=== PATIENT | male | born 1930 | race Caucasian/White ===

== ENCOUNTER 2016-06-03 07:39 | Emergency (ER) | payer MEDICARE ==
[2013-04-16 12:32] VITALS: BMI 33.5
[~2016-06-03 07:39] MED LIST: CARDIZEM60 MG PO; LISINOPRIL10 MG PO; NORCO 5/325 TAB1 TA1 PO; PRILOSEC20 MG PO; RYTHMOL150 MG PO
[2016-06-03 08:49] LABS: ALBUMIN 3.8 g/dL (3.4-5.0); ALKALINE PHOSPHATASE 66 U/L (46-116); ALT (SGPT) 18 U/L (10-68); BILIRUBIN - TOTAL 0.93 mg/dL (0.2-1.3); CALC OSMOLALITY 282 mosm/kg (275-300); CALCIUM 9.1 mg/dL (8.5-10.1); CARBON DIOXIDE 30.2 mmol/L (21.0-32.0); CHLORIDE - SERUM 102 mmol/L (98-107); CREATININE - SERUM 1.4 mg/dL (0.6-1.3); GLUCOSE 120 mg/dL (74-106); POTASSIUM - SERUM 4.5 mmol/L (3.5-5.1); PROTEIN - SERUM 7.2 g/dL (6.4-8.2); SODIUM 139 mmol/L (136-145); UREA NITROGEN 24 mg/dL (7-18); eGFR NON AFRICAN AMERICAN 51 mL/min (90-120)
[2016-06-03 08:58] LABS: PRO BNP 807 pg/mL (0-450)
[2016-06-03 08:59] LABS: TROPONIN-I < 0.017 ng/mL (0.000-0.060)
[2016-06-03 09:29] LABS: BASOPHILS 0.1 % (0.0-2.0); EOSINOPHILS 1.1 % (0-7); HEMATOCRIT 47.2 % (42.0-54.0); HEMOGLOBIN 15.6 g/dL (13.5-17.5); IMMATURE GRANULOCYTES 0.3 % (0-5); LYMPHOCYTES 22.8 % (15-50); MCHC 33.1 g/dL (31.0-37.0); MCV 96.7 fL (80.0-100.0); MEAN PLATELET VOLUME 11.4 fL (7.4-10.4); NEUTROPHILS 66.7 % (40-80); PLATELET COUNT 133 10x3/uL (130-400); RBC 4.88 10x6/uL (4.20-6.10); RDW 13.8 % (11.5-14.5); WBC 7.3 10x3/uL (4.8-10.8)
[2016-06-03 11:43] LABS: APPEARANCE CLEAR (CLEAR); BACTERIA FEW /hpf (NONE SEEN); BILIRUBIN NEGATIVE (NEGATIVE); COLOR STRAW (YELLOW); EPITHELIAL CELLS 0-5 /hpf (0-5); GLUCOSE NEGATIVE (NEGATIVE); KETONE NEGATIVE (NEGATIVE); LEUKOCYTE ESTERASE 1+ (NEGATIVE); MUCUS <1+ /lpf (NONE SEEN); NITRITE POSITIVE (NEGATIVE); PH 7.5 (5.0-6.0); PROTEIN NEGATIVE (NEGATIVE); UROBILINOGEN NORMAL (NORMAL); WHITE CELLS - URINE 0-5 /hpf (0-5)
[2016-08-10 12:10] VITALS: BMI 31.8
== END 2016-06-03 11:46 | disposition home or self-care (01) ==
LOC: EDBD 07:39 → D.ER 07:39
PROVIDERS: Emergency Medicine
DX: I50.9 Heart failure, unspecified (principal); R06.00 Dyspnea, unspecified; I10 Essential (primary) hypertension; K21.9 Gastro-esophageal reflux disease without esophagitis; I48.91 Unspecified atrial fibrillation; Z95.0 Presence of cardiac pacemaker

== ENCOUNTER → 2016-07-16 16:49 | Outpatient (CLI) | payer MEDICARE ==
[2013-04-16 12:32] VITALS: BMI 33.5
[~2016-07-16 16:49] MED LIST changes: +DILAUDID4 MG PO; +FLOMAX0.4 MG PO; +FORTAZ INJ500 MG IM; +MILK OF MAGNESI30 ML PO; +MIRALAX17 GM PO; +OMEPRAZOLE20 M1 PO; +PERCOCET 10/3251 TA1 PO; +PROPAFENONE HC150 MG PO; +PROSCAR5 MG PO
[2016-08-10 12:10] VITALS: BMI 31.8
== END | disposition home or self-care (01) ==
LOC: D.LABREF 16:49
DX: R31.9 Hematuria, unspecified (principal)

== ENCOUNTER 2016-08-04 05:21 | Day surgery (SDC) | payer MEDICARE, MEDICAID ==
--- NOTE | 2016-08-03 11:51 | NUR ---
PATIENT HERE FOR [facility] APPT. DR. CELESTIN HERE TO SEE PATIENT & REVIEW EKG. T97.8, R22, HR122, BP 146/106. PATIENT STATES "I'M HAVING A LOT OF PAIN 8/10 SCALE BECAUSE OF THIS KIDNEY STONE" ALSO RELATES "I DON'T THINK I TOOK MY MORNING MEDS". EKG & ABOVE INFO FAXED/RELATED TO MALISSA AT DR. VU'S OFFICE. MALISSA'S ASST. CALLED BACK & STATES "PATIENT IS OK FOR SURGERY TOMORROW, TELL HIM TO GO HOME & TAKE HIS MEDS". PATIENT & DAUGHTER INFORMED. ESCORTED TO CAR BY THIS NURSE. JOSE BENNETT CRNA NOTIFIED PATIENT CLEARED.
[2016-08-03 13:36] LABS: ANION GAP 10.2 mmol/L (8-16); CALCIUM 9.2 mg/dL (8.5-10.1); CARBON DIOXIDE 33.7 mmol/L (21.0-32.0); CREATININE - SERUM 1.2 mg/dL (0.6-1.3); POTASSIUM - SERUM 3.9 mmol/L (3.5-5.1)
[2016-08-03 13:45] LABS: APTT 26.5 SECONDS (22.8-39.4)
[2016-08-03 14:40] LABS: BASOPHILS 0.4 % (0.0-2.0); EOSINOPHILS 0.4 % (0-7); HEMATOCRIT 45.5 % (42.0-54.0); HEMOGLOBIN 14.9 g/dL (13.5-17.5); IMMATURE GRANULOCYTES 0.2 % (0-5); LYMPHOCYTES 35.6 % (15-50); MCHC 32.7 g/dL (31.0-37.0); MCV 97.6 fL (80.0-100.0); MONOCYTES 13.2 % (2-11); NEUTROPHILS 50.2 % (40-80); RBC 4.66 10x6/uL (4.20-6.10); RDW 13.2 % (11.5-14.5); WBC 5.7 10x3/uL (4.8-10.8)
[2016-08-03 14:42] LABS: PLATELET COUNT 102 10x3/uL (130-400)
[2016-08-03 14:43] LABS: MEAN PLATELET VOLUME 12.2 fL (7.4-10.4)
[2016-08-04] VITALS (10 sets, daily range): BP systolic 128–174; BP diastolic 55–115; Ht 177.8 cm; Wt 100.9 kg
[~2016-08-04] VITALS: Ht 177.8 cm; Wt 100.9 kg
--- NOTE | ~2016-08-04 | HEMODYNAMI ---
PATIENT:COOPER BUCIO MEDICAL RECORD: [id number] : 28 [id number] ADMISSION DATE: 08/04/16 Generatedon:08/04/201612:51 Patient name: COOPER BUCIO Patient #: [id number] SSN: : [id number] Date of study: 08/04/2016 Page: Of Hemodynamic Procedure Report Patient Data Patient Demographics Procedure consent was obtained First Name: COOPER Gender: Male Last Name: FORTUNATO : 1930 Middle Initial: G Age: 86 year(s) Patient #: [id number] Race: Unknown Additional ID: [id number] Contact details [address]: [address] [place] [address] State: [place] City: [place] Zip code: [address] Admission Admission Data Admission Date: 08/04/2016 Admission Time: 5:21 Procedure Procedure Types Cath Procedure Peripheral Cath Diagnostic Procedure Miscellaneous Procedure Description Procedure Date Procedure Date: 08/04/2016 Procedure Start Time: 12:19 Procedure Staff Name Function Phi León MD Performing Physician Haydee Marin RT Scrub Ana Merlos RN Nurse Jean Pierre Vogt RT Monitor Flor Silver RN Nurse Procedure Data Cath Procedure Fluoroscopy Diagnostic fluoroscopy Total fluoroscopy Time: 7.2 time: 7.2 min min Diagnostic fluoroscopy Total fluoroscopy dose: 199 dose: 199 mGy mGy Contrast Material Contrast Material Type Amount (ml) Isovue 300 25 Procedure Medications Medication Administration Route Dosage Versed I.V. 1 mg Fentanyl 50 mcg Versed I.V. 2 mg Fentanyl I.V. 50 mcg unlisted medication I.V.P.B 1 g Fentanyl I.V. 50 mcg Fentanyl I.V. 50 mcg Versed I.V. 1 mg Hemodynamics Rest Heart Rate: 124 (bpm) Snapshots Pre Cath Intra NCS Post Cath Vital Signs Time Heart Resp SPO2 NIBP (mmHg) Rhythm Pain Sedation Rate (ipm) (%) Status Level (bpm) 11:39:24 85 21 100 Disturbed A-Fib 0 (11) 10(A) , No pain 11:41:50 114 16 99 Measuring A-Fib 0 (11) 10(A) , No pain 11:41:54 115 12 99 151/115(133) A-Fib 0 (11) 10(A) , No pain 11:46:06 93 17 100 147/101(122) A-Fib 0 (11) 10(A) , No pain 11:50:14 93 16 100 141/96(115) A-Fib 0 (11) 10(A) , No pain 11:54:23 85 17 100 135/95(118) A-Fib 0 (11) 10(A) , No pain 11:58:32 91 16 100 137/103(124) A-Fib 0 (11) 10(A) , No pain 12:03:04 100 17 100 139/101(117) A-Fib 0 (11) 10(A) , No pain 12:07:12 92 16 100 138/92(109) A-Fib 0 (11) 10(A) , No pain 12:11:25 93 14 100 120/80(105) A-Fib 0 (11) 10(A) , No pain 12:15:25 86 16 99 128/93(111) A-Fib 0 (11) 9(A) , No pain 12:20:26 84 15 100 126/83(109) A-Fib 0 (11) 9(A) , No pain 12:24:32 95 16 99 125/90(106) A-Fib 0 (11) 9(A) , No pain 12:28:36 97 16 99 126/89(109) A-Fib 0 (11) 9(A) , No pain 12:32:38 93 17 99 129/94(107) A-Fib 0 (11) 10(A) , No pain 12:36:41 101 15 98 132/94(115) A-Fib 0 (11) 9(A) , No pain 12:40:47 103 25 98 145/102(125) A-Fib 0 (11) 9(A) , No pain 12:45:01 115 16 99 153/99(125) A-Fib 0 (11) 9(A) , No pain 12:49:01 No Cuff A-Fib 0 (11) 9(A) , No pain Medications Time Medication Route Dose Verified Delivered Reason Notes Effectiven ess by by 11:50:08 Cefipime I.V.P.B 1 g Ana Ana Per Chelita Chelita protocol RN RN 12:09:18 Versed I.V. 1 mg Ana Ana for Chelita Chelita sedation RN RN 12:09:52 Fentanyl I.V. 50 Ana Ana for mcg Chelita Chelita sedation RN RN 12:14:35 Fentanyl 50 Ana Ana for mcg Chelita Chelita sedation RN RN 12:19:01 Versed I.V. 2 mg Flor Flor for Nadeem [facility] RN sedation 12:19:15 Fentanyl I.V. 50 Flor Flor for mcg King YAMILEX Nadeem RN sedation 12:25:12 Fentanyl I.V. 50 Flor Flor for mcg King YAMILEX Nadeem RN sedation 12:33:01 Versed I.V. 1 mg Flor Flor for Nadeem [facility] RN sedation Procedure Log Time Note 11:18:26 Jean Pierre Vogt RT (R) (CV) sent for patient. Start room use. 11:18:35 Time tracking: Regular hours 11:18:39 Plan of Care:Hemodynamics will remain stable., Cardiac rhythm will remain stable., Comfort level will be maintained., Respiratory function will remain adequate., Patient/ family verbilizes understanding of procedure., Procedure tolerated without complication., Recovers from procedure without complications.. 11:18:52 Patient received from Outpatients to IR Alert and oriented. Tansferred to table in Prone position. 11:18:53 Correct patient and procedure confirmed by team. 11:18:55 Signed procedure consent form obtained from patient. 11:18:57 ECG and BP/O2 sat monitors applied to patient. 11:18:59 Full Disclosure recording started 11:18:59 - 11:19:03 H&P Date Dictated: 08/04/2016 H&P Addendum completed by physician on day of procedure. (MUST COMPLETE FOR ALL OUTPATIENTS). 11:19:04 Pre-procedure instructions explained to patient. 11:19:04 Pre-op teaching completed and patient verbalized understanding. 11:19:06 Family in waiting room. 11:19:15 Patient NPO since Midnight. 11:19:19 Is the patient allergic to Iodine/contrast media? No. 11:19:22 Is patient on blood thinner?No 11:19:24 Patient diabetic? No. 11:19:31 ----Pre-sedation anethsthesia assessment.---- 11:19:33 Previous problem with sedation/anesthesia? No ? 11:19:35 Snore? Yes 11:19:36 Sleep apnea? No 11:19:38 Deviated septum? No 11:19:39 Opens mouth fully? Yes 11:19:42 Sticks out tongue? Yes 11:19:45 Airway obstruction? No ? 11:19:51 Dentures? Yes out 11:19:57 Use device set IR Diagnostic 11:19:58 Sterile Angiographic Pack opened to sterile field. 11:20:02 Bag Decanter opened to sterile field. 11:31:05 Patient pain scale 0/10 no. 11:31:31 IV patent on arrival in left forearm with 0.9% NaCl at [facility]. 11:31:33 Sharps counted by scrub and verified by R.N. 11:31:33 Alarms reviewed by R. N. 11:40:01 Vital chart was started 11:40:02 Baseline sample Acquired. 11:40:06 Rhythm: sinus rhythm 11:50:08 Cefipime 1 g I.V.P.B was administered by Ana Merlos RN; Per protocol; 11:53:30 Baseline sample Acquired. 12:00:18 Right Lumbar was prepped with chlora-prep and draped in sterile fashion . 12:07:46 Physician arrived 12:07:47 --------ALL STOP TIME OUT------ 12:07:47 Final Timeout: patient, procedure, and site verified with staff and physician. All members of the team are in agreement. 12:07:52 Right Lumbar site verified by team. 12:08:14 Physical assessment completed. ASA score P 3 - A patient with severe systemic disease as per Phi León MD. 12:08:18 Sedation plan: IV Moderate Sedation Versed, Fentanyl 12:09:18 Versed 1 mg I.V. was administered by Ana Merlos RN; for sedation; 12:09:52 Fentanyl 50 mcg I.V. was administered by Ana Merlos RN; for sedation; 12:14:35 Fentanyl 50 mcg was administered by Ana Merlos RN; for sedation; 12:18:56 Procedure started. 12:19:01 Versed 2 mg I.V. was administered by Flor Silver RN; for sedation; 12:19:04 Local anesthetic to Lumbar area with Lidocaine 1% by Phi León MD.INITIAL ACCESS ONLY 12:19:07 KIT, INTRODUCER ACCUSTICK II W/C opened to sterile field. 12:19:15 Fentanyl 50 mcg I.V. was administered by Flor Silver RN; for sedation; 12:25:12 Fentanyl 50 mcg I.V. was administered by Flor Silver RN; for sedation; 12:31:[address] .035 145 glide wire opened to sterile field. 12:31:55 Terumo 5FR COBRA 65CM glide catheter opened to sterile field. 12:33:01 Versed 1 mg I.V. was administered by Flor Silver RN; for sedation; 12:35:53 [place] Sci AMPLATZ Super stiff 180cm guide wire opened to sterile field . 12:37:08 [place] Sci Amplatz Super Stiff 75CM guide wire opened to sterile field. 12:37:09 BAG, DRAINAGE EMPTY 600ML W/VIKTORIA opened to sterile field. 12:45:23 Procedure ended.(Physican Out) 12:46:11 Fluoroscopy time 07.20 minutes. 12:46:32 Fluoroscopy dose: 199 mGy 12:46:32 Flurop Dose total: 199 12:47:33 Contrast amount:Isovue 300 25ml. 12:47:35 Sharps counted by scrub and verified by R.N. 12:47:42 Post-op/insertion site Right Femoral artery dressed using a 4 x 4 and Tegaderm. 12:47:53 5fr.cath left in pt 12:47:59 Post-procedure physical assessment completed. ASA score P 3 - A patient with severe systemic disease as per Phi León MD. 12:48:02 Post procedure rhythm: unchanged. 12:48:04 Post procedure instruction explained to patient.Patient verbalizes understanding. 12:48:05 Procedure and supply charges have been captured, reviewed, submitted an d are correct. 12:49:18 Report given to Other. 12:49:22 Patient transfered to Other with Bed. 12:51:08 Vital chart was stopped Device Usage Item Name Manufacture Quantity Catalog Hospital Part Current Minimal Lot# / Number Charge Number Stock Stock Serial# Code Sterile Cardinal 1 [id number] 5 Angiographic Health Pack Bag Decanter Microtek 1 [id number] [id number] [id number] 5 Medical [employer] KIT, [place] 1 [id number] 678990 726098 5 INTRODUCER Scientific ACCUSTICK II W/C Cook Cook Medical 1 [id number] 047569 5 [id number]RUNNER .035 145 glide wire Terumo 5FR Terumo 1 [id number] 389375 281236 5 COBRA 65CM glide catheter [employer] Sci [place] 1 [id number] [id number] 5 [id number] AMPLATZ Scientific Super stiff 180cm guide wire [employer] [place] 1 [id number] 962864 775805 5 [id number] Amplatz Scientific Super Stiff 75CM guide wire BAG, Merit 1 [id number] 419347 995730 5 DRAINAGE Medical EMPTY 600ML W/VIKTORIA Signature Audit [place] Stage Time Signature Unsigned Intra-Procedure 08/04/2016 Jean Pierre 12:51:04 PM Sin RT (R) (CV) Signatures Monitor : Jean Pierre Signature : Sin RT Date : Time : [address] [address] [place] [address]
--- NOTE | 2016-08-04 00:47 | NUR ---
C/O INCISIONAL PAIN RATES PAIN LEVEL #6. PERCOCET TAB ONE PO GIVEN FOR PAIN CONTROL.
[~2016-08-04 05:21] MED LIST changes: -DILAUDID4 MG PO; -FLOMAX0.4 MG PO; -FORTAZ INJ500 MG IM; -MILK OF MAGNESI30 ML PO; -MIRALAX17 GM PO; -OMEPRAZOLE20 M1 PO; -PERCOCET 10/3251 TA1 PO; -PROPAFENONE HC150 MG PO; -PROSCAR5 MG PO
[2016-08-04] MEDS ORDERED: OMEPRAZOLE20 M1 PO (08:58)
[2016-08-04] MEDS ORDERED: PERCOCET 10/3251 TA1 PO (09:00)
[2016-08-04] MEDS ORDERED: FORTAZ INJ500 MG IM (09:02)
--- NOTE | 2016-08-04 15:48 | NUR ---
REPORT RECEIVED FROM YAMILEX POTTS IN RECOVERY AT THIS TIME. STATED THAT PT'S PRESSURE HAD BEEN RUNNING IN THE 140-150'S SYSTOLIC AND WAS 112 DIASTOLIC. ASKED HER IF SHE GAVE THE PATIENT ANYTHING FOR THE BLOOD PRESSURE AND HER RESPONSE WAS, "THAT IS HIS NORMAL RANGE." EXPLAINED THAT A BLOOD PRESSURE IN THAT RANGE WAS NOT NORMAL AND SHE STATED, "WELL MAYBE HIS MEDICAL DOCTORS COULD PROVIDE YOU WITH SOME MEDICATION TO GIVE HIM." EXPLAINED THAT THERE WAS NOT A CONSULT FOR MEDICAL MANAGEMENT. REPORT CONCLUDED AND PT BROUGHT TO ROOM 2218. BLOOD PRESSURE 150/108 AND HEART RATE [address] WILL NOTIFY DR AHUMADA.
--- NOTE | 2016-08-04 16:16 | NUR ---
NOTIFIED DR AHUMADA OF BLOOD PRESSURE AND PAIN AT THIS TIME. NEW ORDERS GIVEN FOR PAIN MEDICATION AND WAS TOLD TO CONTACT DR CELESTIN REGARDING HYPERTENSION. ORDER OBTAINED TO PLACE PT ON TELEMETRY DUE TO EXTENSIVE CARDIAC HISTORY.
--- NOTE | 2016-08-04 16:40 | NUR ---
DR CELESTIN NOTIFIED AT THIS TIME REGARDING BLOOD PRESSURE 174/106 AND HEART RATE 123 A-FLUTTER. HE GAVE ORDERS TO GET A STAT EKG AND SAID THAT HE WOULD COME TO THE FLOOR AND SEE THE PATIENT.
--- NOTE | 2016-08-04 16:56 | NUR ---
DR CELESTIN ON THE FLOOR AT THIS TIME. NEW ORDER GIVEN FOR APRESOLINE AND TO CONSULT CARDIOLOGY PER DR CELESTIN. APRESOLINE 10MG ADMINISTERED AT THIS TIME PER ORDER. FAMILY AT BEDSIDE. WILL CONTINUE TO MONITOR PT.
--- NOTE | 2016-08-04 17:15 | NUR ---
BLOOD PRESSURE 132/85 AND HEAR RATE 123 A-FLUTTER AT THIS TIME. REQUESTING INCREASE IN PAIN MEDICATION. LEFT VOICEMAIL ON DR AHUMADA'S TELEPHONE. FAMILY REMAINS AT BEDSIDE. CALL LIGHT IN REACH.
--- NOTE | 2016-08-04 18:35 | NUR ---
DR AHUMADA ON THE FLOOR ASSESSING PT. NEW ORDERS GIVEN FOR PAIN MEDICATION.
--- NOTE | 2016-08-04 19:44 | NUR ---
ASSESSMENT PER FLOWSHEET. PT ON TELM. SHOWS ATRIAL FLUTTER WITH HR 123. NO DISTRESS. IV PATENT RT HAND SALINE LOCKED. IF PATENT LEFT ARM OF LR AT 20 CC'S/HR B/P=89/51 INCREASED PT'S IV RATE TO 75CC'S/HR. NEPHROSTOMY TUBE PATENT TO RT FLANK AREA CONNECTED TO A GODWIN BAG WITH BLOODY DRAINAGE NOTED. O2 ON 4L/M PER NC. NO DISTRESS. C/O INCISIONAL PAIN. RATES PAIN LEVEL #6-7. PERCOCET TAB ONE PO GIVEN FOR PAIN CONTROL.
--- NOTE | 2016-08-04 21:30 | NUR ---
VOIDS IN URINAL. BLOODY URINE.
[2016-08-05] VITALS: BP 142/84
--- NOTE | 2016-08-05 02:00 | NUR ---
VOIDS IN URINAL AND SPILLS SOME ON FLOOR CLEANED AREA. PT RESTLESS.
[2016-08-05 03:00] VITALS: BP 143/64
--- NOTE | 2016-08-05 04:46 | NUR ---
RESTING AT THIS TIME ANTIBIOTIC INFUSING AT THIS TIME.
--- NOTE | 2016-08-05 07:00 | NUR ---
REPORT RECEIVED FROM GOGGLES ASSEMBLER NURSE. CALL LIGHT IN REACH.
--- NOTE | 2016-08-05 08:31 | NUR ---
ASSESSMENT COMPLETED. AM MEDS ADMINISTERED. CALL LIGHT IN REACH. FAMILY IN ROOM. WILL CONTINUE WITH PLAN OF CARE.
--- NOTE | 2016-08-05 08:35 | NUR ---
PATIENT ALERT IN BED WITH GUEST AT BEDSIDE. RESPIRATIONS EVEN AND UNLABORED. MATILDE BROUSSARD PRIMARY NURSE AT BEDSIDE. SIDE RAILS UP X2. BED IN LOW POSITION. CALL LIGHT IN REACH.
[2016-08-05 09:08] VITALS: BP 97/55
--- NOTE | 2016-08-05 09:28 | OP ---
PATIENT NAME: COOPER BUCIO MEDICAL RECORD: [id number] :29 LOCATION:[id number] ADMISSION DATE: SURGEON: MICHAEL AHUMADA MD DATE OF OPERATION: 08/04/2016 SURGEON: Michael Ahumada MD. ANESTHESIA: General anesthesia by Dr. Saba. PREOPERATIVE DIAGNOSIS: Right lower pole 10 mm infected kidney stone. FINDINGS: Right lower pole 10 mm infected kidney stone. PROCEDURES: Right percutaneous nephrolithotomy. SPECIMENS: Renal stone. ESTIMATED BLOOD LOSS: Minimal CLINICAL HISTORY: The patient is an 86-year-old male patient of Dr. Sherif French. 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 He has been going to Dr. French's office twice a day for several months, getting IM Fortaz injection to treat this chronic infection. The source of his infections seems to be a chronically infected right renal stone. It should be noted that a CT scan report was incorrectly reported as having the stone on the left side. However, I have reviewed the CT and KUB imaging with Dr. Phi León, the interventional radiologist and we both agreed that the stone is definitely on the right side. We will contact the radiologist who read the initial report to have him correct his report. He comes now to have the stone removed by right percutaneous nephrolithotomy. Earlier today, he went to the interventional radiology suite and Dr. León managed to get access into the lower pole christen containing the stone. Dr. León also left a nephroureteral catheter going down to the bladder and in the nephroureteral catheter lumen, an Amplatz Super Stiff wire was placed. We come now to complete the removal of the stone. DESCRIPTION OF PROCEDURE: The patient was given a general anesthesia while he was in supine position. He was then turned into the prone position on the Stephan frame. His head was well supported. He was then prepped and draped. We used a craniotomy draped with a small hole cut out to allow the nephroureteral wire to go through the hole. A 1-cm incision was made on each side of the nephrostomy access site on the skin. A dual-lumen catheter was then inserted under fluoroscopic vision to make sure that it would go into the proximal ureter. When it was in the proximal ureter, a safety wire which was a Sensor wire was placed down into the bladder through the second lumen of the dual lumen catheter. Once the [address], the dual lumen catheter was removed, leaving the [address] The sensor wire was then clamped to the drapes to act as a safety wire. We worked over the Super Stiff wire. The NephroMax balloon dilator was then inserted over the Super Stiff wire. Once the tip of the balloon dilator was at the UPJ junction level, we then dilated the balloon to 18 atmospheres. A 30-Luxembourgish working sheath was then inserted over the balloon to the level of the renal stone. The balloon was then deflated and removed entirely. This Super Stiff wire remained as well as a working sheath. We put the nephroscope down. We were able to find the stone quite readily. I was unable to get the Cook Pgrx-J-Pklccw graspers around the stone because it OPERATIVE REPORT [id number] COOPER BUCIO filled up the lower pole christen and the basket could not expand around the stone. We then used trifurcated grasper to pull the stone into the renal pelvis. We could then get the Mcbq-S-Fusjpo basket wires around the stone and the stone was entirely removed. Fluoroscopy revealed no further radiodense stones. CT scan previously had shown only one stone present. Nephroscopy was again repeated to make sure that no further stone particles remain. He was stone free. We then removed the scope. A 24-Luxembourgish Malecot nephrostomy tube was then placed down over the Super Stiff wire into the renal pelvis. Once it was in the renal pelvis, the stylet was removed allowing the Malecot wings to expand. The Super Stiff wire was entirely removed. The working sheath was removed. Fluoroscopy confirmed that we were indeed in the renal pelvis. The safety wire was also entirely removed. The skin was sutured using a 2-0 silk suture. It was also sutured to the nephrostomy tube. The nephrostomy tube was put to bag drainage. Dressings of 4 x 4 and ABD pads and tape were applied over the nephrostomy tube site. The patient will be admitted for overnight observation. TRANSINT:[id number] Voice Confirmation ID: [id number] DOCUMENT ID: [id number] MICHAEL AHUMADA MD at 0928 CC: [id number] DICTATION DATE: 08/04/16 1500 COLLECTION TEAM LEAD: 08/04/16 1620 [facility] [address] [id number]
--- NOTE | 2016-08-05 10:20 | NUR ---
DRSG TO BACK SATURATED. PRESSURE DRSG APPLIED. C/O GAS. INSTRUCTED PATIENT TO WALK IN HALLWAY WHICH HE DID. O2 HAS BEEN WEANED OFF. SATS 96% ON ROOM AIR. CALL LIGHT IN REACH.
--- NOTE | 2016-08-05 10:49 | NUR ---
NORCO AND XANAX PO WITH AM MEDS ADMINISTERED. CALL LIGHT IN REACH.
--- NOTE | 2016-08-05 12:10 | NUR ---
DR. AHUMADA IN ROOM TO SEE PATIENT.
--- NOTE | 2016-08-05 12:34 | NUR ---
CARMITA PO. DILAUDID 2 MG SIVP. FAMILY IN ROOM. CALL LIGHT IN REACH.
[2016-08-05 12:55] VITALS: BP 92/51
--- NOTE | 2016-08-05 13:50 | NUR ---
STATES HE STILL HAS PAIN. TOO SOON FOR ANYTHING ELSE AT THIS TIME.
--- NOTE | 2016-08-05 15:32 | NUR ---
PERCOCET AND PROTONIX. FORTAZ IVPB. CALL LIGHT IN REACH.
--- NOTE | 2016-08-05 16:50 | NUR ---
DRSG CHANGED AGAIN D/T SATURATION.
[2016-08-05 16:59] VITALS: BP 109/63
--- NOTE | 2016-08-05 18:56 | NUR ---
NO CHANGES IN INITIAL ASSESSMENT. CALL LIGHT IN REACH. WILL CONTINUE WITH PLAN OF CARE.
[2016-08-05 20:00] VITALS: BP 128/83
[2016-08-06] VITALS: BP 115/67
--- NOTE | 2016-08-06 07:15 | NUR ---
REPORT RECEIVED FROM DELI DEPARTMENT MANAGER NURSE. CALL LIGHT IN REACH.
[2016-08-06 07:57] VITALS: BP 107/69
--- NOTE | 2016-08-06 08:51 | NUR ---
ASSESSMENT COMPLETED. AM MEDS ADMINISTERED. DR. AHUMADA IN ROOM. NEPHROSTOMY TUBE REMOVED AND DRSTeri APPLIED. FAMILY IN ROOM. CALL LIGHT IN REACH. WILL CONTINUE WITH PLAN OF CARE.
--- NOTE | 2016-08-06 09:39 | NUR ---
iv dcd with cath intact.
--- NOTE | 2016-08-06 10:49 | NUR ---
PERCOCET 2 PO PER C/O PAIN OF 7. CALL LIGHT IN REACH.
--- NOTE | 2016-08-06 11:50 | NUR ---
RESTING WITH EYES CLOSED. RESP EVEN AND UNLABORED. CALL LIGHT IN REACH.
[2016-08-06] MEDS ORDERED: DILAUDID4 MG PO (11:59)
--- NOTE | 2016-08-06 13:10 | NUR ---
PATIENT UP IN HALLWAY WITH FAMILY. NO SIGNS OF DISTRESS NOTED.
--- NOTE | 2016-08-06 13:15 | NUR ---
DC INSTRUCTIONS EXPLAINED TO PATIENT AND FAMILY. VERBALIZED UNDERSTANDING. RX FOR DILAUDID HANDED TO PATIENT/
[2016-08-13 14:22] LABS: CALCULI - CA OXALATE DIHYDRATE 10 % (()); CALCULI - CA OXALATE MONOHYDR 70 % (()); CALCULI - CALCIUM PHOSPHATE 20 % (()); CALCULI - COLOR Tan (()); CALCULI - SIZE 11x8x6 mm (()); CALCULI - WEIGHT 394.2 mg (())
== END 2016-08-06 13:15 | disposition home or self-care (01) ==
LOC: D.MS 05:21 → D.OPS 05:21 → D.PAN 07:30 → D.OPS 11:00 → D.MS 15:34 → D.OPS 08-05 07:30 → D.PAN 08-05 07:30 → D.OPS 08-06 13:15
PROVIDERS: Anesthesiology; Urology
DX: N20.0 Calculus of kidney (principal)

== ENCOUNTER 2016-08-07 22:28 | Inpatient (IN) | payer MEDICARE, MEDICAID ==
[~2016-08-07 22:28] MED LIST changes: +DILAUDID4 MG PO; +FORTAZ INJ500 MG IM; +OMEPRAZOLE20 M1 PO; +PERCOCET 10/3251 TA1 PO
[2016-08-07 23:24] LABS: APPEARANCE CLOUDY (CLEAR); BILIRUBIN NEGATIVE (NEGATIVE); COLOR YELLOW (YELLOW); GLUCOSE NEGATIVE (NEGATIVE); KETONE NEGATIVE (NEGATIVE); LEUKOCYTE ESTERASE 1+ (NEGATIVE); NITRITE NEGATIVE (NEGATIVE); PROTEIN 1+ mg/dL (NEGATIVE); SPECIFIC GRAVITY 1.005 (1.005-1.020); UROBILINOGEN NORMAL (NORMAL)
[2016-08-07 23:27] LABS: RED CELLS - URINE >50 /hpf (0-5)
[2016-08-07 23:28] LABS: AMORPHOUS SEDIMENT <1+ /lpf (NONE SEEN); BACTERIA FEW /hpf (NONE SEEN); EPITHELIAL CELLS 0-5 /hpf (0-5)
[2016-08-08 01:03] LABS: CALCIUM 8.5 mg/dL (8.5-10.1); CARBON DIOXIDE 35.3 mmol/L (21.0-32.0); CREATININE - SERUM 1.3 mg/dL (0.6-1.3); POTASSIUM - SERUM 3.3 mmol/L (3.5-5.1)
[2016-08-08 01:06] LABS: HEMOGLOBIN 15.4 g/dL (13.5-17.5); LYMPHOCYTES 17.7 % (15-50); MCH 32.4 pg (26.0-34.0); MCHC 34.2 g/dL (31.0-37.0); MCV 94.7 fL (80.0-100.0); NEUTROPHILS 72.6 % (40-80); RBC 4.75 10x6/uL (4.20-6.10); RDW 13.9 % (11.5-14.5)
[2016-08-08 01:07] LABS: PLATELET COUNT 57 10x3/uL (130-400)
[2016-08-08] MEDS ORDERED: FLOMAX0.4 MG PO (02:09)
[2016-08-08] MEDS ORDERED: MIRALAX17 GM PO (03:27)
[2016-08-08] MEDS ORDERED: MILK OF MAGNESI30 ML PO (03:27)
[2016-08-09 06:07] LABS: BASOPHILS 0.1 % (0-2); EOSINOPHILS 1.6 % (0-7); IMMATURE GRANULOCYTES 0.1 % (0-5); LYMPHOCYTES 19.8 % (15-50); MCH 31.6 pg (26.0-34.0); MCHC 32.3 g/dL (31.0-37.0); MEAN PLATELET VOLUME 11.1 fL (7.4-10.4); MONOCYTES 13.3 % (2-11); NEUTROPHILS 65.1 % (40-80); RDW 13.3 % (11.5-14.5)
[2016-08-09 06:21] LABS: ALBUMIN 2.2 g/dL (3.4-5.0); ANION GAP 7.4 mmol/L (8-16); BILIRUBIN - TOTAL 0.61 mg/dL (0.2-1.3); CALCIUM 8.3 mg/dL (8.5-10.1); CREATININE - SERUM 1.1 mg/dL (0.6-1.3); POTASSIUM - SERUM 3.4 mmol/L (3.5-5.1); PROTEIN - SERUM 4.8 g/dL (6.4-8.2)
[2016-08-09 06:28] LABS: HEMATOCRIT 35.3 % (42.0-54.0); HEMOGLOBIN 11.4 g/dL (13.5-17.5); MCV 97.8 fL (80.0-100.0); PLATELET COUNT 77 10x3/uL (130-400); RBC 3.61 10x6/uL (4.20-6.10); WBC 7.4 10x3/uL (4.8-10.8)
[2016-08-09 15:33] LABS: CKMB 0.7 U/L (0.0-3.6); CREATINE KINASE 21 UL (21-232)
[2016-08-09 15:34] LABS: TROPONIN-I < 0.017 ng/mL (0.000-0.060)
[2016-08-09 21:27] LABS: CKMB 0.6 U/L (0.0-3.6); CREATINE KINASE 31 UL (21-232)
[2016-08-09 21:32] LABS: TROPONIN-I < 0.017 ng/mL (0.000-0.060)
[2016-08-10 03:53] LABS: BASOPHILS 0.2 % (0-2); HEMATOCRIT 34.5 % (42.0-54.0); IMMATURE GRANULOCYTES 0.2 % (0-5); MCHC 31.9 g/dL (31.0-37.0); MCV 97.2 fL (80.0-100.0); MEAN PLATELET VOLUME 11.2 fL (7.4-10.4); MONOCYTES 13.5 % (2-11); NEUTROPHILS 58.1 % (40-80); RBC 3.55 10x6/uL (4.20-6.10); RDW 13.1 % (11.5-14.5); WBC 6.1 10x3/uL (4.8-10.8)
[2016-08-10 04:18] LABS: PLATELET COUNT 131 10x3/uL (130-400)
[2016-08-10 04:35] LABS: ALBUMIN 2.2 g/dL (3.4-5.0); ANION GAP 8.4 mmol/L (8-16); BILIRUBIN - TOTAL 0.57 mg/dL (0.2-1.3); CALCIUM 8.6 mg/dL (8.5-10.1); CARBON DIOXIDE 31.7 mmol/L (21.0-32.0); CREATININE - SERUM 1.1 mg/dL (0.6-1.3); PROTEIN - SERUM 5.2 g/dL (6.4-8.2); THYROID STIMULATING HORMONE 7.27 uIU/mL (0.36-3.74)
[2016-08-10 04:39] LABS: CKMB 0.8 U/L (0.0-3.6); CREATINE KINASE 20 UL (21-232)
[2016-08-10 04:40] LABS: POTASSIUM - SERUM 4.1 mmol/L (3.5-5.1); TROPONIN-I 0.016 ng/mL (0.000-0.060)
[2016-08-10 09:56] LABS: CREATINE KINASE 25 UL (21-232)
[2016-08-10 09:59] LABS: TROPONIN-I < 0.017 ng/mL (0.000-0.060)
[2016-08-11 05:49] LABS: BASOPHILS 0.2 % (0-2); EOSINOPHILS 3.8 % (0-7); HEMATOCRIT 37.4 % (42.0-54.0); HEMOGLOBIN 12.2 g/dL (13.5-17.5); IMMATURE GRANULOCYTES 0.2 % (0-5); LYMPHOCYTES 31.8 % (15-50); MCH 31.6 pg (26.0-34.0); MCHC 32.6 g/dL (31.0-37.0); MCV 96.9 fL (80.0-100.0); MEAN PLATELET VOLUME 10.3 fL (7.4-10.4); MONOCYTES 16.9 % (2-11); NEUTROPHILS 47.1 % (40-80); RBC 3.86 10x6/uL (4.20-6.10); RDW 13.3 % (11.5-14.5); WBC 5.3 10x3/uL (4.8-10.8)
[2016-08-11 05:53] LABS: PLATELET COUNT 167 10x3/uL (130-400)
[2016-08-11 06:08] LABS: ALBUMIN 2.4 g/dL (3.4-5.0); ALKALINE PHOSPHATASE 50 U/L (46-116); ALT (SGPT) 16 U/L (10-68); BILIRUBIN - TOTAL 0.68 mg/dL (0.2-1.3); CALC OSMOLALITY 278 mosm/kg (275-300); CALCIUM 8.9 mg/dL (8.5-10.1); CARBON DIOXIDE 30.2 mmol/L (21.0-32.0); CHLORIDE - SERUM 104 mmol/L (98-107); GLUCOSE 103 mg/dL (74-106); POTASSIUM - SERUM 4.2 mmol/L (3.5-5.1); PROTEIN - SERUM 5.7 g/dL (6.4-8.2); SODIUM 139 mmol/L (136-145); UREA NITROGEN 16 mg/dL (7-18); eGFR NON AFRICAN AMERICAN 75 mL/min (90-120)
[2016-08-12 06:07] LABS: BASOPHILS 0.2 % (0-2); EOSINOPHILS 3.5 % (0-7); HEMATOCRIT 36.7 % (42.0-54.0); HEMOGLOBIN 11.7 g/dL (13.5-17.5); IMMATURE GRANULOCYTES 0.8 % (0-5); MCHC 31.9 g/dL (31.0-37.0); MCV 97.1 fL (80.0-100.0); MEAN PLATELET VOLUME 11.2 fL (7.4-10.4); MONOCYTES 17.6 % (2-11); NEUTROPHILS 52.9 % (40-80); PLATELET COUNT 123 10x3/uL (130-400); RBC 3.78 10x6/uL (4.20-6.10); RDW 13.3 % (11.5-14.5); WBC 5.2 10x3/uL (4.8-10.8)
[2016-08-12 06:27] LABS: ALBUMIN 2.3 g/dL (3.4-5.0); ALKALINE PHOSPHATASE 54 U/L (46-116); ALT (SGPT) 16 U/L (10-68); CALC OSMOLALITY 277 mosm/kg (275-300); CALCIUM 8.1 mg/dL (8.5-10.1); CARBON DIOXIDE 29.7 mmol/L (21.0-32.0); CHLORIDE - SERUM 104 mmol/L (98-107); CREATININE - SERUM 0.9 mg/dL (0.6-1.3); GLUCOSE 102 mg/dL (74-106); POTASSIUM - SERUM 4.1 mmol/L (3.5-5.1); PROTEIN - SERUM 5.3 g/dL (6.4-8.2); SODIUM 138 mmol/L (136-145); UREA NITROGEN 19 mg/dL (7-18); eGFR NON AFRICAN AMERICAN 85 mL/min (90-120)
[2016-08-12] MEDS ORDERED: LISINOPRIL10 MG PO (09:43)
[2016-08-12] MEDS ORDERED: CARDIZEM60 MG PO (09:43)
[2016-08-12] MEDS ORDERED: PROPAFENONE HC150 MG PO (09:44)
[2016-08-12] MEDS ORDERED: OMEPRAZOLE20 M1 PO (09:44)
[2016-08-12] MEDS ORDERED: PROSCAR5 MG PO (10:06)
[2016-08-12] MEDS ORDERED: DILAUDID4 MG PO (10:07)
== END 2016-08-12 10:50 | disposition home or self-care (01) | DRG 690 ==
LOC: D.ER 22:28 → D.MS 08-08 01:37 → D.M2 08-09 17:39
PROVIDERS: Family Medicine; Internal Medicine Cardiovascular Disease; ADMIT Urology
DX: N10 Acute pyelonephritis (principal); I48.92 Unspecified atrial flutter; B96.5 Pseudomonas (aeruginosa) (mallei) (pseudomallei) as the cause of diseases classified elsewhere; Z16.23 Resistance to quinolones and fluoroquinolones; I10 Essential (primary) hypertension; I48.91 Unspecified atrial fibrillation; K21.9 Gastro-esophageal reflux disease without esophagitis; G47.33 Obstructive sleep apnea (adult) (pediatric); N20.0 Calculus of kidney; K44.9 Diaphragmatic hernia without obstruction or gangrene; G89.29 Other chronic pain; M54.9 Dorsalgia, unspecified; N40.0 Benign prostatic hyperplasia without lower urinary tract symptoms; K59.09 Other constipation; Z87.891 Personal history of nicotine dependence

== ENCOUNTER 2017-01-14 18:00 | Inpatient (IN) | payer MEDICARE, MEDICAID ==
[~2017-01-14 18:00] MED LIST changes: +FLOMAX0.4 MG PO; +MILK OF MAGNESI30 ML PO; +MIRALAX17 GM PO; +PROPAFENONE HC150 MG PO; +PROSCAR5 MG PO
--- NOTE | 2017-01-14 18:20 | NUR ---
RECEIVED TO ROOM 2216 FROM MD OFFICE. CALL LIGHT IN REACH.
--- NOTE | 2017-01-14 18:25 | NUR ---
URINAL GIVEN TO PATIENT FOR SAMPLE
--- NOTE | 2017-01-14 18:30 | NUR ---
IV SITED TO LEFT WRIST WITH 22 GA X1 STICK PER YAMILEX CELAYA.
--- NOTE | 2017-01-14 18:51 | NUR ---
NS AND FRUIT AND VEGETABLE FACTORY WORKER INITIATED PER ORDER. CALL LIGHT IN REACH. WILL CONTINUE WITH PLAN OF CARE.
[2017-01-14] MEDS ORDERED: LISINOPRIL10 MG PO (18:59)
[2017-01-14 19:19] LABS: BASOPHILS 0.2 % (0-2); EOSINOPHILS 1.1 % (0-7); HEMATOCRIT 37.2 % (42.0-54.0); HEMOGLOBIN 12.3 g/dL (13.5-17.5); LYMPHOCYTES 29.8 % (15-50); MCH 31.8 pg (26.0-34.0); MCHC 33.1 g/dL (31.0-37.0); MCV 96.1 fL (80.0-100.0); MEAN PLATELET VOLUME 10.7 fL (7.4-10.4); MONOCYTES 10.8 % (2-11); NEUTROPHILS 58.1 % (40-80); RBC 3.87 10x6/uL (4.20-6.10); RDW 13.3 % (11.5-14.5); WBC 6.3 10x3/uL (4.8-10.8)
[2017-01-14 19:20] LABS: PLATELET COUNT 169 10x3/uL (130-400)
[2017-01-14 19:32] LABS: ANION GAP 6.8 mmol/L (8-16); CALCIUM 8.6 mg/dL (8.5-10.1); CARBON DIOXIDE 31.2 mmol/L (21.0-32.0); CREATININE - SERUM 1.3 mg/dL (0.6-1.3)
[2017-01-14 20:00] VITALS: BP 153/61
[2017-01-14 20:57] LABS: APPEARANCE CLEAR (CLEAR); BILIRUBIN NEGATIVE (NEGATIVE); COLOR YELLOW (YELLOW); GLUCOSE NEGATIVE (NEGATIVE); KETONE NEGATIVE (NEGATIVE); NITRITE NEGATIVE (NEGATIVE); PROTEIN NEGATIVE (NEGATIVE); UROBILINOGEN NORMAL (NORMAL)
[2017-01-14 20:58] LABS: BACTERIA FEW /hpf (NONE SEEN); RED CELLS - URINE OCC /hpf (0-5); WHITE CELLS - URINE 0-5 /hpf (0-5)
[2017-01-14 22:05] VITALS: BP 153/61; BMI 29.3
[2017-01-15] VITALS: BP 133/50
[2017-01-15 04:00] VITALS: BP 116/46
--- NOTE | 2017-01-15 05:54 | NUR ---
20G PIV STARTED IN LFA. LEFT WRIST PIV D/C WITH CATH INTACT DUE TO PUMP CONSTANTLY ALARMING
[2017-01-15 07:55] VITALS: BP 155/71
--- NOTE | 2017-01-15 08:10 | NUR ---
SCHEDULED MEDICATIONS ADMINISTERED WITHOUT DIFFICULTY AT THIS TIME. RESPIRATIONS EVEN AND NON LABORED. CALL LIGHT IN REACH, WILL CONTINUE WITH PLAN OF CARE.
[2017-01-15 08:40] VITALS: BP 159/81
--- NOTE | 2017-01-15 11:20 | NUR ---
SCHEDULED ANTIBIOTIC ADMINISTERED AT THIS TIME. MEDICAL EDUCATION COORDINATOR SETTINGS CHANGED PER ORDER.
[2017-01-15 12:44] VITALS: BP 139/64
--- NOTE | 2017-01-15 14:00 | NUR ---
LYING ON LEFT SIDE WITH RESPIRATIONS EVEN AND NON LABORED. CALL LIGHT IN REACH AND FAMILY AT BEDSIDE. WILL CONTINUE WITH PLAN OF CARE.
[2017-01-15 20:00] VITALS: BP 163/80
[2017-01-16 04:13] VITALS: BP 108/60
--- NOTE | 2017-01-16 04:49 | NUR ---
ASSESSED, PT IS ASLEEP WITH NO DISTRESS NOTED AND EASY RESPIRATIONS. THE BED IS LOW, RAILS UP X'S 2 WITH THE CALL LIGHT AT HAND.
[2017-01-16 05:34] LABS: BASOPHILS 0 % (0-2); EOSINOPHILS 1.9 % (0-7); HEMATOCRIT 36.7 % (42.0-54.0); HEMOGLOBIN 12.1 g/dL (13.5-17.5); LYMPHOCYTES 26.7 % (15-50); MCH 31.2 pg (26.0-34.0); MCV 94.6 fL (80.0-100.0); MEAN PLATELET VOLUME 10.7 fL (7.4-10.4); MONOCYTES 13.2 % (2-11); NEUTROPHILS 58.2 % (40-80); PLATELET COUNT 164 10x3/uL (130-400); RBC 3.88 10x6/uL (4.20-6.10); RDW 13.1 % (11.5-14.5); WBC 5.8 10x3/uL (4.8-10.8)
[2017-01-16 05:36] LABS: ANION GAP 11.2 mmol/L (8-16); CALCIUM 8.8 mg/dL (8.5-10.1); CARBON DIOXIDE 26.8 mmol/L (21.0-32.0); CREATININE - SERUM 1.1 mg/dL (0.6-1.3)
--- NOTE | 2017-01-16 07:25 | NUR ---
PATIENT RECEIVED IN RIGHT LATERAL POSITION RESTING QUIETLY. NO SIGNS OF DISTRESS NOTED. DENIES NEEDS. SIDE RAILS UP X2. BED IN LOW POSITION. CALL LIGHT AND IMAGING TECHNICIAN BUTTON IN REACH.
[2017-01-16 08:44] VITALS: BP 123/66
--- NOTE | 2017-01-16 08:45 | NUR ---
PATIENT SITTING UP ON SIDE OF BED ALERT ALERT. NO SIGNS OF DISTRESS NOTED. SCHEDULED MEDICATION ADMINISTERED. BED IN LOW POSITION. CALL LIGHT IN RECAH.
--- NOTE | 2017-01-16 09:50 | NUR ---
PATIENT REPORTS ACCIDENTALLY ARAVIND IV OUT. IV WITH CATH TIP INTACT.
--- NOTE | 2017-01-16 10:30 | NUR ---
ATTEMPTED TO RESITE IV TO LEFT FOREARM X2 FAILED ATTEMPTS. WILL HAVE A DIFFERENT NURSE RESITE IV
--- NOTE | 2017-01-16 11:20 | NUR ---
22 GAUGE SITED TO LEFT WRIST BY YAMILEX CELAYA
--- NOTE | 2017-01-16 13:00 | NUR ---
PATIENT LEFT LATERAL POSITION RESTING QUIETLY WITH EYES CLOSED. RESPIRATIONS EVEN AND UNLABORED. SIDE RAILS UP X2. BED IN LOW POSITION. CALL LIGHT IN REACH.
--- NOTE | 2017-01-16 16:53 | NUR ---
ALERT IN BED WATCHING TV. NO SIGNS OF DISTRESS NOTED. SIDE RAILS UP X2. BED IN LOW POSITION. CALL LIGHT IN REACH.
--- NOTE | 2017-01-16 19:00 | NUR ---
REPORT RECEIVED AND CARE OF PT ASSUMED. PT LYING ON RIGHT SIDE WITH EYES CLOSED AND UNLABORED BREATHING. IV IN LEFT WRIST PATENT WITH D5 1/2 NS INFUSING AT 75 ML / HR. WILL MONITOR [place]OSLEY FOR NEEDS. CALL LIGHT WITHIN REACH.
[2017-01-16 20:00] VITALS: BP 138/60
--- NOTE | 2017-01-16 21:02 | NUR ---
HS MEDICATIONS GIVEN. WILL CONTINUE TO MONITOR FOR NEEDS.
--- NOTE | 2017-01-16 22:29 | NUR ---
PT RESTING QUIETLY AT THIS TIME ON LEFT SIDE WITH EYE CLOSED. WILL CONTINUE TO MONITOR FOR NEEDS.
[2017-01-17] VITALS: BP 167/87
[2017-01-17 05:01] VITALS: BP 127/66
--- NOTE | 2017-01-17 07:40 | NUR ---
A&O, SITTING UP ON THE SIDE OF THE BED, DENIES NEEDS, NO DISTRESS NOTED, CALL LIGHT IN REACH, WILL CONTINUE TO MONITOR
[2017-01-17 08:48] VITALS: BP 143/59
[2017-01-17 10:02] LABS: BASOPHILS 0 % (0-2); EOSINOPHILS 1.6 % (0-7); HEMOGLOBIN 12.3 g/dL (13.5-17.5); IMMATURE GRANULOCYTES 0.2 % (0-5); LYMPHOCYTES 42.7 % (15-50); MCH 31.1 pg (26.0-34.0); MCHC 32.4 g/dL (31.0-37.0); MEAN PLATELET VOLUME 10.3 fL (7.4-10.4); MONOCYTES 12.7 % (2-11); NEUTROPHILS 42.8 % (40-80); PLATELET COUNT 159 10x3/uL (130-400); RBC 3.96 10x6/uL (4.20-6.10); RDW 13.2 % (11.5-14.5); WBC 5.1 10x3/uL (4.8-10.8)
[2017-01-17 10:20] LABS: ALBUMIN 3.1 g/dL (3.4-5.0); ALKALINE PHOSPHATASE 55 U/L (46-116); ALT (SGPT) 15 U/L (10-68); CALC OSMOLALITY 285 mosm/kg (275-300); CALCIUM 8.5 mg/dL (8.5-10.1); CARBON DIOXIDE 30.8 mmol/L (21.0-32.0); CHLORIDE - SERUM 107 mmol/L (98-107); GLUCOSE 94 mg/dL (74-106); POTASSIUM - SERUM 4.1 mmol/L (3.5-5.1); PROTEIN - SERUM 5.8 g/dL (6.4-8.2); SODIUM 142 mmol/L (136-145); UREA NITROGEN 21 mg/dL (7-18); eGFR NON AFRICAN AMERICAN 75 mL/min (90-120)
--- NOTE | 2017-01-17 12:11 | NUR ---
RESTING QUIETLY IN BED AT THIS TIME. REPORTS BEING UPSET BECAUSE MD SAID HE COULD GO HOME AND THEN SAID HE HAD TO STAY TILL TUESDAY. DISCUSSED RATIONALES WITH PATIENT. DENIES NEEDS.
[2017-01-17 12:36] VITALS: BP 145/68
--- NOTE | 2017-01-17 13:29 | NUR ---
Patient Name: COOPER UBCIO Admission Status: Elective Accout number: [id number] Admission Date: 01-14-2017 : 1929 Admission Diagnosis: Attending: ROSA MARIA, Current LOS: 3 Anticipated DC Date: Planned Disposition: Home Primary Insurance: [facility] Discharge Planning Comments: CM met with patient to assess discharge planning needs. Patient stated that he lives independently at home in [facility]. Patient states that his Daughter, Gin will be the one to take him home at discharge. Patient denies any HH needs and does not want any at discharge. He as a cane, walker, and shower chair at home. He states that there are not any stairs at his home. CM will continue to follow and assist with discharge planning needs. PCP: Gillian Bill's Gin Florentino (Daughter) Fork Truck Operator: Kristen Brand * Is the patient Alert and Oriented? Yes 0 * How many steps to enter\exit or inside your home? 0 0 * PCP Gillian 0 * Pharmacy [facility] 0 * Preadmission Environment Home Alone 0 * ADLs Independent 0 * Equipment Cane Shower Chair Walker 0 * List name and contact numbers for known caregivers / representatives who currently or will assist patient after discharge: Gin Florentino (daughter) 0 * Additional services required to return to the preadmission environment? Yes 0 * Can the patient safely return to the preadmission environment? Yes 0 * Has this patient been hospitalized within the prior 30 days at any hospital? No 0 Grand Total: 0
[2017-01-17 15:56] VITALS: BP 107/54
--- NOTE | 2017-01-17 18:38 | NUR ---
IV INFILTRATED ON LW, 20G LEFT FOREARM STARTED WITH BLOOD RETURN
--- NOTE | 2017-01-17 20:00 | NUR ---
ASSESSMENT PER FLOWSHEET. IV PATENT LEFT FOREARM OF D51/2NS INFUSING AT 75CC'S/HR. SITE CLEAR. SR UP X2 CALL LIGHT WITHIN REACH FAMILY MEMBERS IN ROOM. ASSORTER LAUNDRY OF DILAUDID IN USE FOR PAIN CONTROL WIOTH SETTINGS AT 0.2MG Q10MIN W/6MG Q4H L/O. MEDS GIVEN PER JUN.
--- NOTE | 2017-01-17 21:30 | NUR ---
MEDS PER MAR.
[2017-01-17 22:27] VITALS: BP 99/40
--- NOTE | 2017-01-17 23:47 | NUR ---
RESTING QUIETLY DENIES NEEDS. SR UP X2 CALL LIGHT WITHIN REACH.
[2017-01-18] VITALS: BP 105/59
--- NOTE | 2017-01-18 03:57 | NUR ---
EYES CLOSED RESPIRATIONS WITH EASE AND UNLABORED.
[2017-01-18 04:00] VITALS: BP 107/66
--- NOTE | 2017-01-18 05:36 | NUR ---
EYES CLOSED RESPIRATIONS WITH EASE AND UNLABORED.
[2017-01-18 06:17] LABS: BASOPHILS 0.2 % (0-2); EOSINOPHILS 2.2 % (0-7); HEMATOCRIT 35.4 % (42.0-54.0); HEMOGLOBIN 11.7 g/dL (13.5-17.5); IMMATURE GRANULOCYTES 0.2 % (0-5); LYMPHOCYTES 33.5 % (15-50); MCH 31.5 pg (26.0-34.0); MCHC 33.1 g/dL (31.0-37.0); MCV 95.4 fL (80.0-100.0); MEAN PLATELET VOLUME 10.8 fL (7.4-10.4); MONOCYTES 15.5 % (2-11); NEUTROPHILS 48.4 % (40-80); PLATELET COUNT 154 10x3/uL (130-400); RBC 3.71 10x6/uL (4.20-6.10); RDW 13.5 % (11.5-14.5)
[2017-01-18 06:34] LABS: ALBUMIN 2.8 g/dL (3.4-5.0); ALKALINE PHOSPHATASE 60 U/L (46-116); ALT (SGPT) 13 U/L (10-68); CALC OSMOLALITY 284 mosm/kg (275-300); CALCIUM 8.4 mg/dL (8.5-10.1); CARBON DIOXIDE 28.7 mmol/L (21.0-32.0); CHLORIDE - SERUM 108 mmol/L (98-107); GLUCOSE 97 mg/dL (74-106); POTASSIUM - SERUM 4.2 mmol/L (3.5-5.1); PROTEIN - SERUM 5.1 g/dL (6.4-8.2); SODIUM 141 mmol/L (136-145); UREA NITROGEN 25 mg/dL (7-18); eGFR NON AFRICAN AMERICAN 75 mL/min (90-120)
--- NOTE | 2017-01-18 07:30 | NUR ---
RECIEVED PT DURING WALKING ROUNDS. PT RESTING IN BED WITH NO COMPLAINTS OF PAIN OR DISCOMFORT AT THIS TIME. ASSESSMENT DONE PER FLOWSHEET. BED IN LOW POSITION AND CALL LIGHT WITHIN REACH. WILL CONTINUE TO MONITOR.
[2017-01-18 08:05] VITALS: BP 127/56
--- NOTE | 2017-01-18 10:05 | NUR ---
PT UP WALKING AROUND UNIT AT THIS TIME. NO VISABLE SIGNS OF PAIN OR DISCOMFORT AT THIS TIME. BED IN LOW POSITION AND CALL LIGHT WITHIN REACH. WILL CONTINUE TO MONITOR.
[2017-01-18 12:28] VITALS: BP 119/61
[2017-01-18 15:46] VITALS: BP 113/63
[2017-01-18 20:00] VITALS: BP 122/66
--- NOTE | 2017-01-18 20:00 | NUR ---
ASSESSMENT PER FLOWSHEET. IV PATENT LEFT WRIST OF D51/2NS AT 75CC'S/HR. DIGITAL MARKETER OF DILAUDID IN USE WITH SETTINGS AT 0.2MG Q10MIN W/6MG Q4H L/O. SITE CLEAR. VISITING WITH RELATIVES. DENIES NEEDS SR UP X2 CALL LIGHT WITHIN REACH.
--- NOTE | 2017-01-18 21:15 | NUR ---
MEDS GIVEN PER MAR.
--- NOTE | 2017-01-18 22:34 | NUR ---
EYES CLOSED RESPIRATIONS WITH EASE AND UNLABORED.
[2017-01-19] VITALS: BP 128/58
--- NOTE | 2017-01-19 | NUR ---
EYES CLOSED REPIRATIONS WITH EASE AND UNLABORED.
--- NOTE | 2017-01-19 02:20 | NUR ---
EYES CLOSED RESPIRATIONS WITH EASE AND UNLABORED. SR UPX2 CALL LIGHT WITHIN REACH.
[2017-01-19 04:00] VITALS: BP 142/68
--- NOTE | 2017-01-19 04:00 | NUR ---
RESTING QUIETLY. DENIES NEEDS.
[2017-01-19 05:56] LABS: BASOPHILS 0.2 % (0-2); IMMATURE GRANULOCYTES 0.2 % (0-5); LYMPHOCYTES 29.8 % (15-50); MCH 31.7 pg (26.0-34.0); MCHC 33.3 g/dL (31.0-37.0); MEAN PLATELET VOLUME 10.7 fL (7.4-10.4); MONOCYTES 11.5 % (2-11); NEUTROPHILS 56.3 % (40-80); PLATELET COUNT 125 10x3/uL (130-400); RBC 3.79 10x6/uL (4.20-6.10); RDW 13.5 % (11.5-14.5)
--- NOTE | 2017-01-19 06:40 | NUR ---
MEDS GIVEN PER MAR.
[2017-01-19 06:56] LABS: ALKALINE PHOSPHATASE 55 U/L (46-116); ALT (SGPT) 14 U/L (10-68); CALC OSMOLALITY 284 mosm/kg (275-300); CALCIUM 8.6 mg/dL (8.5-10.1); CARBON DIOXIDE 28.7 mmol/L (21.0-32.0); CHLORIDE - SERUM 108 mmol/L (98-107); CREATININE - SERUM 0.9 mg/dL (0.6-1.3); GLUCOSE 105 mg/dL (74-106); POTASSIUM - SERUM 4.3 mmol/L (3.5-5.1); PROTEIN - SERUM 5.3 g/dL (6.4-8.2); SODIUM 141 mmol/L (136-145); UREA NITROGEN 25 mg/dL (7-18); eGFR NON AFRICAN AMERICAN 85 mL/min (90-120)
--- NOTE | 2017-01-19 07:30 | NUR ---
RECIEVED PT DURING WALKING ROUNDS. PT RESTING IN BED WITH COMPLAINTS OF BACK PAIN OF A 5 ON A SCALE OF 1-10. BAKER SECOND IN USE. ASSESSMENT DONE PER FLOWSHEET. BED IN LOW POSITION AND CALL LIGHT WITHIN REACH. WILL CONTINUE TO MONITOR.
[2017-01-19 07:50] VITALS: BP 161/72
[2017-01-19 12:11] VITALS: BP 119/54
--- NOTE | 2017-01-19 15:00 | NUR ---
NUTRITION F/U CHART REVIEWED. PT VISIT. TOLERATING REG DIET WITH 100% INTAKE RECENT MEALS. CONTINUES TO BE ASSESSED AT LOW NUTRITIONAL RISK. RD FOLLOWING
[2017-01-19 15:48] VITALS: BP 169/71
[2017-01-19 20:00] VITALS: BP 142/68
--- NOTE | 2017-01-19 20:00 | NUR ---
ASSESSMENT PER FLOWSHEET. IV PATENT LEFT ARM OF D51/2NS AT 75CC'S/HR CANDY STARCH MOLD PRINTER OF DILAUDID IN USE WITH SETTINGS AT 0.2MG Q10MIN W/6MG Q4H L/O VISISTS WITH FAMILY MEMBERS DENIES NEEDS. SR UP X2 CALL LIGHT WITHIN REACH.
--- NOTE | 2017-01-19 21:30 | NUR ---
MEDS GIVEN PER MAR. DENIES NEEDS
[2017-01-20] VITALS (12 sets, daily range): BP systolic 100–191; BP diastolic 42–109
--- NOTE | 2017-01-20 | NUR ---
EYES CLOSED RESPIRATIONS WITH EASE AND UNLABORED NPO FOR SURGERY IN AM.
--- NOTE | 2017-01-20 03:00 | NUR ---
EYES CLOSED RESPIRATIONS WITH EASE AND UNLABORED.
--- NOTE | 2017-01-20 05:09 | NUR ---
RESTING QUIETLY DENIES NEEDS.
[2017-01-20 05:15] LABS: BASOPHILS 0.2 % (0-2); EOSINOPHILS 2.2 % (0-7); HEMATOCRIT 36.9 % (42.0-54.0); HEMOGLOBIN 12.2 g/dL (13.5-17.5); IMMATURE GRANULOCYTES 0.2 % (0-5); LYMPHOCYTES 27.6 % (15-50); MCH 31.7 pg (26.0-34.0); MCHC 33.1 g/dL (31.0-37.0); MCV 95.8 fL (80.0-100.0); MEAN PLATELET VOLUME 10.7 fL (7.4-10.4); NEUTROPHILS 54.8 % (40-80); PLATELET COUNT 135 10x3/uL (130-400); RBC 3.85 10x6/uL (4.20-6.10); RDW 13.3 % (11.5-14.5); WBC 6.4 10x3/uL (4.8-10.8)
[2017-01-20 05:42] LABS: ALBUMIN 2.9 g/dL (3.4-5.0); ALKALINE PHOSPHATASE 64 U/L (46-116); ALT (SGPT) 14 U/L (10-68); CALC OSMOLALITY 286 mosm/kg (275-300); CALCIUM 8.6 mg/dL (8.5-10.1); CHLORIDE - SERUM 107 mmol/L (98-107); CREATININE - SERUM 0.9 mg/dL (0.6-1.3); GLUCOSE 98 mg/dL (74-106); PROTEIN - SERUM 5.6 g/dL (6.4-8.2); SODIUM 142 mmol/L (136-145); UREA NITROGEN 23 mg/dL (7-18); eGFR NON AFRICAN AMERICAN 85 mL/min (90-120)
--- NOTE | 2017-01-20 07:10 | NUR ---
PATIENT RECEIVED IN LEFT LATERAL POSITION RESTING QUIETLY. RESPIRATIONS EVEN AND UNLABORED. SIDE RAILS UP X2. BED IN LOW POSITION. CALL LIGHT IN REACH.
--- NOTE | 2017-01-20 08:25 | NUR ---
PATIENT UP TO RESTROOM WITHOUT ASSIST. DENIES NEEDS.
--- NOTE | 2017-01-20 09:10 | HP ---
PATIENT: COOPER ALARCON MEDICAL RECORD: [id number] ACCOUNT: [id number] LOCATION:D.MS [id number] : 29 ADMISSION DATE: 01/14/17 HISTORY AND PHYSICAL EXAMINATION HISTORY: Mr. Alarcon is an 86-year-old white male with history of recurrent UTIs. Earlier this year, he had a kidney stone that was causing recurrent infections. He had it manipulated and he subsequently developed sepsis. He recovered and has done well. He started having infections again here recently. A repeat CT was performed, showed a residual stone in the bladder that was resting in a bladder diverticulum. He has had recurrent infection since then. He has an upcoming appointment scheduled with urology with Dr. Cano, but it is not for another week or so. He started having symptoms again this week. A culture was performed, which comes back today showing Pseudomonas with multidrug resistance. It is only sensitive to meropenem, tobramycin, and amikacin. I spoke with Dr. Baltazar, who gave recommendations. He is going to need to be admitted for infection and get in the stone cooled off and a urology consult. PAST MEDICAL HISTORY: Significant for intermittent atrial fibrillation; CHF, which is stable; hypertension; thoracic aneurysm, which was noted on 09/01; pulmonary embolism that developed after his last hospitalization on 09/01; and gastric reflux. PAST SURGICAL HISTORY: His surgeries include laparoscopic cholecystectomy, prostate surgery, cystoscopy in 2007 and then again in 2016, surgery to remove kidney stone in 1959, and cardioversion in February of 2012. He has had a heart cath in May of 2011. ALLERGIES: None known. HOME MEDICATIONS: Lisinopril 10 mg a day, Flomax 0.4 daily, baclofen 10 mg t.i.d., famotidine 20 mg b.i.d., Xarelto 20 mg a day, Carafate two teaspoons a.c. and at bedtime, Zofran 4 mg b.i.d. for nausea and vomiting, Amitiza 24 ____ b.i.d., benzonatate 100 mg t.i.d., finasteride 5 mg one at bedtime, meclizine 25 t.i.d. p.r.n. dizziness, omeprazole 20 mg b.i.d., diltiazem 120 b.i.d., Rythmol 150 mg twice a day, milk of mag, and MiraLAX p.r.n. FAMILY HISTORY: Noncontributory. SOCIAL HISTORY: The patient does not smoke or drink. REVIEW OF SYSTEMS: He has had increasing worsening back pain. He has had some nausea and vomiting. No chest pain. No shortness of breath. PHYSICAL EXAMINATION: GENERAL: Appears without any distress at this time. HEENT: Negative. HEART: Regular. LUNGS: Clear. ABDOMEN: Soft. NEUROLOGIC: Gait is stooped. IMPRESSION: Multiresistant UTI secondary to Pseudomonas with a bladder stone; intermittent atrial fibrillation; history of recent PE; CHF, stable; hypertension; thoracic aneurysm; and GERD. HISTORY AND PHYSICAL [id number] COOPER ALARCON PLAN: Admit. Meropenem 500 q. 8. Discussed with ID. Urology consult. See orders for plan. TRANSINT:[id number] Voice Confirmation ID: [id number] DOCUMENT ID: [id number] LUPE FERNÁNDEZ DO at 0910 CC: [id number] DICTATION DATE: 01/14/17 1536 ADMISSION NURSE: 01/14/17 1829 ADM IN [facility] [address] [place] [address]
--- NOTE | 2017-01-20 11:03 | NUR ---
ALERT IN BED WITH FAMILY PRESENT. NO SIGNS OF DISTRESS NOTED. DENIES NEEDS. SIDE RAILS UP X2. BED IN LOW POSITION. CALL LIGHT IN REACH.
--- NOTE | 2017-01-20 13:10 | NUR ---
PATIENT OFF FLOOR TO SURGERY VIA BED.
--- NOTE | 2017-01-20 15:45 | NUR ---
PATIENT BACK TO ROOM FROM PACU. A/O X4. VITAL SIGNS STABLE. FAMILY PRESENT. SIDE RAILS UP X2. BED IN LOW POSITION. CALL LIGHT IN REACH.
--- NOTE | 2017-01-20 17:15 | NUR ---
ALERT IN BED. NO SIGNS OF DISTRESS NOTED. FAMILY PRESENT. VITAL SIGNS STABLE. SIDE RAILS UP X2. BED IN LOW POSITION. CALL LIGHT IN REACH.
[2017-01-21] VITALS: BP 130/68
[2017-01-21 04:00] VITALS: BP 137/75
[2017-01-21 05:49] LABS: BASOPHILS 0.1 % (0-2); EOSINOPHILS 1.2 % (0-7); HEMATOCRIT 35.7 % (42.0-54.0); HEMOGLOBIN 12.4 g/dL (13.5-17.5); IMMATURE GRANULOCYTES 0.1 % (0-5); LYMPHOCYTES 26.9 % (15-50); MCH 32.5 pg (26.0-34.0); MCHC 34.7 g/dL (31.0-37.0); MEAN PLATELET VOLUME 11.2 fL (7.4-10.4); MONOCYTES 13.1 % (2-11); NEUTROPHILS 58.6 % (40-80); PLATELET COUNT 120 10x3/uL (130-400); RBC 3.81 10x6/uL (4.20-6.10); RDW 13.1 % (11.5-14.5); WBC 6.9 10x3/uL (4.8-10.8)
--- NOTE | 2017-01-21 06:00 | NUR ---
D/C GODWIN CATHETER. REMOVED SCDS PER PATIENT REQUEST TO SIT UP ON THE SIDE OF THE BED. PATIENT INDEPENDENTLY SAT UP ON THE SIDE OF THE BED. HE DEMONSTRATED AMBULATING, GAIT STEADY. MADE PATIENT A CUP OF COFFEE. HE DENIES FURTHER NEEDS AT THIS TIME. BED IN LOWEST POSITION, CALL LIGHT IN REACH.
[2017-01-21 06:08] LABS: MCV 93.7 fL (80.0-100.0)
[2017-01-21 06:18] LABS: ALBUMIN 2.7 g/dL (3.4-5.0); ALKALINE PHOSPHATASE 56 U/L (46-116); ALT (SGPT) 12 U/L (10-68); BILIRUBIN - TOTAL 1.25 mg/dL (0.2-1.3); CALCIUM 8.3 mg/dL (8.5-10.1); CARBON DIOXIDE 26.5 mmol/L (21.0-32.0); CHLORIDE - SERUM 104 mmol/L (98-107); CREATININE - SERUM 0.8 mg/dL (0.6-1.3); GLUCOSE 91 mg/dL (74-106); PROTEIN - SERUM 5.6 g/dL (6.4-8.2); SODIUM 138 mmol/L (136-145); eGFR NON AFRICAN AMERICAN > 90 mL/min (90-120)
[2017-01-21 06:21] LABS: CALC OSMOLALITY 276 mosm/kg (275-300); UREA NITROGEN 16 mg/dL (7-18)
--- NOTE | 2017-01-21 07:25 | NUR ---
PATIENT RECEIVED IN LEFT LATERAL POSITION RESTING QUIETLY. NO SIGNS OF DISTRESS NOTED. SIDE RAILS UP X2. BED IN LOW POSITION. CALL LIGHT IN REACH. DENIES NEEDS.
--- NOTE | 2017-01-21 08:10 | NUR ---
PATIENT SITTING UP ON SIDE OF BED EATING BREAKFAST. TOLERATING WELL. SCHEDULED MEDICATION ADMINISTERED. DENIES NEEDS. BED IN LOW POSITION. CALL LIGHT IN REACH.
[2017-01-21 08:20] VITALS: BP 141/63
[2017-01-21] MEDS ORDERED: COLACE100 MG PO (10:06)
[2017-01-21] MEDS ORDERED: CARAFATE1 G/10 ML PO (10:07)
--- NOTE | 2017-01-21 10:30 | NUR ---
PATIENT UP AMBULATING IN HALLWAY WITHOUT ASSIST. NO SIGNS OF DISTRESS NOTED.
--- NOTE | 2017-01-21 10:45 | NUR ---
IV TO LEFT FOREARM D/C WITH CATH TIP INTACT. SITE COVERED WITH GAUZE AND BANDAID.
--- NOTE | 2017-01-21 10:50 | NUR ---
Patient is discharging home today with his daughter to drive home. He is still refusing home health after speaking with him again. Imm served. CM will follow as needed
--- NOTE | 2017-01-21 11:15 | NUR ---
D/C TEACHING PROVIDED TO PATIENT. STATES UNDERSTANDING. DENIES QUESTIONS.
--- NOTE | 2017-01-21 11:20 | NUR ---
PATIENT D/C HOME WITH FAMILY. TRANSFERRED DOWNSTAIRS VIA WHEELCHAIR WITH VOLUNTEERS.
--- NOTE | 2017-01-25 09:42 | OP ---
PATIENT NAME: COOPER BUCIO MEDICAL RECORD: [id number] :29 LOCATION:D.MS [id number] ADMISSION DATE:01/14/17 SURGEON: YAAKOV AHUMADA MD DATE OF OPERATION: 01/20/2017 SURGEON: Yaakov Ahumada MD ANESTHESIA: General anesthesia by Lisa Ho CRNA PREOPERATIVE DIAGNOSES: Recurrent urinary tract infections, obstructive BPH, and possible bladder stone. PROCEDURES: Cystoscopy. GreenLight laser transurethral resection of the prostate, power 80 garza, total energy 38,207 joules, laser on time 8 minutes 13 seconds. FINDINGS: Obstructive BPH. Previous TURP of bladder neck and left lateral lobe. Heavily trabeculated bladder. No bladder stones seen. Single ureteral orifices bilaterally. No bladder tumors. BLOOD LOSS: None. CLINICAL HISTORY: This is an 86-year-old male who has a long history of recurrent UTIs with pseudomonas. Earlier this year, I noted that he had a large stone in his right kidney, which may have been infected and we removed the stone entirely via percutaneous nephrolithotomy. He is again in the hospital with pseudomonas UTI. CT scan imaging shows 2 possible calcifications in the bladder, about 1 cm in size; and a very large prostate with prostatic stones. He comes now to have the prostate resected with the GreenLight laser. Also, we will try to remove bladder stones at the same time. Since he is already on IV antibiotics on the floor for his pseudomonas UTI, we did not give him any further antibiotics. DESCRIPTION OF PROCEDURE: The patient was given induction of general anesthesia. He was placed in the dorsal lithotomy position and prepped and draped. We used a 23-Montserratian laser resectoscope. The patient could not accommodate the laser resectoscope, so I used male sounds to dilate the urethral meatus to 26-Montserratian. The scope then went in without any problems. There were no strictures in the urethra. The prostate showed bilateral lateral lobe obstruction. The right lobe was especially prominent and seemed to have never been resected before. The left lobe showed signs of previous resection. The bladder neck showed signs of previous resection. The ureteral orifices were single on each side. They were located quite a distance away from the bladder neck. Looking into the bladder, there were no bladder tumors seen. The bladder was heavily trabeculated with diverticuli. On looking throughout the bladder surfaces, especially on the right side where the CT reported stones, I did not see any stones. We then introduced the laser fiber. Our resection with the laser was kept at 80 garza. We went from the bladder neck to just proximal to the verumontanum. The patient's prostatic tissue responded very well to the laser energy and we did not have to go up on the power level at all. I first reduced the remnant of the left lateral lobe. The right lateral lobe was then reduced completely down to the pseudocapsule. We could identify the plane by the unroofing of his multiple bladder stones. At the end of the procedure, there was a good channel visible from the external urinary sphincter all the way through to the bladder neck. There was no arterial or venous bleeding at all. OPERATIVE REPORT [id number] COOPER BUCIO The verumontanum was still intact. Going into the bladder, the ureteral orifices were still intact. Even with the bladder completely deflated and looking at the ozuna, we could not identify any bladder stones. The scope was then removed. A 22-Montserratian 2-way Robison catheter was introduced into the bladder. It was inflated with 20 cc of sterile water. It was then put to bag drainage. The Robison catheter can be removed tomorrow morning if the drainage is clear. He can then be discharged home. TRANSINT:[id number] Voice Confirmation ID: [id number] DOCUMENT ID: [id number] YAAKOV AHUMADA MD at 0942 CC: [id number] DICTATION DATE: 01/20/17 151 GLASS FURNACE TENDER: 01/20/172009 DIS IN 01/21/[address] [facility] [address] [place] [address]
--- NOTE | 2017-02-03 19:03 | DS ---
PATIENT:COOPER BUCIO :28 MEDICAL RECORD: [id number] DISCHARGE SUMMARY ADMISSION DATE: 01/14/17 DISCHARGE DATE: 01/21/17 DATE OF ADMISSION: 01/14/2017 DATE OF DISCHARGE: 01/21/2017 DIAGNOSES: 1. Obstructive BPH. 2. Recurrent urinary tract infection. 3. Gastroesophageal reflux disease. 4. Hypertension. 5. Atrial fibrillation. PROCEDURES: Cystoscopy, which showed obstructive BPH, no bladder stones were seen. CONSULTS: Yaakov Cano MD HOSPITAL COURSE: Full H&P is listed elsewhere in the chart. This 86-year-old male with a known history of BPH and recurrent UTIs, who was admitted with symptomatic urinary tract infection. Recent cultures showed multidrug-resistant pseudomonas, and he was admitted for IV antibiotic therapy with meropenem. Urology was consulted. He underwent a cystoscopy. He did not have any stones. He was placed on Flomax and Proscar. A Robsion was in place. He responded well to the antibiotic therapy. Catheter was removed. He ambulated in the halls. His antibiotics were deescalated and he was thought to be stable to discharge to home to follow up in the outpatient setting with house call. See med rec. TRANSINT:[id number] Voice Confirmation ID: [id number] DOCUMENT ID: [id number] Dictated By: MALISSA MONREAL I have interviewed/examined the above patient and agree with these documented findings. REGINE CRANE MD at 1903 at 1553 CC: [id number] DICTATION DATE: 02/02/17 1633 CLERICAL OFFICE: 02/03/17 1120 DIS IN 01/21/17 [facility] [address] [place] [id number]
[2017-04-18] MEDS ORDERED: OMEPRAZOLE40 MG PO (19:26)
[2017-04-18] MEDS ORDERED: ISOSORBIDE MONO30 M1 PO (19:54)
[2017-04-22] MEDS ORDERED: CARDIZEM CD360 MG PO (15:22)
[2017-04-22] MEDS ORDERED: ENULOSE10 G/15 ML PO (15:29)
[2017-04-22] MEDS ORDERED: ZOFRAN4 MG PO (15:30)
[2017-04-22] MEDS ORDERED: FLOMAX0.4 MG PO (15:30)
[2017-04-22] MEDS ORDERED: EMBEDA (15:33)
[2017-04-22] MEDS ORDERED: CARAFATE1 G/10 ML PO (15:33)
[2017-04-22] MEDS ORDERED: PROSCAR5 MG PO (15:34)
[2017-04-22] MEDS ORDERED: AMITIZA24 MCG PO (15:34)
[2017-04-22] MEDS ORDERED: LIDOCAINE 5 % O35 GM TOPICAL (15:36)
[2017-04-22] MEDS ORDERED: MECLIZINE HCL25 MG PO (15:37)
[2017-04-22] MEDS ORDERED: MIRALAX17 GM PO (15:38)
[2017-04-22] MEDS ORDERED: MILK OF MAGNESI30 ML PO (15:38)
[2017-04-22] MEDS ORDERED: XARELTO15 MG PO (15:39)
== END 2017-01-21 11:23 | disposition home or self-care (01) | DRG 666 ==
LOC: D.MS 18:00
PROVIDERS: Family Medicine; Urology; ADMIT Family Medicine
PROC: 0V508ZZ Destruction of Prostate, Via Natural or Artificial Opening Endoscopic (ICD-10-PCS; principal; 2017-01-20 11:00)
DX: N21.0 Calculus in bladder (principal); N13.8 Other obstructive and reflux uropathy; N39.0 Urinary tract infection, site not specified; I50.22 Chronic systolic (congestive) heart failure; I11.0 Hypertensive heart disease with heart failure; I48.0 Paroxysmal atrial fibrillation; N40.1 Benign prostatic hyperplasia with lower urinary tract symptoms; K59.00 Constipation, unspecified; G47.00 Insomnia, unspecified; Z87.891 Personal history of nicotine dependence; K21.9 Gastro-esophageal reflux disease without esophagitis; B96.5 Pseudomonas (aeruginosa) (mallei) (pseudomallei) as the cause of diseases classified elsewhere

== ENCOUNTER 2017-02-13 16:12 | Inpatient (IN) | payer MEDICARE, MEDICAID ==
[~2017-02-13] VITALS: Ht 177.8 cm; Wt 91.8 kg
[~2017-02-13 16:12] MED LIST changes: +CARAFATE1 G/10 ML PO; +COLACE100 MG PO
[2017-02-13 16:59] LABS: APPEARANCE TURBID (CLEAR); BILIRUBIN NEGATIVE (NEGATIVE); COLOR YELLOW (YELLOW); GLUCOSE NEGATIVE (NEGATIVE); KETONE NEGATIVE (NEGATIVE); NITRITE NEGATIVE (NEGATIVE); PH 5.5 (5.0-6.0); PROTEIN 2+ mg/dL (NEGATIVE); UROBILINOGEN NORMAL (NORMAL)
[2017-02-13 17:01] LABS: AMORPHOUS SEDIMENT >1+ /lpf (NONE SEEN); BACTERIA MANY /hpf (NONE SEEN); EPITHELIAL CELLS 0-5 /hpf (0-5); GRANULAR CAST 0-5 /lpf (NONE SEEN); RED CELLS - URINE >50 /hpf (0-5); WHITE CELLS - URINE >50 /hpf (0-5)
[2017-02-13 18:14] LABS: BASOPHILS 0.1 % (0-2); EOSINOPHILS 1.3 % (0-7); HEMATOCRIT 39.1 % (42.0-54.0); HEMOGLOBIN 12.8 g/dL (13.5-17.5); IMMATURE GRANULOCYTES 0.3 % (0-5); LYMPHOCYTES 31.1 % (15-50); MCH 31.8 pg (26.0-34.0); MCHC 32.7 g/dL (31.0-37.0); MCV 97.3 fL (80.0-100.0); MEAN PLATELET VOLUME 10.8 fL (7.4-10.4); MONOCYTES 10.7 % (2-11); NEUTROPHILS 56.5 % (40-80); RBC 4.02 10x6/uL (4.20-6.10); RDW 13.7 % (11.5-14.5); WBC 7.1 10x3/uL (4.8-10.8)
[2017-02-13 18:18] LABS: PLATELET COUNT 173 10x3/uL (130-400)
[2017-02-13 18:28] LABS: INR 1.49 (0.85-1.17); PROTIME 17.9 SECONDS (11.6-15.0)
[2017-02-13 18:35] LABS: ALBUMIN 3.5 g/dL (3.4-5.0); ALKALINE PHOSPHATASE 81 U/L (46-116); ALT (SGPT) 19 U/L (10-68); BILIRUBIN - TOTAL 0.81 mg/dL (0.2-1.3); CALC OSMOLALITY 282 mosm/kg (275-300); CALCIUM 9.1 mg/dL (8.5-10.1); CARBON DIOXIDE 27.5 mmol/L (21.0-32.0); CHLORIDE - SERUM 103 mmol/L (98-107); GLUCOSE 92 mg/dL (74-106); POTASSIUM - SERUM 4.2 mmol/L (3.5-5.1); SODIUM 138 mmol/L (136-145); UREA NITROGEN 31 mg/dL (7-18); eGFR NON AFRICAN AMERICAN 75 mL/min (90-120)
--- NOTE | 2017-02-13 18:38 | NUR ---
RECEIVED PATIENT TO ROOM 2224 VIA WHEELCHAIR FROM THE EMERGENCY ROOM. PATIENT IS AWAKE, ALERT, AND ORIENTED X4. DAUGHTER WITH PATIENT. PATIENT IN STREET CLOTHES. PATIENT PROVIDED A HOSPITAL GOWN TO CHANGE INTO. ORIENTED PATIENT TO ROOM AND CALL LIGHT.
[2017-02-13 18:42] LABS: MAGNESIUM - SERUM 2.8 mg/dL (1.8-2.4); PRO BNP 455 pg/mL (0-450)
[2017-02-13 20:00] VITALS: BP 136/70
[2017-02-13] MEDS ORDERED: BACLOFEN10 MG PO (20:02)
[2017-02-13] MEDS ORDERED: XARELTO20 MG PO (20:02)
[2017-02-13] MEDS ORDERED: PEPCID AC20 MG PO (20:03)
--- NOTE | 2017-02-13 20:15 | NUR ---
GAVE MORPHINE 4 MG IVP PER PT REQUEST FOR PAIN IN LOWER BACK, PER PRN ORDER. WILL MONITOR FOR EFFECTIVENESS.
[2017-02-13 20:21] VITALS: BP 136/70; Ht 177.8 cm; Wt 91.8 kg
--- NOTE | 2017-02-13 20:34 | NUR ---
ADMIT ASSESSMENT AND HISTORY COMPLETED. GAVE MORPHINE 4 MG IVP PER PT REQUEST FOR PAIN IN LOWER BACK. WILL MONITOR FOR EFFECTIVENESS.
--- NOTE | 2017-02-13 22:00 | NUR ---
PT RESTING QUIETLY ON RIGHT SIDE WITH EYES CLOSED AND EASY RESPIRATIONS. SIDE RAILS UP X2 FOR SAFETY.
[2017-02-14] VITALS (7 sets, daily range): BP systolic 95–149; BP diastolic 48–73
--- NOTE | 2017-02-14 00:20 | NUR ---
GAVE MORPHINE 4 MG IVP PER PT REQUEST FOR PAIN IN LOWER BACK, PER PRN ORDER. WILL MONITOR FOR EFFECTIVENESS. SIDE RAILS UP X2 FOR SAFETY.
--- NOTE | 2017-02-14 01:10 | NUR ---
PT RESTING QUIETLY ON LEFT SIDE WITH EYES CLOSED AND EASY RESPIRATIONS. WILL CONTINUE TO MONITOR FOR NEEDS.
--- NOTE | 2017-02-14 05:05 | NUR ---
PT REQUESTING PAIN MEDICATION FOR PAIN AT LEVEL 8/10 IN LOWER BACK. GAVE MORPHINE 4 MG IVP PER PRN ORDER. SIDE RAILS UP X2 FOR SAFETY.
--- NOTE | 2017-02-14 05:27 | NUR ---
PT C/O NAUSEA. GAVE ZOFRAN 4 MG IVP PER PRN ORDER. WILL CONTINUE TO MONITOR FOR NEEDS. CALL LIGHT WITHIN REACH.
--- NOTE | 2017-02-14 07:10 | NUR ---
REPORT RECEIVED FROM DRYER FEEDER NURSE. CALL LIGHT IN REACH.
--- NOTE | 2017-02-14 07:55 | NUR ---
PATIENT IN BED WITH EYES CLOSED RESTING QUIETLY. LAYING ON SIDE WITH NO COMPLAINTS OR SIGNS OF DISTRESS. CALL LIGHT WITHIN REACH.
--- NOTE | 2017-02-14 08:34 | NUR ---
ASSESSMENT COMPLETED. REQUESTING PAIN MEDS. CALL LIGHT IN REACH. WILL CONTINUE WITH PLAN OF CARE.
--- NOTE | 2017-02-14 09:17 | NUR ---
MORPHINE 4 MG SIVP PER C/O CHRONIC BACK PAIN OF 6 THAT IS INCREASING. HIS NIECE IS IN ROOM AND ASKING IF WE CAN GO AHEAD AND CALL THE MD TO SEE IF WE CAN GIVE HIM SOMETHING DIFFERENT BECAUSE IT DOES NOT WORK.
--- NOTE | 2017-02-14 09:23 | NUR ---
SPOKE WITH LESLYE SPARKS, ABOUT REQUESTS. NEW ORDERS RECEIVED. ALSO INFORMED HER THAT WE ARE OUT OF TELEMETRY AT THIS TIME.
--- NOTE | 2017-02-14 09:34 | NUR ---
DILAUDID 0.5 MG SIVP PER C/O PAIN OF 9 TO BACK. REFUSES SCDs AT THIS TIME. CALL LIGHT IN REACH.
[2017-02-14 09:49] LABS: BASOPHILS 0.2 % (0-2); EOSINOPHILS 1.8 % (0-7); HEMATOCRIT 38.1 % (42.0-54.0); HEMOGLOBIN 12.4 g/dL (13.5-17.5); IMMATURE GRANULOCYTES 0.2 % (0-5); LYMPHOCYTES 40.3 % (15-50); MCHC 32.5 g/dL (31.0-37.0); MCV 98.2 fL (80.0-100.0); MEAN PLATELET VOLUME 10.4 fL (7.4-10.4); MONOCYTES 9.3 % (2-11); NEUTROPHILS 48.2 % (40-80); PLATELET COUNT 148 10x3/uL (130-400); RBC 3.88 10x6/uL (4.20-6.10); RDW 13.4 % (11.5-14.5)
--- NOTE | 2017-02-14 09:52 | NUR ---
STATES PAIN IS STILL AT AN 8. SPOKE WITH LESLYE SPARKS. NEW ORDERS RECEIVED.
[2017-02-14 10:02] LABS: WBC 4.5 10x3/uL (4.8-10.8)
--- NOTE | 2017-02-14 10:02 | NUR ---
2ND DOSE OF DILAUDID 0.5 MG SIVP.
[2017-02-14 10:10] LABS: ALKALINE PHOSPHATASE 74 U/L (46-116); ALT (SGPT) 16 U/L (10-68); BILIRUBIN - TOTAL 0.87 mg/dL (0.2-1.3); CALCIUM 8.5 mg/dL (8.5-10.1); CHLORIDE - SERUM 102 mmol/L (98-107); GLUCOSE 134 mg/dL (74-106); PROTEIN - SERUM 6.3 g/dL (6.4-8.2); SODIUM 136 mmol/L (136-145); eGFR NON AFRICAN AMERICAN 75 mL/min (90-120)
[2017-02-14 10:12] LABS: CALC OSMOLALITY 277 mosm/kg (275-300); CARBON DIOXIDE 29.7 mmol/L (21.0-32.0); UREA NITROGEN 23 mg/dL (7-18)
--- NOTE | 2017-02-14 10:26 | NUR ---
DILAUDID EMERGENCY MEDICAL TECHNICIAN/DRIVER INITIATED PER MD ORDERS.
--- NOTE | 2017-02-14 11:10 | NUR ---
URINAL GIVEN TO PATIENT FOR MEASUREMENT OF OUTPUT. ALSO GAVE HIM AN INCENTIVE SPIROMETER AND EXPLAINED USE. VERBALIZED UNDERSTANDING. WILL GET HIS WEIGHT NEXT TIME HE STANDS.
--- NOTE | 2017-02-14 12:18 | NUR ---
TO RADIOLOGY VIA .
--- NOTE | 2017-02-14 12:37 | NUR ---
BACK IN ROOM AT THIS TIME. ORAL MEDS ADMINISTERED. SITTING IN CHAIR. CALL LIGHT IN REACH.
--- NOTE | 2017-02-14 14:25 | NUR ---
RHYTHMOL PO PER ORDER. STATES A PAIN OF 6. NURSERY LABORER IN USE. CALL LIGHT IN REACH.
--- NOTE | 2017-02-14 16:20 | NUR ---
RESTING WITH EYES CLOSED. RESP EVEN AND UNLABORED. CALL LIGHT IN REACH.
--- NOTE | 2017-02-14 17:28 | NUR ---
XARELTO AND CARAFATE PO. ROCEPHIN IVPB. CALL LIGHT IN REACH.
--- NOTE | 2017-02-14 18:02 | NUR ---
OT NOTE: PT COMPLETED BED MOB WITH SPV. PT COMPLETED BUE AROM EXS FOR INCREASED I WITH ADLS. PT COMPLETED SIMPLE HYGIENE TASK WITH SET UP. THANK YOU, AN PIERCE
--- NOTE | 2017-02-14 18:08 | NUR ---
NO CHANGES IN INITIAL ASSESSMENT. STILL REFUSES SCDs. CALL LIGHT IN REACH. WILL CONTINUE WITH PLAN OF CARE.
--- NOTE | 2017-02-14 19:20 | NUR ---
PT RESTING QUIETLY WITH EYES CLOSED, RESPIRATIONS EQUAL AND UNLABORED. NO DISTRESS NOTED AT THIS TIME. NO SCD'S, BED ALARM ON. IV LEFT HAND PATENT NS @ 50, COMBINATION PRESSER DILAUDID IN USE FOR PAIN CONTROL WITH SETTINGS 0.2/01/19. CALL LIGHT IN REACH, WILL CONTINUE TO MONITOR.
[2017-02-15 04:00] VITALS: BP 106/50
[2017-02-15 05:40] LABS: BASOPHILS 0.2 % (0-2); EOSINOPHILS 1.9 % (0-7); HEMATOCRIT 36.5 % (42.0-54.0); HEMOGLOBIN 11.9 g/dL (13.5-17.5); IMMATURE GRANULOCYTES 0.2 % (0-5); LYMPHOCYTES 34.3 % (15-50); MCH 31.6 pg (26.0-34.0); MCHC 32.6 g/dL (31.0-37.0); MCV 96.8 fL (80.0-100.0); MEAN PLATELET VOLUME 10.2 fL (7.4-10.4); NEUTROPHILS 51.4 % (40-80); PLATELET COUNT 174 10x3/uL (130-400); RBC 3.77 10x6/uL (4.20-6.10); RDW 13.4 % (11.5-14.5); WBC 5.3 10x3/uL (4.8-10.8)
[2017-02-15 05:56] LABS: ALBUMIN 2.9 g/dL (3.4-5.0); ALKALINE PHOSPHATASE 66 U/L (46-116); ALT (SGPT) 15 U/L (10-68); CALC OSMOLALITY 277 mosm/kg (275-300); CALCIUM 8.5 mg/dL (8.5-10.1); CARBON DIOXIDE 26.9 mmol/L (21.0-32.0); CHLORIDE - SERUM 104 mmol/L (98-107); CREATININE - SERUM 0.9 mg/dL (0.6-1.3); GLUCOSE 94 mg/dL (74-106); POTASSIUM - SERUM 4.2 mmol/L (3.5-5.1); SODIUM 137 mmol/L (136-145); UREA NITROGEN 25 mg/dL (7-18); eGFR NON AFRICAN AMERICAN 85 mL/min (90-120)
--- NOTE | 2017-02-15 07:55 | NUR ---
REPORT RECEIVED FROM STATIONARY PLANT OPERATORS NURSE. CALL LIGHT IN REACH.
--- NOTE | 2017-02-15 08:04 | NUR ---
ASSESSMENT COMPLETED. SCDs APPLIED TO BLE. PASSWORD OBTAINED AND PLACED IN COMPUTER. CARE PLAN WRITTEN ON BOARD AND DISCUSSED WITH PATIENT. VERBALIZED UNDERSTANDING. CALL LIGHT IN REACH. WILL CONTINUE WITH PLAN OF CARE.
--- NOTE | 2017-02-15 08:44 | NUR ---
ASSESSMENT COMPLETED. STILL REFUSES SCDs. CALL LIGHT IN REACH. WILL CONTINUE WITH PLAN OF CARE.
[2017-02-15 09:05] VITALS: BP 94/41
--- NOTE | 2017-02-15 10:09 | NUR ---
AMBULATED 250 FEET IN HALLWAY WITH PHYSICAL THERAPY. TOLERATED WELL. AM MEDS ADMINISTERED EXCEPT FOR LISINOPRIL D/T BP OF 92/41. CALL LIGHT IN REACH.
--- NOTE | 2017-02-15 10:43 | NUR ---
SPOKE WITH LESLYE SPARKS, ABOUT LOW BP. NEW ORDERS RECEIVED.
--- NOTE | 2017-02-15 10:48 | NUR ---
NS BOLUS 500 CC IV INITIATED PER ORDER. CARAFATE PO. HAS TAKEN SHOWER AND BED HAS BEEN CHANGED PER CORRESPONDENCE DICTATOR.
[2017-02-15 11:35] VITALS: BP 92/47
--- NOTE | 2017-02-15 11:55 | NUR ---
BOLUS COMPLETED AT THIS TIME. IV PATENT.
--- NOTE | 2017-02-15 13:24 | NUR ---
RESTING WITH EYES CLOSED. RESP EVEN AND UNLABORED. CALL LIGHT IN REACH.
--- NOTE | 2017-02-15 13:42 | NUR ---
OT NOTE: PT REPORTED FEELING BETTER TODAY. PT ABLE TO PERFORM UE AROM EXS TO INCLUDE ALL JOINTS X 10 REPS ; PRACTICED STANDING TO PERFORM TASKS TO IMPROVE STANDING BALANCE..STATIC STANDING AT G- LEVEL; DYNAMIC STANDING AT FAIR LEVEL. PT ABLE TO AMB TO BATHROOM WITH SBA. INSTRUCTED PT TO SIT UP IN CHAIR FREQ THROUGHOUT THE DAY TO ASSIST WITH ENDURANCE
--- NOTE | 2017-02-15 14:55 | NUR ---
DR. MAYNARD IN ROOM TO SPEAK WITH AND ASSESS PATIENT.
--- NOTE | 2017-02-15 15:22 | NUR ---
NIECE IN ROOM. RHYTHMOL PO. CALL LIGHT IN REACH.
[2017-02-15 16:12] VITALS: BP 100/52
--- NOTE | 2017-02-15 16:34 | NUR ---
Patient Name: COOPER BUCIO Admission Status: ER Accout number: [id number] Admission Date: 02-13-2017 : 1929 Admission Diagnosis: Attending: KATYA HARRIS Current LOS: 2 Anticipated DC Date: 02-19-2017 Planned Disposition: Home Primary Insurance: [facility] Discharge Planning Comments: CM MET WITH PATIENT REGARDING D/C NEEDS AND PLANS. PATIENT STATED HE LIVES ALONE AND HIS DAUGHTER (ANKIT) WILL DRIVE HIM HOME AT DISCHARGE. PAITENT STATED HE HAS 3 STEPS TO ENTER HOME AND NO STAIRS INSIDE. PATIENT STATED HE IS INDEPENDENT WITH HIS CARE AND HAS A CANE, SHOWER CHAIR, AND BS COMMODE AT HOME. PATIENTS PCP IS DR. FERNÁNDEZ AND PHARMACY IS [facility]. PATIENT DOES NOT WANT HOME HEALTH AT THIS TIME. CM WILL CONTINUE TO FOLLOW PATIENT WITH D/C NEEDS AND PLANS. PCP DR[facility]- [phone] ANKIT (DAUGHTER) [phone] Agriculture Mechanic: Rosibel Boogie Is the patient Alert and Oriented? Yes 0 * How many steps to enter\exit or inside your home? 3 W/RAILS 0 * PCP DR. FERNÁNDEZ 0 * Pharmacy [facility] 0 * Preadmission Environment Home Alone 0 * ADLs Independent 0 * Equipment Bedside Commode Cane Shower Chair 0 * List name and contact numbers for known caregivers / representatives who currently or will assist patient after discharge: ANKIT (DAUGHTER) [phone] 0 * Community resources currently utilized None 0 * Additional services required to return to the preadmission environment? Yes 0 * Can the patient safely return to the preadmission environment? Yes 0 * Has this patient been hospitalized within the prior 30 days at any hospital? No 0 Grand Total: 0
--- NOTE | 2017-02-15 17:03 | NUR ---
ZOSYN OVER 4 HOURS. XARELTO AND CARAFATE. CALL LIGHT IN REACH.
--- NOTE | 2017-02-15 17:58 | NUR ---
PT LAYING IN BED WITH NO VISABLE SIGNS OF PAIN OR DISCOMFORT AT THIS TIME. BED IN LOW POSITION AND CALL LIGHT WITHIN REACH. WILL CONTINUE TO MONITOR.
--- NOTE | 2017-02-15 18:39 | NUR ---
NO CHANGES IN INITIAL ASSESSMENT. CALL LIGHT IN REACH. STILL REFUSES SCDs. WILL CONTINUE WITH PLAN OF CARE.
--- NOTE | 2017-02-15 20:10 | NUR ---
ALERT,UP AD FLAQUITO IN ROOM. NO COMPAINTS OF DISCOMFORT. HOSPITAL MANAGER DILAUDID IN USE FOR PAIN CONTROL. IV INFUSING TO LEFT FOREARM WIHTOUT REDNESS OR EDEMA NOTED. CL IN REACH.
--- NOTE | 2017-02-15 21:17 | NUR ---
PATIENT IS AWAKE, ALERT AND ORIENTED X'S 4. DILAUDID CURING PRESS OPERATOR SYRINGE IS EMPTY , PUMP IS BEEPING. RELOADED CURING PRESS OPERATOR SYRINGE. PATIENT DENIES NEEDS AT THIS TIME. BED IN LOWEST POSITION, CALL LIGHT IN REACH. BED RIALS UP X'S 2.
[2017-02-15 21:30] VITALS: BP 133/69
[2017-02-16] VITALS (7 sets, daily range): BP systolic 101–159; BP diastolic 45–83
--- NOTE | 2017-02-16 01:11 | NUR ---
RESTING QUIETLY.NO DISTRESS NOTED. CL IN REACH.
--- NOTE | 2017-02-16 05:08 | NUR ---
AWAKE WITH NO COMPLAINTS. NO CHANGE IN ASSESSMENT.
[2017-02-16 05:11] LABS: BASOPHILS 0.2 % (0-2); EOSINOPHILS 2.6 % (0-7); HEMATOCRIT 35.1 % (42.0-54.0); HEMOGLOBIN 11.4 g/dL (13.5-17.5); IMMATURE GRANULOCYTES 0.2 % (0-5); LYMPHOCYTES 37.4 % (15-50); MCH 31.6 pg (26.0-34.0); MCHC 32.5 g/dL (31.0-37.0); MCV 97.2 fL (80.0-100.0); MEAN PLATELET VOLUME 10.3 fL (7.4-10.4); MONOCYTES 12.5 % (2-11); NEUTROPHILS 47.1 % (40-80); PLATELET COUNT 160 10x3/uL (130-400); RBC 3.61 10x6/uL (4.20-6.10); RDW 13.3 % (11.5-14.5); WBC 4.6 10x3/uL (4.8-10.8)
[2017-02-16 05:35] LABS: ALBUMIN 2.8 g/dL (3.4-5.0); ANION GAP 9.4 mmol/L (8-16); BILIRUBIN - TOTAL 0.45 mg/dL (0.2-1.3); CALCIUM 8.7 mg/dL (8.5-10.1); CARBON DIOXIDE 28.7 mmol/L (21.0-32.0); CREATININE - SERUM 1.1 mg/dL (0.6-1.3); POTASSIUM - SERUM 4.1 mmol/L (3.5-5.1); PROTEIN - SERUM 5.8 g/dL (6.4-8.2)
--- NOTE | 2017-02-16 07:00 | NUR ---
REPORT RECEIVED FROM HARVEST CREW SUPERVISOR NURSE. CALL LIGHT IN REACH.
--- NOTE | 2017-02-16 08:37 | NUR ---
ASSESSMENT COMPLETED. REFUSES SCDs AT THIS TIME. CALL LIGHT IN REACH. WILL CONTINUE WITH PLAN OF CARE.
--- NOTE | 2017-02-16 09:27 | NUR ---
AM MEDS ADMINISTERED PER ORDER. STATES PAIN MEDS ARE NOT WORKING LIKE THEY NORMALLY ARE. BOLUS ADMINISTERED. CALL LIGHT IN REACH.
--- NOTE | 2017-02-16 11:34 | NUR ---
SITTING IN CHAIR. FLORAJEN PO. EXPLAINED WHAT IT IS AND WHAT IT IS USED FOR. ALSO EXPLAINED S/S TO PATIENT. VERBALIZED UNDERSTANDING. CARAFATE 1 MG SLURRY PO. EXPLAINED TO PATIENT NOT TO DRINK ANYTHING FOR ABOUT 10 MINUTES AFTER SLURRY TO GIVE THE MED TIME TO COAT HIS STOMACH. VERBALIZED UNDERSTANDING AGAIN. STATES HIS PAIN IS DOWN TO A 4 WHICH IS THE LOWEST IT HAS BEEN SINCE HE HAS BEEN HERE. HE STATED THAT IT BECAME BETTER AFTER "I KEPT HITTING THE BUTTON OVER AND OVER AND OVER." EXPLAINED TO PATIENT TO MAKE SURE HE ONLY HITS IT WHEN IT IS DUE AND ALSO EXPLAINED AGAIN HOW THE LINING CLEANER WORKS. HE KNOWS THAT HE CAN ONLY GET MEDICINE WHEN THE BUTTON IS GREEN NO MATTER HOW MANY TIMES HE PUSHES IT. 800 CC OF DARK URINE EMPTIED FROM URINAL. NO OTHER NEEDS VOICED AT THIS TIME. CALL LIGHT IN REACH.
--- NOTE | 2017-02-16 12:37 | NUR ---
OT NOTE: PT PERFORMED TOILETING WITH SPV; ABLE TO AMB FROM BED TO TOILET WITH SPV; CLOTHING MGMT WITHOUT ASSIST. PT ABLE TO AMB AROUND ROOM WITH IV POLE AND ALSO AMB INTO THE COTTO. REPORTS THAT HES FEELING BETTER BUT STILL HAS PAIN.
--- NOTE | 2017-02-16 13:25 | NUR ---
AMBULATED OVER 500 FEET IN HALLWAY ADLIB. TOLERATED WELL.
--- NOTE | 2017-02-16 14:29 | NUR ---
LOVENOX SUBQ. S/S EXPLAINED TO PATIENT. RHYTHMOL PO. CALL LIGHT IN REACH.
--- NOTE | 2017-02-16 16:01 | NUR ---
CARAFATE PO PER ORDER. CALL LIGHT IN REACH.
--- NOTE | 2017-02-16 18:15 | NUR ---
OT NOTE: PT COMPLETED DYNAMIC SITTING BALANCE AND SITTING BALANCE WITH SBA. PT COMPLETED BUE AROM EXS FOR INCREASED I WITH ADLS. PT COMPLETED SIMPLE HYGIENE TASK WITH SET UP. THANK YOU, REGGIE PIERCE/[employer]
--- NOTE | 2017-02-16 18:26 | NUR ---
PT AOX4 RESP EVEN AND NONLABORED PT DENIES NEEDS AT THIS TIME NO IV AT THIS TIME. PT HERE FOR UTI FOR THIS VISIT SRX2 BED AT LOWEST SETTING CALL LIGHT WITHIN REACH WILL CONTINUE TO MONITOR
--- NOTE | 2017-02-16 19:59 | NUR ---
ASSESSMENT PER FLOWSHEET. IV PATENT LEFT HAND OF NS AT 50CC'S/HR SANDBLAST CARVER OF DILAUDID WITH SETTINGS AT 0.2MG Q10MIN W/4MG Q4H L/O. PERMITS EXPLAINED TP PATIENT SIGNED WITNESSED AND PLACE IN CHART.
--- NOTE | 2017-02-16 21:00 | NUR ---
MEDS GIVEN PER JUN. PT UP AD FLAQUITO TO BR.BALANCE AND GAIT STEADY.
--- NOTE | 2017-02-17 | NUR ---
NPO FOR SURGERY IN AM.
--- NOTE | 2017-02-17 03:00 | NUR ---
EYES CLOSED RESPIRATIONS WITH EASE AND UNLABORED.
[2017-02-17 04:00] VITALS: BP 143/61
[2017-02-17 05:15] LABS: BASOPHILS 0.2 % (0-2); EOSINOPHILS 3.1 % (0-7); HEMATOCRIT 37.2 % (42.0-54.0); HEMOGLOBIN 12.3 g/dL (13.5-17.5); LYMPHOCYTES 41.8 % (15-50); MCH 31.7 pg (26.0-34.0); MCHC 33.1 g/dL (31.0-37.0); MCV 95.9 fL (80.0-100.0); MEAN PLATELET VOLUME 10.9 fL (7.4-10.4); MONOCYTES 13.2 % (2-11); NEUTROPHILS 41.7 % (40-80); RBC 3.88 10x6/uL (4.20-6.10); RDW 13.2 % (11.5-14.5); WBC 4.9 10x3/uL (4.8-10.8)
[2017-02-17 05:38] LABS: PLATELET COUNT 119 10x3/uL (130-400)
[2017-02-17 05:58] LABS: ANION GAP 13.6 mmol/L (8-16); BILIRUBIN - TOTAL 0.73 mg/dL (0.2-1.3); CALCIUM 8.2 mg/dL (8.5-10.1); CARBON DIOXIDE 27.3 mmol/L (21.0-32.0); CREATININE - SERUM 1.1 mg/dL (0.6-1.3); POTASSIUM - SERUM 3.9 mmol/L (3.5-5.1); PROTEIN - SERUM 6.3 g/dL (6.4-8.2)
--- NOTE | 2017-02-17 06:00 | NUR ---
NO CHANGES IN ASSESSMENT HELD PT'S AM PO MEDS HE IS NPO FOR SURGERY.
--- NOTE | 2017-02-17 07:30 | NUR ---
ASSESSMENT PER FLOW SHEET.PT WITHOUT DISTRESS.NPO FOR PROCEDURE TODAY ORDERED.CALL LIGHT IN REACH
[2017-02-17 08:16] VITALS: BP 149/78
--- NOTE | 2017-02-17 09:00 | NUR ---
ASSIST WITH HEPI CLENS SHOWER.
--- NOTE | 2017-02-17 11:55 | NUR ---
FAMILY AT BEDSIDE.PT REMAINS WITHOUT DITRESS. HE REMAINS NPO
[2017-02-17 12:33] VITALS: BP 122/55
--- NOTE | 2017-02-17 12:56 | NUR ---
TO OR VIA BED
[2017-02-17 15:42] VITALS: BP 121/56
--- NOTE | 2017-02-17 15:57 | NUR ---
BACK TO ROOM.VSS. PT C/O PAIN IN BACK,PAIN MEDS ORDERED PER JUN.MONITOR FOR NEEDS
--- NOTE | 2017-02-17 18:14 | NUR ---
REMAINS WITHOUT NEEDS,WITHOUT CHANGE FROM INITIAL ASSESSMENT.CONT PLAN OF CARE
--- NOTE | 2017-02-17 19:00 | NUR ---
REPORT RECEIVED AND CARE OF PT ASSUMED. PT LYING ON RIGHT SIDE WITH EYES CLOSED AND EASY RESPIRATIONS. IV IN LEFT FA PATENT WITH NS INFUSING AT 30 ML / HR. CALENDER SUPERVISOR / DILAUDID IN USE FOR PAIN CONTROL. TELEMETRY IN PLACE AND READING 52 SB AT THIS ASSESSMENT. CALL LIGHT WITHIN REACH.
[2017-02-17 20:00] VITALS: BP 103/56
--- NOTE | 2017-02-17 21:00 | NUR ---
HS MEDICATIONS GIVEN. WILL CONTINUE TO MONITOR FOR NEEDS. CALL LIGHT WITHIN REACH. SIDE RAILS UP X2 FOR SAFETY.
--- NOTE | 2017-02-17 23:43 | NUR ---
PT RESTING QUIETLY ON RIGHT SIDE WITH UNLABORED BREATHING. SIDE RAILS UP X2 FOR SAFETY.
[2017-02-18] VITALS: BP 113/57
[2017-02-18 04:00] VITALS: BP 141/73
[2017-02-18 05:21] LABS: BASOPHILS 0.2 % (0-2); EOSINOPHILS 2.1 % (0-7); HEMOGLOBIN 12.2 g/dL (13.5-17.5); IMMATURE GRANULOCYTES 0.2 % (0-5); MCH 31.4 pg (26.0-34.0); MCV 95.4 fL (80.0-100.0); MEAN PLATELET VOLUME 10.6 fL (7.4-10.4); MONOCYTES 10.6 % (2-11); NEUTROPHILS 44.9 % (40-80); PLATELET COUNT 121 10x3/uL (130-400); RBC 3.88 10x6/uL (4.20-6.10); RDW 13.1 % (11.5-14.5); WBC 4.8 10x3/uL (4.8-10.8)
[2017-02-18 05:46] LABS: ANION GAP 13.1 mmol/L (8-16); BILIRUBIN - TOTAL 0.81 mg/dL (0.2-1.3); CALCIUM 8.6 mg/dL (8.5-10.1); CARBON DIOXIDE 26.1 mmol/L (21.0-32.0); CREATININE - SERUM 1.1 mg/dL (0.6-1.3); POTASSIUM - SERUM 4.2 mmol/L (3.5-5.1); PROTEIN - SERUM 6.1 g/dL (6.4-8.2)
[2017-02-18 08:00] VITALS: BP 143/72
--- NOTE | 2017-02-18 08:58 | OP ---
PATIENT NAME: COOPER BUCIO MEDICAL RECORD: [id number] :29 LOCATION:[id number] ADMISSION DATE:02/13/17 SURGEON: MICHAEL AHUMADA MD DATE OF OPERATION: 02/17/2017 SURGEON: Michael Ahumada MD ANESTHESIA: TIVA by Phoenix Tejada CRNA. PREOPERATIVE DIAGNOSES: An 11mm bladder stone, recurrent urinary tract infection with pseudomonas. PROCEDURES: Cystoscopy and bladder stone removal. FINDINGS: Radiodense 11mm bladder stone, heavily trabeculated bladder with multiple diverticula. SPECIMENS: Bladder stone. COMPLICATIONS: None. BLOOD LOSS: None. CLINICAL HISTORY: This is an 86-year-old male with a longstanding history of recurrent UTIs with pseudomonas. He initially was seen by Dr. Arvizu. The source of the urinary tract infections were initially inscribed to right renal stones in the lower pole. Dr. Arvizu said he could not get the stones out and therefore the patient was consigned to having antibiotics for the rest of his life. He came to see me and in the summer I performed a right percutaneous nephrolithotomy and got rid of his renal stones entirely. He still continued to have recurrent UTIs. He had obstructive BPH symptoms and finally I performed GreenLight laser TURP on him recently. He came back to the hospital with another UTI with pseudomonas. CT scan suggests that there is a bladder stone in diverticulum. This is somewhat to the right of the midline. When I had performed cystoscopy on the patient at the time of the GreenLight TURP, I had looked for the so-called bladder stone and I could not find it. Today, I am going to try to identify the stone location with the aid of fluoroscopy. The patient was given Ancef meat boner to the OR. He is not allergic to any medications. DESCRIPTION OF PROCEDURE: The patient was given IV sedation. He was placed in the dorsal lithotomy position and prepped and draped. A 21-Botswanan cystoscope with 30-degree lens was used for visualization. Penile urethra was nonobstructive. Prostatic urethra shows signs of previous resection and there were still some sloughing tissue present in the prostatic urethra. Going into the bladder, he has single ureteral orifices on each side. 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 No bladder tumors were seen. Under fluoroscopy, we could see radiodensity towards the dome to the anterior wall and somewhat to the right of the bladder. I looked in multiple diverticula along the line suggested by the fluoroscopy. Finally in one diverticula, I saw a hint of darkness, which suggested that the bladder stone may be there. I put a grasping forceps into it to dilate the diverticular opening. I could not get the grasping forcep jaws to get around the stone. I inserted a 4 wire 0-tip basket and managed to trap the stone within the wires of the basket. The stone was then removed with the cystoscope of the unit. The OPERATIVE REPORT [id number] FORTUNATOCOOPER Williamson stone will be sent to pathology for stone analysis. I put the scope back in and repeated the fluoroscopic maneuvers. There were some other potential radiodensities, but these were not mobile with the bladder. Also, examining the diverticula further, I could see no other stones present. The bladder was emptied completely through the cystoscope sheath and then the scope was removed. The patient will be awakened and brought back to his room. TRANSINT:[id number] Voice Confirmation ID: [id number] DOCUMENT ID: [id number] MICHAEL AHUMADA MD at 0858 CC: [id number] DICTATION DATE: 02/17/17 1516 BUILDING CONSTRUCTION IRONWORKER: 02/17/17 1551 [facility] IN [facility] [address] [place] [address]
[2017-02-18 12:29] VITALS: BP 140/81
--- NOTE | 2017-02-18 13:18 | NUR ---
NUTRITION F/U CHART REVIEWED. PT SLEEPING AT THIS TIME. 100% INTAKE RECENT MEALS. REG DIET. CONTINUES TO BE ASSESSED AT LOW NUTRITIONAL RISK. RD FOLLOWING
[2017-02-18 16:13] VITALS: BP 118/68
[2017-02-18 20:00] VITALS: BP 143/74
--- NOTE | 2017-02-18 21:40 | NUR ---
PATIENT SLEEPING ON LEFT SIDE, NO NEEDS NOTED.
[2017-02-19] VITALS: BP 138/70
--- NOTE | 2017-02-19 03:33 | NUR ---
ASSESSED, PT IS AWAKE AND REPOSIIONING IN BED. STATED HIS BACK WAS HURTING AND LYING ON HIS SIDE WAS BETTER. HE ALSO HAS A SCHOOL COOK FOR PAIN CONTROL. THE BED IS LOW, RAILS UP X'S 2 WITH THE CALL LIGHT AT HAND.
[2017-02-19 04:00] VITALS: BP 121/48
[2017-02-19 04:57] LABS: BASOPHILS 0 % (0-2); HEMATOCRIT 36.8 % (42.0-54.0); HEMOGLOBIN 12.2 g/dL (13.5-17.5); LYMPHOCYTES 34.1 % (15-50); MCH 31.4 pg (26.0-34.0); MCHC 33.2 g/dL (31.0-37.0); MCV 94.8 fL (80.0-100.0); MEAN PLATELET VOLUME 10.1 fL (7.4-10.4); MONOCYTES 11.7 % (2-11); NEUTROPHILS 51.2 % (40-80); RBC 3.88 10x6/uL (4.20-6.10); RDW 13.1 % (11.5-14.5); WBC 4.7 10x3/uL (4.8-10.8)
[2017-02-19 05:01] LABS: PLATELET COUNT 177 10x3/uL (130-400)
[2017-02-19 05:13] LABS: ALBUMIN 2.9 g/dL (3.4-5.0); ALKALINE PHOSPHATASE 66 U/L (46-116); ALT (SGPT) 14 U/L (10-68); BILIRUBIN - TOTAL 0.54 mg/dL (0.2-1.3); CALC OSMOLALITY 282 mosm/kg (275-300); CALCIUM 8.8 mg/dL (8.5-10.1); CARBON DIOXIDE 28.6 mmol/L (21.0-32.0); CHLORIDE - SERUM 106 mmol/L (98-107); GLUCOSE 102 mg/dL (74-106); POTASSIUM - SERUM 3.8 mmol/L (3.5-5.1); PROTEIN - SERUM 6.1 g/dL (6.4-8.2); SODIUM 140 mmol/L (136-145); UREA NITROGEN 23 mg/dL (7-18); eGFR NON AFRICAN AMERICAN 75 mL/min (90-120)
--- NOTE | 2017-02-19 07:15 | NUR ---
REPORT REACEIVED FROM WASTE RECYCLER NURSE. CALL LIGHT IN REACH.
--- NOTE | 2017-02-19 08:20 | NUR ---
ASSESSMENT COMPLETED. AM MEDS ADMINISTERED. CALL LIGHT IN REACH. STILL REFUSES SCDs BUT ON LOVENOX. CALL LIGHT IN REACH. WILL CONTINUE WITH PLAN OF CARE.
[2017-02-19 09:38] VITALS: BP 111/50
--- NOTE | 2017-02-19 10:20 | NUR ---
NO NEEDS VOICED AT THIS TIME. CALL LIGHT IN REACH.
[2017-02-19 11:52] VITALS: BP 133/70
--- NOTE | 2017-02-19 12:46 | NUR ---
CARMITA AND LÁZARO GRANT CALL LIGHT IN REACH.
--- NOTE | 2017-02-19 13:45 | NUR ---
IV TUBING CHANGED PER HOSPITAL PROTOCOL.
--- NOTE | 2017-02-19 15:55 | NUR ---
QING IVPB. RHTYHMOL AND CARAFATE PO. STATES HE HAD 1 BM TODAY.
--- NOTE | 2017-02-19 16:00 | NUR ---
QING IVPB. RHTYHMOL AND CARAFATE PO. STATES HE HAD 1 BM TODAY.
[2017-02-19 16:41] VITALS: BP 136/65
--- NOTE | 2017-02-19 17:41 | NUR ---
RESTING QUIETLY IN BED. DENIES ANY NEEDS AT THIS TIME.
--- NOTE | 2017-02-19 18:21 | NUR ---
LOVENOX SUBQ TO RLQ. NO CHANGES IN INITIAL ASSESSMENT. STILL REFUSES SCDs. CALL LIGHT IN REACH. WILL CONTINUE WITH PLAN OF CARE.
--- NOTE | 2017-02-19 19:00 | NUR ---
REPORT RECEIVED AND CARE OF PT ASSUMED. PT LYING IN SUPINE POSITION WITH EYES CLOSED AND EASY RESPIRATIONS. IV IN LEFT FA PATENT WITH NS INFUSING AT 20 ML / HR. PARKING REGULATION ENFORCEMENT OFFICER / DILAUDID IN USE FOR PAIN CONTROL. [facility] AND [facility] 54 SB AT THIS ASSESSMENT. WILL MONITOR CLOSELY FOR NEEDS.
[2017-02-19 20:00] VITALS: BP 96/44
--- NOTE | 2017-02-19 20:40 | NUR ---
HS MEDICATIONS GIVEN. WILL CONTINUE TO MONITOR FOR NEEDS.
[2017-02-20] VITALS: BP 102/59; BP 116/52
--- NOTE | 2017-02-20 07:15 | NUR ---
REPORT RECEIVED FROM BULLARD MACHINE OPERATOR NURSE. CALL LIGHT IN REACH.
--- NOTE | 2017-02-20 07:48 | NUR ---
ASSESSMENT COMPLETED. STILL REFUSING SCDs. DENIES NEEDS. CALL LIGHT IN REACH. WILL CONTINUE WITH PLAN OF CARE.
[2017-02-20 08:10] VITALS: BP 132/56
--- NOTE | 2017-02-20 09:24 | NUR ---
SITTING UP IN CHAIR WATCHING TV. DENIES ANY NEEDS AT THIS TIME.
--- NOTE | 2017-02-20 10:12 | NUR ---
AM MEDS ADMINISTERED. SHOWER TAKEN ADLIB WHILE I CHANGED HIS LINENS.
[2017-02-20 11:33] LABS: BASOPHILS 0.2 % (0-2); EOSINOPHILS 2.8 % (0-7); HEMATOCRIT 35.7 % (42.0-54.0); HEMOGLOBIN 11.9 g/dL (13.5-17.5); MCH 31.6 pg (26.0-34.0); MCHC 33.3 g/dL (31.0-37.0); MCV 94.9 fL (80.0-100.0); MEAN PLATELET VOLUME 9.6 fL (7.4-10.4); MONOCYTES 12.5 % (2-11); NEUTROPHILS 51.5 % (40-80); PLATELET COUNT 175 10x3/uL (130-400); RBC 3.76 10x6/uL (4.20-6.10); RDW 13.3 % (11.5-14.5); WBC 4.2 10x3/uL (4.8-10.8)
[2017-02-20 11:48] LABS: ALBUMIN 2.9 g/dL (3.4-5.0); ANION GAP 12.1 mmol/L (8-16); BILIRUBIN - TOTAL 0.54 mg/dL (0.2-1.3); CALCIUM 8.5 mg/dL (8.5-10.1); CARBON DIOXIDE 26.4 mmol/L (21.0-32.0); CREATININE - SERUM 1.1 mg/dL (0.6-1.3); POTASSIUM - SERUM 3.5 mmol/L (3.5-5.1); PROTEIN - SERUM 6.1 g/dL (6.4-8.2)
--- NOTE | 2017-02-20 12:00 | NUR ---
CARMITA AND LÁZARO BE. DENIES NEEDS. CALL LIGHT IN REACH.
[2017-02-20 12:51] VITALS: BP 116/60
--- NOTE | 2017-02-20 14:24 | NUR ---
NO NEEDS VOICED AT THIS TIME. CALL LIGHT IN REACH.
--- NOTE | 2017-02-20 15:37 | NUR ---
CARAFATE AND RHYTHMOL PO. CALL LIGHT IN REACH.
[2017-02-20 16:55] VITALS: BP 108/49
--- NOTE | 2017-02-20 17:09 | NUR ---
ZOSYN IVPB AND LOVENOX SUBQ. NO OTHER NEEDS VOICED AT THIS TIME. CALL LIGHT IN REACH.
--- NOTE | 2017-02-20 18:07 | NUR ---
NO CHANGES IN INITIAL ASSESSMENT. CALL LIGHT IN REACH. STILL REFUSES SCDs. WILL CONTINUE WITH PLAN OF CARE.
--- NOTE | 2017-02-20 19:00 | NUR ---
REPORT RECEIVED AND CARE OF PT ASSUMED. PT LYING ON LEFT SIDE WITH EYES CLOSED AND EASY RESPIRATIONS. IV IN LEFT FA PATENT WITH NS INFUSING AT 20 ML / HR. ATOMIC WELDER / DILAUDID IN USE FOR PAIN CONTROL. TELEMETRY IN PLACE AND READING 57 SB AT THIS ASSESSMENT. WILL MONITOR JUST[place] FOR NEEDS.
[2017-02-20 20:00] VITALS: BP 125/50
--- NOTE | 2017-02-20 20:47 | NUR ---
HS MEDICATIONS GIVEN. WILL CONTINUE TO MONITOR FOR NEEDS.
[2017-02-21] VITALS: BP 114/53
[2017-02-21 04:00] VITALS: BP 123/53
[2017-02-21 05:17] LABS: BASOPHILS 0.2 % (0-2); EOSINOPHILS 3.8 % (0-7); HEMATOCRIT 36.2 % (42.0-54.0); HEMOGLOBIN 11.9 g/dL (13.5-17.5); IMMATURE GRANULOCYTES 0.2 % (0-5); LYMPHOCYTES 37.9 % (15-50); MCH 31.1 pg (26.0-34.0); MCHC 32.9 g/dL (31.0-37.0); MCV 94.5 fL (80.0-100.0); MEAN PLATELET VOLUME 10.8 fL (7.4-10.4); MONOCYTES 12.9 % (2-11); RBC 3.83 10x6/uL (4.20-6.10); RDW 13.4 % (11.5-14.5); WBC 4.2 10x3/uL (4.8-10.8)
[2017-02-21 05:31] LABS: PLATELET COUNT 116 10x3/uL (130-400)
[2017-02-21 05:44] LABS: ALBUMIN 2.7 g/dL (3.4-5.0); ALKALINE PHOSPHATASE 67 U/L (46-116); ALT (SGPT) 13 U/L (10-68); CALC OSMOLALITY 280 mosm/kg (275-300); CALCIUM 8.6 mg/dL (8.5-10.1); CARBON DIOXIDE 27.9 mmol/L (21.0-32.0); CHLORIDE - SERUM 107 mmol/L (98-107); CREATININE - SERUM 0.9 mg/dL (0.6-1.3); GLUCOSE 103 mg/dL (74-106); POTASSIUM - SERUM 3.6 mmol/L (3.5-5.1); PROTEIN - SERUM 5.6 g/dL (6.4-8.2); SODIUM 140 mmol/L (136-145); UREA NITROGEN 19 mg/dL (7-18); eGFR NON AFRICAN AMERICAN 85 mL/min (90-120)
--- NOTE | 2017-02-21 07:15 | NUR ---
ASSESSMENT PER FLOW SHEET.PT WITHOUT DISTRESS.DENIES NEEDS.CALL LIGHT IN REACH.PT STATES PAIN 7/10 SCALE TO BACK.PT STATES CHRONIC PAIN.COAL TOWER OPERATOR USE INSTRUCTED
[2017-02-21 09:29] VITALS: BP 133/79
[2017-02-21 13:17] VITALS: BP 145/71
--- NOTE | 2017-02-21 13:42 | NUR ---
UP IN CHAIR WITHOUT DISTRESS.CT COMPLETE.STILL DENIES NEEDS.MONITOR
[2017-02-21 15:23] VITALS: BP 153/60
--- NOTE | 2017-02-21 16:35 | NUR ---
REMINS WITHOUT SIGNS OF DISTRESS.WITHOUT CHNAGE.CONT PLAN OF CARE
--- NOTE | 2017-02-21 19:30 | NUR ---
RECEIVED REPORT, PT RESTING ON LEFT SIDE WITH EYES CLOSED AT THIS TIME. NO DISTRESS NOTED. CALL LIGHT IN REACH, WILL CONTINUE TO MONITOR.
[2017-02-21 20:00] VITALS: BP 125/65
[2017-02-22 04:00] VITALS: BP 151/86
[2017-02-22 05:31] LABS: BASOPHILS 0.2 % (0-2); HEMATOCRIT 37.1 % (42.0-54.0); HEMOGLOBIN 12.2 g/dL (13.5-17.5); LYMPHOCYTES 44.7 % (15-50); MCH 31.4 pg (26.0-34.0); MCHC 32.9 g/dL (31.0-37.0); MCV 95.4 fL (80.0-100.0); MONOCYTES 11.5 % (2-11); NEUTROPHILS 39.6 % (40-80); PLATELET COUNT 121 10x3/uL (130-400); RBC 3.89 10x6/uL (4.20-6.10); RDW 13.5 % (11.5-14.5); WBC 4.5 10x3/uL (4.8-10.8)
--- NOTE | 2017-02-22 05:43 | NUR ---
FISH BAILER HAS BEEN DISCONTINUED. PUT IN A PAGE TO KATLYN IN REGARDS TO PAIN MEDICAION. PT STATED "I CAN NOT STAY HERE IF YALL DO NOT GIVE ME SOMETHING FOR PAIN."
[2017-02-22 05:47] LABS: ALBUMIN 2.9 g/dL (3.4-5.0); ALKALINE PHOSPHATASE 60 U/L (46-116); ALT (SGPT) 16 U/L (10-68); BILIRUBIN - TOTAL 0.47 mg/dL (0.2-1.3); CALC OSMOLALITY 282 mosm/kg (275-300); CALCIUM 8.4 mg/dL (8.5-10.1); CHLORIDE - SERUM 106 mmol/L (98-107); GLUCOSE 90 mg/dL (74-106); POTASSIUM - SERUM 3.6 mmol/L (3.5-5.1); SODIUM 141 mmol/L (136-145); UREA NITROGEN 17 mg/dL (7-18); eGFR NON AFRICAN AMERICAN 75 mL/min (90-120)
--- NOTE | 2017-02-22 08:00 | NUR ---
ASSESSMENT PER FLOW SHEET.PT WITHOUT DISTRESS AT PRESENT. DENIES NEEDS. CALL LIGHT IN REACH
[2017-02-22 09:38] VITALS: BP 172/73
--- NOTE | 2017-02-22 10:00 | NUR ---
NPO AFTER BREAKFAST FOR PROCEDURE TODAY ORDERED.
[2017-02-22 13:11] VITALS: BP 171/79
--- NOTE | 2017-02-22 14:50 | NUR ---
CONSENTS TO CHART
[2017-02-22 16:23] VITALS: BP 148/80
--- NOTE | 2017-02-22 18:59 | NUR ---
WAITING TO GO TO OR,REMAINS NPO. WITHOUT CHNAGE.CONT PLAN OF CARE
[2017-02-22 20:00] VITALS: BP 175/94
--- NOTE | 2017-02-22 20:00 | NUR ---
ASSESSMENT PER FLOWSHEET. SURGERY WAS CANCELLED BY DR. AHUMADA. INFORMED PATIENT OF CANCELLATION. PATIENT GIVEN A FOOD TRAY TO EAT. PLACED ON TELM. SHOWS SR WITH HR 64. SR UP X2 CALL LIGHT WITHIN REACH.IV PATENT LEFT FOREARM OF NS AT 50CC'S/HR.
--- NOTE | 2017-02-22 21:15 | NUR ---
MEDS GIVEN PER MAR.
--- NOTE | 2017-02-22 22:00 | NUR ---
RESTING QUIETLY DENIES NEEDS.
[2017-02-23] VITALS: BP 99/54
--- NOTE | 2017-02-23 02:00 | NUR ---
EYES CLOSED RESPIRATIONS WITH EASE AND UNLABORED.
[2017-02-23 04:00] VITALS: BP 132/70
[2017-02-23 06:18] LABS: BASOPHILS 0.2 % (0-2); EOSINOPHILS 2.8 % (0-7); HEMATOCRIT 36.2 % (42.0-54.0); LYMPHOCYTES 36.3 % (15-50); MCH 31.7 pg (26.0-34.0); MCHC 33.1 g/dL (31.0-37.0); MCV 95.5 fL (80.0-100.0); MEAN PLATELET VOLUME 10.6 fL (7.4-10.4); MONOCYTES 13.4 % (2-11); NEUTROPHILS 47.3 % (40-80); RBC 3.79 10x6/uL (4.20-6.10); RDW 13.5 % (11.5-14.5); WBC 5.1 10x3/uL (4.8-10.8)
[2017-02-23 06:42] LABS: ALBUMIN 2.8 g/dL (3.4-5.0); ALKALINE PHOSPHATASE 58 U/L (46-116); CALC OSMOLALITY 284 mosm/kg (275-300); CALCIUM 8.9 mg/dL (8.5-10.1); CARBON DIOXIDE 27.6 mmol/L (21.0-32.0); CHLORIDE - SERUM 107 mmol/L (98-107); CREATININE - SERUM 0.9 mg/dL (0.6-1.3); GLUCOSE 96 mg/dL (74-106); POTASSIUM - SERUM 3.5 mmol/L (3.5-5.1); PROTEIN - SERUM 5.9 g/dL (6.4-8.2); SODIUM 142 mmol/L (136-145); UREA NITROGEN 18 mg/dL (7-18); eGFR NON AFRICAN AMERICAN 85 mL/min (90-120)
[2017-02-23 06:46] LABS: PLATELET COUNT 167 10x3/uL (130-400)
[2017-02-23 06:50] LABS: ALT (SGPT) 25 U/L (10-68)
[2017-02-23 08:29] VITALS: BP 128/58
--- NOTE | 2017-02-23 09:00 | NUR ---
ASSESSMENT PER FLOW SHEET.PT WITHOUT DISTRESS.MONITOR FOR NEEDS.DOOR OPEN,FAMILY AT SIDE.
--- NOTE | 2017-02-23 12:00 | NUR ---
REMAINS WITHOUT NEEDS.CALL LIGHT IN REACH
[2017-02-23 12:26] VITALS: BP 93/57
[2017-02-23 15:50] VITALS: BP 143/63
--- NOTE | 2017-02-23 19:27 | NUR ---
DENIES NEEDS,WITHOUT CHANGE.CONT PLAN OF CARE
--- NOTE | 2017-02-23 20:00 | NUR ---
ASSESSMENT PER FLOWSHEET. IV PATENT LEFT FOREARM OF NS AT 50CC'S/HR SITE CLEAR. BULKING MACHINE OPERATOR OF DILAUDID IN USE WITH SETTINGS AT 0.2MG Q10MIN W/4MG Q4H L/O. TELM. SHOWS SB WITH HR 59-60.
--- NOTE | 2017-02-23 21:30 | NUR ---
MEDS GIVEN PER MAR.
[2017-02-23 23:58] VITALS: BP 114/51
--- NOTE | 2017-02-24 | NUR ---
NPO FOR SURGERY IN AM. RESTING QUIETLY DENIES NEEDS.
[2017-02-24 02:33] VITALS: BP 135/59
--- NOTE | 2017-02-24 03:00 | NUR ---
EYES CLOSED RESPIRAIONS WITH EASE AND UNLABORED. REMAINS NPO FOR AM SURGERY.
[2017-02-24 06:11] LABS: BASOPHILS 0.2 % (0-2); EOSINOPHILS 2.6 % (0-7); HEMATOCRIT 36.6 % (42.0-54.0); HEMOGLOBIN 12.1 g/dL (13.5-17.5); LYMPHOCYTES 40.3 % (15-50); MCH 31.5 pg (26.0-34.0); MCHC 33.1 g/dL (31.0-37.0); MCV 95.3 fL (80.0-100.0); MONOCYTES 13.3 % (2-11); NEUTROPHILS 43.6 % (40-80); RBC 3.84 10x6/uL (4.20-6.10); RDW 13.5 % (11.5-14.5)
[2017-02-24 06:12] LABS: PLATELET COUNT 123 10x3/uL (130-400)
[2017-02-24 06:30] VITALS: BP 139/79
[2017-02-24 06:40] LABS: ALBUMIN 2.8 g/dL (3.4-5.0); ALKALINE PHOSPHATASE 59 U/L (46-116); ALT (SGPT) 26 U/L (10-68); CALC OSMOLALITY 283 mosm/kg (275-300); CALCIUM 8.7 mg/dL (8.5-10.1); CARBON DIOXIDE 27.4 mmol/L (21.0-32.0); CHLORIDE - SERUM 106 mmol/L (98-107); CREATININE - SERUM 0.9 mg/dL (0.6-1.3); GLUCOSE 93 mg/dL (74-106); POTASSIUM - SERUM 3.5 mmol/L (3.5-5.1); PROTEIN - SERUM 5.8 g/dL (6.4-8.2); SODIUM 141 mmol/L (136-145); UREA NITROGEN 20 mg/dL (7-18); eGFR NON AFRICAN AMERICAN 85 mL/min (90-120)
--- NOTE | 2017-02-24 07:05 | NUR ---
REPORT RECEIVED, ASSUMED CARE OF PT. RESTING, EASILY AROUSED. L FOREARM IV INFUSING ORDERED, DRSG C/D/I. NO NEEDS VOICED AT THIS TIME. BED IN LOWEST POSITION, SIDE RAILS UP X 2, CALL LIGHT WITHIN REACH.
[2017-02-24 08:08] VITALS: BP 132/60
--- NOTE | 2017-02-24 12:15 | NUR ---
PT LEFT FLOOR FOR PROCEDURE
--- NOTE | 2017-02-24 14:02 | NUR ---
NUTRITION F/U CHART REVIEWED. PT OOR FOR PROCEDURE. GOOD PO INTAKE MEALS PRIOR TO NPO. CONTINUES TO BE ASSESSED AT LOW NUTRITIONAL RISK. RD FOLLOWING
--- NOTE | 2017-02-24 14:14 | NUR ---
THE PATIENT REPORTS SOME BACK PAIN WHICH WAS THE SAME PREOPERATIVE. DILAUDID ADMIN IN RECOVERY.
[2017-02-24 14:43] VITALS: BP 134/78
[2017-02-24 20:00] VITALS: BP 169/88
[2017-02-25] VITALS: BP 170/82
[2017-02-25 04:00] VITALS: BP 166/80
[2017-02-25 06:13] LABS: BASOPHILS 0.2 % (0-2); EOSINOPHILS 3.1 % (0-7); HEMATOCRIT 35.3 % (42.0-54.0); HEMOGLOBIN 11.6 g/dL (13.5-17.5); LYMPHOCYTES 39.8 % (15-50); MCH 31.4 pg (26.0-34.0); MCHC 32.9 g/dL (31.0-37.0); MCV 95.4 fL (80.0-100.0); MONOCYTES 16.5 % (2-11); NEUTROPHILS 40.4 % (40-80); PLATELET COUNT 129 10x3/uL (130-400); RDW 13.3 % (11.5-14.5); WBC 4.6 10x3/uL (4.8-10.8)
[2017-02-25 06:44] LABS: ALBUMIN 2.8 g/dL (3.4-5.0); ALKALINE PHOSPHATASE 57 U/L (46-116); ALT (SGPT) 26 U/L (10-68); BILIRUBIN - TOTAL 0.72 mg/dL (0.2-1.3); CALC OSMOLALITY 284 mosm/kg (275-300); CALCIUM 8.8 mg/dL (8.5-10.1); CARBON DIOXIDE 28.5 mmol/L (21.0-32.0); CHLORIDE - SERUM 106 mmol/L (98-107); GLUCOSE 93 mg/dL (74-106); POTASSIUM - SERUM 3.8 mmol/L (3.5-5.1); PROTEIN - SERUM 5.8 g/dL (6.4-8.2); SODIUM 142 mmol/L (136-145); UREA NITROGEN 17 mg/dL (7-18); eGFR NON AFRICAN AMERICAN 75 mL/min (90-120)
--- NOTE | 2017-02-25 08:17 | NUR ---
PT AOX4 RESP EVEN AND NONLABORED PT DENIES NEEDS AT THIS TIME IV TO RIGHT FOREARM PATENT AND INTACT AT THIS TIME SRX2 BED AT LOWEST SETTING CALL LIGHT WITHIN REACH WILL CONTINUE TO MONITOR
[2017-02-25 08:23] VITALS: BP 138/71
--- NOTE | 2017-02-25 08:54 | OP ---
PATIENT NAME: COOPER BUCIO MEDICAL RECORD: [id number] :29 LOCATION:D[id number] ADMISSION DATE:02/13/17 SURGEON: YAAKOV AHUMADA MD DATE OF OPERATION: 02/24/2017 SURGEON: Yaakov Ahumada MD ANESTHESIA: General anesthesia by Phoenix Tejada CRNA. 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 PROCEDURES: Cystoscopy and bladder stone removal. FINDINGS: Radiodense bladder stone 5 mm and an anterior, right bladder wall calyx. SPECIMENS: Bladder stone, 5 mm. ESTIMATED BLOOD LOSS: None. CLINICAL HISTORY: This is an 86-year-old male with a rather complicated history of recurrent urinary tract infections, always with Pseudomonas aeruginosa. Initially, it was thought to be due to an infected right renal staghorn calculus. This was removed by right percutaneous nephrolithotomy. He continued to have problems with voiding and recurrent urinary tract infections. He had a GreenLight laser TURP and even after that procedure, he had ongoing recurrent urinary tract infections with Pseudomonas. A CT scan of the abdomen and pelvis revealed 2 stones in the bladder wall, within diverticula. On 02/13/2017, I brought him to the OR and I managed to find a 1 cm stone in the bladder diverticulum and this was removed. I could not at that time find the second stone. I repeated the CT scan on the patient and it showed the persistence of the 5-mm bladder stone within the diverticulum. It is just to the right of a very large diverticulum and the anterior dome of the bladder. He remains in the hospital because of his IV antibiotic needs. He lives in a location where the homecare is not feasible. The plan is to keep him on IV antibiotics for 2 weeks until his infection finally clears up. Of course, it cannot clear up as long as infected stone is present. Therefore, we are going to try to remove this last infected stone. Since he is already on IV antibiotics on the floor, we did not give him any further antibiotics in the OR. DESCRIPTION OF PROCEDURE: The patient was given induction of general anesthesia. He was then placed in dorsal lithotomy position and prepped and draped. A 21-Senegalese cystoscope with 30-degree lens was used for visualization. 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 The scope was then able to pass through without difficulty. The rest of the urethra was free of strictures. Prostatic urethra shows the sloughed tissue from his prior TURP. Going into the bladder, we had to use fluoroscopy to guide the scope to the correct calyx. The bladder is studded with calyces with small openings. Once we found the correct calyx by fluoroscopy, the scope could not look into it because of its very anterior location. In fact, I had to turn the scope upside down to be able to look at the entrance of the calyx. I passed a flexible grasper into the calyx and using the fluoroscope for guidance, I was able to put the grasper around the stone and pull it out. The stone was initially caught at the entrance of the calyx and OPERATIVE REPORT [id number] COOPER BUCIO after a second attempt, I managed to remove the stone entirely using the grasper. The stone will be sent for stone analysis. The scope was used to empty the bladder and the scope was entirely removed. TRANSINT:[id number] Voice Confirmation ID: [id number] DOCUMENT ID: [id number] YAAKOV AHUMADA MD at 0854 CC: [id number] DICTATION DATE: 02/24/17 1403 BULB GRADER: 02/24/17 1509 [facility] IN [place] [id number] [place] [address]
[2017-02-25 12:34] VITALS: BP 152/83
[2017-02-25 16:29] VITALS: BP 138/81
--- NOTE | 2017-02-25 19:00 | NUR ---
REPORT RECEIVED AND CARE OF PT ASSUMED. PT LYING ON RIGHT SIDE WITH EYES CLOSED AND EASY RESPIRATIONS. IV IN RIGHT FA PATENT WITH NS INFUSING AT 50 ML / HR. TELEMETRY IN PLACE AND READING 65 SR AT THIS ASSESSMENT. WILL MONITOR CLOSEY FOR NEEDS. CALL LIGHT WITHIN REACH.
[2017-02-25 20:00] VITALS: BP 134/70
--- NOTE | 2017-02-25 21:00 | NUR ---
HS MEDICATIONS GIVEN. WILL CONTINUE TO MONITOR FOR NEEDS.
--- NOTE | 2017-02-25 22:00 | NUR ---
PT URINATED APPROXIMATELY 200 ML INTO URINAL...BRIGHT RED BLOODY URINE. WILL CONTINUE TO MONITOR CLOSELY.
[2017-02-26 04:00] VITALS: BP 127/70
--- NOTE | 2017-02-26 04:42 | NUR ---
LAST VOID PT HAD SEVERAL LARGE BLOOD CLOTS IN URINAL....URINE STILL VERY BLOODY.
[2017-02-26 05:48] LABS: BASOPHILS 0.4 % (0-2); EOSINOPHILS 3.1 % (0-7); HEMOGLOBIN 11.3 g/dL (13.5-17.5); IMMATURE GRANULOCYTES 0.2 % (0-5); LYMPHOCYTES 29.9 % (15-50); MCH 31.6 pg (26.0-34.0); MCHC 33.2 g/dL (31.0-37.0); MEAN PLATELET VOLUME 10.6 fL (7.4-10.4); MONOCYTES 12.7 % (2-11); NEUTROPHILS 53.7 % (40-80); RBC 3.58 10x6/uL (4.20-6.10); RDW 13.3 % (11.5-14.5); WBC 5.2 10x3/uL (4.8-10.8)
[2017-02-26 05:49] LABS: PLATELET COUNT 173 10x3/uL (130-400)
[2017-02-26 06:17] LABS: ALBUMIN 2.7 g/dL (3.4-5.0); ALKALINE PHOSPHATASE 59 U/L (46-116); ALT (SGPT) 21 U/L (10-68); BILIRUBIN - TOTAL 0.37 mg/dL (0.2-1.3); CALC OSMOLALITY 286 mosm/kg (275-300); CALCIUM 8.5 mg/dL (8.5-10.1); CARBON DIOXIDE 27.4 mmol/L (21.0-32.0); CHLORIDE - SERUM 107 mmol/L (98-107); GLUCOSE 104 mg/dL (74-106); POTASSIUM - SERUM 3.5 mmol/L (3.5-5.1); PROTEIN - SERUM 5.7 g/dL (6.4-8.2); SODIUM 143 mmol/L (136-145); UREA NITROGEN 17 mg/dL (7-18); eGFR NON AFRICAN AMERICAN 75 mL/min (90-120)
--- NOTE | 2017-02-26 06:46 | NUR ---
CALLED DR AHUMADA CONCERNING INCREASING PRESENCE OF BLOOD CLOTS AND BLOODY URINE. RECEIVED ORDER FOR 20 F GODWIN CATHETER AND IRRIGATION TO REMOVE CLOTS. DISCONTINUED LOVENOX.
[2017-02-26 08:40] VITALS: BP 127/56
--- NOTE | 2017-02-26 11:00 | NUR ---
20G GODWIN CATHETER INSERTED USING STERILE TECHNIQUE AT THIS TIME BLADDER IRRIGATED WITH STERILE WATER(60) AT A TIME 3 TIMES WITHOUT DIFFICULTY AT THIS TIME NO CLOTS WERE NOTICED AT THIS TIME
[2017-02-26 12:11] VITALS: BP 138/61
[2017-02-26 15:44] VITALS: BP 123/59
--- NOTE | 2017-02-26 19:00 | NUR ---
REPORT RECEIVED AND CARE OF PT ASSUMED. PT LYING ON LEFT SIDE WITH EYES CLOSED AND EASY RESPIRATIONS. IV IN RIGHT FA PATENT WITH NS INFUSING AT 50 ML / HR.. ARCHITECTURE DRAFTER / DILAUDID IN USE FOR PAIN CONTROL. TELEMETRY IN PLACE AND READING 71 SR AT THIS ASSESSMENT. WILL MONITOR CHRISTIANE FOR NEEDS.
--- NOTE | 2017-02-26 20:45 | NUR ---
HS MEDICATIONS GIVEN. WILL CONTINUE TO MONITOR FOR NEEDS. PT DECLINES HS SNACK AT THIS TIME. SIDE RAILS UP X2 FOR SAFETY.
[2017-02-26 21:25] VITALS: BP 136/59
--- NOTE | 2017-02-27 00:10 | NUR ---
URINE STILL VERY RED / BLOODY...NO CLOTS PRESENT.
[2017-02-27 00:27] VITALS: BP 139/60
[2017-02-27 05:32] LABS: BASOPHILS 0.2 % (0-2); EOSINOPHILS 2.9 % (0-7); HEMATOCRIT 35.1 % (42.0-54.0); HEMOGLOBIN 11.6 g/dL (13.5-17.5); IMMATURE GRANULOCYTES 0.2 % (0-5); LYMPHOCYTES 28.6 % (15-50); MCH 31.3 pg (26.0-34.0); MCV 94.6 fL (80.0-100.0); MEAN PLATELET VOLUME 11.2 fL (7.4-10.4); MONOCYTES 12.6 % (2-11); NEUTROPHILS 55.5 % (40-80); PLATELET COUNT 114 10x3/uL (130-400); RBC 3.71 10x6/uL (4.20-6.10); RDW 13.3 % (11.5-14.5); WBC 5.3 10x3/uL (4.8-10.8)
--- NOTE | 2017-02-27 05:39 | NUR ---
URINE LESS BLOODY THIS MORNING WITH NO CLOTS PRESENT....MORE PUNCH COLORED NOW.
[2017-02-27 05:53] VITALS: BP 137/69
[2017-02-27 06:01] LABS: ALBUMIN 2.9 g/dL (3.4-5.0); ALKALINE PHOSPHATASE 58 U/L (46-116); ALT (SGPT) 21 U/L (10-68); BILIRUBIN - TOTAL 0.43 mg/dL (0.2-1.3); CALC OSMOLALITY 288 mosm/kg (275-300); CALCIUM 8.7 mg/dL (8.5-10.1); CARBON DIOXIDE 30.3 mmol/L (21.0-32.0); CHLORIDE - SERUM 106 mmol/L (98-107); GLUCOSE 108 mg/dL (74-106); POTASSIUM - SERUM 3.6 mmol/L (3.5-5.1); PROTEIN - SERUM 5.7 g/dL (6.4-8.2); SODIUM 144 mmol/L (136-145); UREA NITROGEN 14 mg/dL (7-18); eGFR NON AFRICAN AMERICAN 75 mL/min (90-120)
[2017-02-27 08:33] VITALS: BP 126/64
[2017-02-27 12:16] VITALS: BP 126/78
[2017-02-27 16:41] VITALS: BP 137/74
[2017-02-27 19:44] VITALS: BP 125/60
--- NOTE | 2017-02-28 03:00 | NUR ---
PT RESTING QUIETLY, EYES CLOSED. RESP EVEN, UNLABORED. NO DISTRESS NOTED. CONTINUE CLERK GUIDE'S PLAN OF CARE.
[2017-02-28 05:07] VITALS: BP 137/70
[2017-02-28 05:47] LABS: BASOPHILS 0.2 % (0-2); EOSINOPHILS 3.9 % (0-7); HEMATOCRIT 35.4 % (42.0-54.0); HEMOGLOBIN 11.6 g/dL (13.5-17.5); MCH 31.1 pg (26.0-34.0); MCHC 32.8 g/dL (31.0-37.0); MCV 94.9 fL (80.0-100.0); MEAN PLATELET VOLUME 10.3 fL (7.4-10.4); MONOCYTES 11.7 % (2-11); NEUTROPHILS 55.2 % (40-80); RBC 3.73 10x6/uL (4.20-6.10); RDW 13.3 % (11.5-14.5); WBC 5.1 10x3/uL (4.8-10.8)
[2017-02-28 05:49] LABS: PLATELET COUNT 186 10x3/uL (130-400)
[2017-02-28 06:19] LABS: ALBUMIN 2.8 g/dL (3.4-5.0); ALKALINE PHOSPHATASE 61 U/L (46-116); ALT (SGPT) 20 U/L (10-68); BILIRUBIN - TOTAL 0.45 mg/dL (0.2-1.3); CALC OSMOLALITY 283 mosm/kg (275-300); CALCIUM 8.7 mg/dL (8.5-10.1); CHLORIDE - SERUM 106 mmol/L (98-107); GLUCOSE 106 mg/dL (74-106); POTASSIUM - SERUM 3.7 mmol/L (3.5-5.1); SODIUM 142 mmol/L (136-145); UREA NITROGEN 15 mg/dL (7-18); eGFR NON AFRICAN AMERICAN 75 mL/min (90-120)
--- NOTE | 2017-02-28 07:10 | NUR ---
REPORT RECEIVED FROM REMEDIATION PROJECT ENGINEER NURSE. CALL LIGHT IN REACH.
[2017-02-28 08:14] VITALS: BP 136/59
--- NOTE | 2017-02-28 08:32 | NUR ---
ASSESSMENT COMPLETED. REFUSES SCDs. CALL LIGHT IN REACH. WILL CONTINUE WITH PLAN OF CARE.
--- NOTE | 2017-02-28 10:22 | NUR ---
AM MEDS ADMINISTERED. STATES PAIN HAS DECREASED TO A 5. CALL LIGHT IN REACH.
[2017-02-28] MEDS ORDERED: XARELTO20 MG PO (10:52)
[2017-02-28 11:51] VITALS: BP 160/58
--- NOTE | 2017-02-28 12:16 | NUR ---
CARAFATE PO. WAITING FOR DC HOME.
--- NOTE | 2017-02-28 13:50 | NUR ---
IV DC'D WITH TIP INTACT.
--- NOTE | 2017-02-28 14:21 | NUR ---
PT AWAITING DISCHARGE. NO COMPLAINTS AT PRESENT. HAS BEEN WALKING IN HALLWAY.
--- NOTE | 2017-02-28 14:22 | NUR ---
DC'D TO VEHICLE WITH DAUGHTER. PATIENT REFUSED WC.
--- NOTE | 2017-02-28 16:23 | NUR ---
LATE ENTRY 1030 CM ADVISED OF DISCHARGE FOR TODAY. CM VISITED PATIENT TO OFFER HOME HEALTH OR DETERMINE ANY ADDITIONAL NEEDS. PATIENT DECLINES HOME HEALTH. STATES HE HAS NO NEEDS. HAS TRANSPORTATION TO HOME. IS ANXIOUS FOR DISCHARGE TO HOME. STATES HE HAS BEEN HOSPITALIZED FOR TWO WEEKS. DISCHARGE IMM REVIEWED WITH PATIENT. HE HAD NO QUESTIONS. SIGNATURE OBTAINED. PATIENT PROVIDED W/ COPY. COPY TO CHART.
[2017-03-02 10:16] LABS: CALCULI - CA HYDROGEN PHOS 15 % (()); CALCULI - CA OXALATE MONOHYDR 10 % (()); CALCULI - CALCIUM PHOSPHATE 75 % (()); CALCULI - COLOR Tan (()); CALCULI - SIZE 10x6x6 mm (())
[2017-03-08 16:12] LABS: CALCULI - CA OXALATE DIHYDRATE 15 % (()); CALCULI - CA OXALATE MONOHYDR 10 % (()); CALCULI - CALCIUM PHOSPHATE 75 % (()); CALCULI - COLOR Tan (()); CALCULI - SIZE 5x4x3 mm (()); CALCULI - WEIGHT 60.5 mg (())
[2017-04-18] MEDS ORDERED: OMEPRAZOLE40 MG PO (19:26)
[2017-04-18] MEDS ORDERED: ISOSORBIDE MONO30 M1 PO (19:54)
[2017-04-22] MEDS ORDERED: CARDIZEM CD360 MG PO (15:22)
[2017-04-22] MEDS ORDERED: ENULOSE10 G/15 ML PO (15:29)
[2017-04-22] MEDS ORDERED: FLOMAX0.4 MG PO (15:30)
[2017-04-22] MEDS ORDERED: ZOFRAN4 MG PO (15:30)
[2017-04-22] MEDS ORDERED: EMBEDA (15:33)
[2017-04-22] MEDS ORDERED: CARAFATE1 G/10 ML PO (15:33)
[2017-04-22] MEDS ORDERED: PROSCAR5 MG PO (15:34)
[2017-04-22] MEDS ORDERED: AMITIZA24 MCG PO (15:34)
[2017-04-22] MEDS ORDERED: LIDOCAINE 5 % O35 GM TOPICAL (15:36)
[2017-04-22] MEDS ORDERED: MECLIZINE HCL25 MG PO (15:37)
[2017-04-22] MEDS ORDERED: MIRALAX17 GM PO (15:38)
[2017-04-22] MEDS ORDERED: MILK OF MAGNESI30 ML PO (15:38)
[2017-04-22] MEDS ORDERED: XARELTO15 MG PO (15:39)
== END 2017-02-28 14:22 | disposition home or self-care (01) | DRG 694 ==
LOC: D.ER 16:12 → D.MS 18:09
PROVIDERS: Emergency Medicine; Family Medicine; Nurse Practitioner Family; Urology; ADMIT Family Medicine
PROC: 0TCB8ZZ Extirpation of Matter from Bladder, Via Natural or Artificial Opening Endoscopic (ICD-10-PCS; 2017-02-17)
PROC: 0TCB8ZZ Extirpation of Matter from Bladder, Via Natural or Artificial Opening Endoscopic (ICD-10-PCS; principal; 2017-02-24 12:15)
DX: N21.0 Calculus in bladder (principal); N39.0 Urinary tract infection, site not specified; G47.00 Insomnia, unspecified; K59.00 Constipation, unspecified; I10 Essential (primary) hypertension; I48.91 Unspecified atrial fibrillation; K21.9 Gastro-esophageal reflux disease without esophagitis; N40.0 Benign prostatic hyperplasia without lower urinary tract symptoms; G89.29 Other chronic pain; B96.5 Pseudomonas (aeruginosa) (mallei) (pseudomallei) as the cause of diseases classified elsewhere; N20.0 Calculus of kidney

== ENCOUNTER 2017-03-06 16:49 | Emergency (ER) | payer MEDICARE, MEDICAID ==
[2017-02-13 20:21] VITALS: BMI 29.3
[~2017-03-06 16:49] MED LIST changes: +BACLOFEN10 MG PO; +PEPCID AC20 MG PO; +XARELTO20 MG PO
[2017-03-06 17:45] LABS: APPEARANCE HAZY (CLEAR); COLOR YELLOW (YELLOW); SPECIFIC GRAVITY 1.015 (1.005-1.020)
[2017-03-06 17:46] LABS: BILIRUBIN NEGATIVE (NEGATIVE); GLUCOSE NEGATIVE (NEGATIVE); KETONE NEGATIVE (NEGATIVE); NITRITE NEGATIVE (NEGATIVE); PH 6.5 (5.0-6.0); PROTEIN 1+ mg/dL (NEGATIVE); UROBILINOGEN NORMAL (NORMAL)
[2017-03-06 17:52] LABS: BACTERIA FEW /hpf (NONE SEEN); EPITHELIAL CELLS 0-5 /hpf (0-5); HYALINE CAST OCC /lpf (NONE SEEN); RED CELLS - URINE 25-50 /hpf (0-5)
[2017-03-06 17:53] LABS: GRANULAR CAST RARE /lpf (NONE SEEN)
[2017-03-06 17:55] LABS: BASOPHILS 0.4 % (0-2); EOSINOPHILS 1.2 % (0-7); HEMATOCRIT 37.6 % (42.0-54.0); HEMOGLOBIN 12.4 g/dL (13.5-17.5); IMMATURE GRANULOCYTES 0.2 % (0-5); LYMPHOCYTES 37.8 % (15-50); MCH 31.7 pg (26.0-34.0); MCV 96.2 fL (80.0-100.0); MEAN PLATELET VOLUME 10.6 fL (7.4-10.4); MONOCYTES 11.2 % (2-11); NEUTROPHILS 49.2 % (40-80); PLATELET COUNT 190 10x3/uL (130-400); RBC 3.91 10x6/uL (4.20-6.10); RDW 13.2 % (11.5-14.5); WBC 5.7 10x3/uL (4.8-10.8)
[2017-03-06 17:57] LABS: UDS - AMPHET NEGATIVE QUAL (NEGATIVE); UDS - BARB NEGATIVE QUAL (NEGATIVE); UDS - BENZO NEGATIVE QUAL (NEGATIVE); UDS - COCAINE NEGATIVE QUAL (NEGATIVE); UDS - OPIATE POSITIVE QUAL (NEGATIVE); UDS - PCP NEGATIVE QUAL (NEGATIVE); UDS - THC NEGATIVE QUAL (NEGATIVE)
[2017-03-06 18:09] LABS: ALBUMIN 3.3 g/dL (3.4-5.0); ANION GAP 12.5 mmol/L (8-16); BILIRUBIN - TOTAL 1.02 mg/dL (0.2-1.3); CALCIUM 9.1 mg/dL (8.5-10.1); CARBON DIOXIDE 28.8 mmol/L (21.0-32.0); CREATININE - SERUM 1.1 mg/dL (0.6-1.3); POTASSIUM - SERUM 4.3 mmol/L (3.5-5.1); PROTEIN - SERUM 6.6 g/dL (6.4-8.2)
[2017-04-18] MEDS ORDERED: OMEPRAZOLE40 MG PO (19:26)
[2017-04-18] MEDS ORDERED: ISOSORBIDE MONO30 M1 PO (19:54)
[2017-04-22] MEDS ORDERED: CARDIZEM CD360 MG PO (15:22)
[2017-04-22] MEDS ORDERED: ENULOSE10 G/15 ML PO (15:29)
[2017-04-22] MEDS ORDERED: ZOFRAN4 MG PO (15:30)
[2017-04-22] MEDS ORDERED: FLOMAX0.4 MG PO (15:30)
[2017-04-22] MEDS ORDERED: EMBEDA (15:33)
[2017-04-22] MEDS ORDERED: CARAFATE1 G/10 ML PO (15:33)
[2017-04-22] MEDS ORDERED: PROSCAR5 MG PO (15:34)
[2017-04-22] MEDS ORDERED: AMITIZA24 MCG PO (15:34)
[2017-04-22] MEDS ORDERED: LIDOCAINE 5 % O35 GM TOPICAL (15:36)
[2017-04-22] MEDS ORDERED: MECLIZINE HCL25 MG PO (15:37)
[2017-04-22] MEDS ORDERED: MIRALAX17 GM PO (15:38)
[2017-04-22] MEDS ORDERED: MILK OF MAGNESI30 ML PO (15:38)
[2017-04-22] MEDS ORDERED: XARELTO15 MG PO (15:39)
== END 2017-03-06 20:53 | disposition home or self-care (01) ==
LOC: D.ER 16:49
PROVIDERS: Family Medicine; Nurse Practitioner Family
DX: M54.9 Dorsalgia, unspecified (principal); N39.0 Urinary tract infection, site not specified

== ENCOUNTER → 2017-03-21 13:52 | Outpatient (CLI) | payer MEDICARE, MEDICAID ==
[2017-02-13 20:21] VITALS: BMI 29.3
[~2017-03-21 13:52] MED LIST changes: +AMITIZA24 MCG PO; +BETAPACE 120 M120 MG PO; +CARDIZEM CD360 MG PO; +EMBEDA; +ENULOSE10 G/15 ML PO; +ISOSORBIDE MONO30 M1 PO; +LIDOCAINE 5 % O35 GM TOPICAL; +MECLIZINE HCL25 MG PO; +OMEPRAZOLE40 MG PO; +PLAVIX75 MG PO; +XARELTO15 MG PO; +ZOFRAN4 MG PO
== END | disposition home or self-care (01) ==
LOC: D.MRI 13:52
DX: M54.16 Radiculopathy, lumbar region (principal)

== ENCOUNTER 2017-04-04 13:49 | Emergency (ER) | payer MEDICARE, MEDICAID ==
[2017-02-13 20:21] VITALS: BMI 29.3
[~2017-04-04 13:49] MED LIST changes: -AMITIZA24 MCG PO; -BETAPACE 120 M120 MG PO; -CARDIZEM CD360 MG PO; -EMBEDA; -ENULOSE10 G/15 ML PO; -ISOSORBIDE MONO30 M1 PO; -LIDOCAINE 5 % O35 GM TOPICAL; -MECLIZINE HCL25 MG PO; -OMEPRAZOLE40 MG PO; -PLAVIX75 MG PO; -XARELTO15 MG PO; -ZOFRAN4 MG PO
[2017-04-04 14:59] LABS: BASOPHILS 0.1 % (0-2); EOSINOPHILS 1.1 % (0-7); HEMATOCRIT 42.3 % (42.0-54.0); HEMOGLOBIN 13.7 g/dL (13.5-17.5); IMMATURE GRANULOCYTES 0.1 % (0-5); LYMPHOCYTES 21.4 % (15-50); MCH 31.4 pg (26.0-34.0); MCHC 32.4 g/dL (31.0-37.0); MEAN PLATELET VOLUME 10.1 fL (7.4-10.4); MONOCYTES 11.8 % (2-11); NEUTROPHILS 65.5 % (40-80); PLATELET COUNT 212 10x3/uL (130-400); RBC 4.36 10x6/uL (4.20-6.10); RDW 13.5 % (11.5-14.5); WBC 8.2 10x3/uL (4.8-10.8)
[2017-04-04 15:22] LABS: ALBUMIN 3.6 g/dL (3.4-5.0); ANION GAP 4.7 mmol/L (8-16); BILIRUBIN - TOTAL 0.72 mg/dL (0.2-1.3); CALCIUM 8.7 mg/dL (8.5-10.1); CARBON DIOXIDE 37.9 mmol/L (21.0-32.0); CREATININE - SERUM 1.4 mg/dL (0.6-1.3); POTASSIUM - SERUM 4.6 mmol/L (3.5-5.1); PROTEIN - SERUM 6.7 g/dL (6.4-8.2)
[2017-04-18] MEDS ORDERED: OMEPRAZOLE40 MG PO (19:26)
[2017-04-18] MEDS ORDERED: ISOSORBIDE MONO30 M1 PO (19:54)
[2017-04-22] MEDS ORDERED: CARDIZEM CD360 MG PO (15:22)
[2017-04-22] MEDS ORDERED: ENULOSE10 G/15 ML PO (15:29)
[2017-04-22] MEDS ORDERED: ZOFRAN4 MG PO (15:30)
[2017-04-22] MEDS ORDERED: FLOMAX0.4 MG PO (15:30)
[2017-04-22] MEDS ORDERED: CARAFATE1 G/10 ML PO (15:33)
[2017-04-22] MEDS ORDERED: EMBEDA (15:33)
[2017-04-22] MEDS ORDERED: AMITIZA24 MCG PO (15:34)
[2017-04-22] MEDS ORDERED: PROSCAR5 MG PO (15:34)
[2017-04-22] MEDS ORDERED: LIDOCAINE 5 % O35 GM TOPICAL (15:36)
[2017-04-22] MEDS ORDERED: MECLIZINE HCL25 MG PO (15:37)
[2017-04-22] MEDS ORDERED: MILK OF MAGNESI30 ML PO (15:38)
[2017-04-22] MEDS ORDERED: MIRALAX17 GM PO (15:38)
[2017-04-22] MEDS ORDERED: XARELTO15 MG PO (15:39)
== END 2017-04-04 18:29 | disposition home or self-care (01) ==
LOC: D.ER 13:49
PROVIDERS: Emergency Medicine
DX: M54.16 Radiculopathy, lumbar region (principal); K59.00 Constipation, unspecified; I10 Essential (primary) hypertension

== ENCOUNTER 2017-04-28 10:49 | Outpatient (CLI) | payer MEDICARE, MEDICAID ==
[~2017-04-28] VITALS: Ht 177.8 cm; Wt 87.7 kg
--- NOTE | ~2017-04-28 | HP ---
PATIENT: COOPER BUCIO MEDICAL RECORD: [id number] ACCOUNT: [id number] LOCATION:ANNIE : 29 ADMISSION DATE: 04/28/17 HISTORY AND PHYSICAL EXAMINATION DIAGNOSES: 1. Unstable angina. 2. Coronary artery disease. 3. Thoracic aortic aneurysm. 4. Hypertension. 5. Paroxysmal atrial fibrillation. HISTORY: This is a gentleman who presented to the Emergency Room with chest pain. He has no history of ischemic heart disease. His chest pain has relatively typical angina symptomatology; however, it does radiate to his back. He has history of thoracic aortic aneurysm. CT scan reveals stability of the aneurysm. No leaking of the aneurysm. He is on Xarelto for paroxysmal atrial fibrillation. He is in sinus rhythm. He is on propafenone for that. REVIEW OF SYSTEMS: The patient reports easy bruising but reports no swollen glands. The patient reports no fever, no night sweats, no significant weight gain, no significant weight loss. No significant exercise tolerance. The patient reports no dry eyes, no irritation, no vision change. Patient reports no difficulty hearing and no ear pain. Patient reports no frequent nose bleeds or nose and sinus problems. Patient reports on arm pain on exertion. No shortness of breath while lying down. No history of heart murmur. Patient reports no cough, no wheezing or coughing up blood. Patient reports no abdominal pain, no vomiting. Normal appetite. No diarrhea and not vomiting blood. No nausea and no constipation. Patient reports no incontinence. No difficulty urinating. No hematuria. No increased frequency. Patient reports no muscle aches. No weakness, no arthralgias, no back pain. No swelling of the extremities. Patient reports no abnormal mole, no jaundice, no rashes. Reports no loss of consciousness. No weakness and no numbness. No seizures, dizziness, or headaches. The patient reports no depression, no sleep disturbance, feeling safe in a relationship and no alcohol abuse. Patient reports on fatigue. Reports no runny nose or sinus pressure. No itching, no hives, and no frequent sneezing. PHYSICAL EXAMINATION: GENERAL APPEARANCE: Well-nourished, well-developed, appears stated age. Level of distress, comfortable. PSYCHIATRIC: Mental status, alert, normal affect. Orientation, oriented to time, place and person. EYES: Lids and conjunctiva, noninjected. No discharge, no pallor. ENT: Lips, teeth, gums, normal dentition. Oropharynx, no cyanosis, no pallor. NECK: Carotid arteries, bilateral normal upstroke, no bruits, no thrills. JUGULAR VEINS: No jugular venous pressure or distention. CERVICAL LYMPH NODES: Nontender, nonenlarged. THYROID: Not enlarged. Nontender. No nodules. LUNGS: Respiratory effort, unlabored. CHEST: Normal curvature. No thoracic deformity. No chest wall tenderness. Percussion, resonant. Auscultation, clear. No wheezes, no rales, no rhonchi. CARDIOVASCULAR: Precordial exam, nondisplaced. No heaves or pericardial thrills. Rate and rhythm, regular. Heart sounds, normal S1, normal S2. No S3, no gallop, no rub. Systolic murmur, not heard. Diastolic murmur, not heard. HISTORY AND PHYSICAL [id number] COOPER BUCIO EXTREMITIES: No cyanosis, no edema. Peripheral pulses, full and equal in all extremities, except as noted. No bruits appreciated. ABDOMEN: Soft, nondistended. Normal aorta. No bruit. Nontender. No masses. Liver, nontender, no hepatomegaly. Spleen, nontender, no splenomegaly. MUSCULOSKELETAL: No joint tenderness. No joint swelling. No erythema. NEUROLOGICAL: Normal gait, normal strength, normal tone. SKIN: Warm and dry. OVERALL IMPRESSION: Chest pain compatible with angina, most likely this is hemodynamically significant coronary artery disease. We will hold the Xarelto, give Plavix. Proceed with coronary angiography. Further care depends on findings of the angiography. TRANSINT:[id number] Voice Confirmation ID: [id number] DOCUMENT ID: [id number] KYRIE MEDINA MD at 1323 CC: [id number] DICTATION DATE: 04/28/17 1159 [place]: 04/28/17 1226 [facility] CLI 04/29/[address] [address]
--- NOTE | ~2017-04-28 | OP ---
PATIENT NAME: COOPER BUCIO MEDICAL RECORD: [id number] :29 LOCATION:D.CAT ADMISSION DATE: SURGEON: KYRIE MEDINA MD DATE OF OPERATION: 04/29/2017 PROCEDURES: 1. PTCA stent LAD. 2. Left heart catheterization. 3. Selective coronary angiography. 4. Left ventriculogram. INDICATION: Unstable angina, coronary artery disease. PROCEDURE IN DETAIL: After informed consent was obtained and after a detailed explanation of the risks, benefits as well as alternative therapies, the patient elected to proceed with angiogram and angioplasty. The right femoral area was prepped and draped in normal sterile fashion. Right femoral artery was cannulated via modified Seldinger technique with placement of 6-Mohawk sheath. All catheters exchanged through this sheath. FINDINGS: Left ventriculogram was performed in standard 30-degree MCDANIELS view reveals global hypokinesis throughout all segments. Overall ejection fraction 35% to 40%. SELECTIVE CORONARY ANGIOGRAPHY: 1. Left main showed no significant angiographic disease. 2. Left anterior descending has an 80% stenosis proximally. 3. Left circumflex has moderate irregularities, but no flow-limiting stenosis. 4. Right coronary artery has [id number] irregularities, but no flow-limiting stenosis. PTCA STENT OF THE LAD: The stent used is a 3.5 x 22 mm Integrity. Result was 0% residual stenosis. OVERALL IMPRESSION: Successful percutaneous transluminal coronary angioplasty stent of the left anterior descending going from 80% initial stenosis to 0% residual stenosis. TRANSINT:[id number] Voice Confirmation ID: [id number] DOCUMENT ID: [id number] KYRIE MEDINA MD at 1324 CC: LUPE FERNÁNDEZ DO [id number] DICTATION DATE: 04/29/17 0923 CHAIN D[place]ER: 04/29/17 1148 [facility] CLI 04/29/17 [place] [address]
--- NOTE | ~2017-04-28 | DS ---
PATIENT:COOPER BUCIO :29 MEDICAL RECORD: [id number] DISCHARGE SUMMARY ADMISSION DATE: 04/28/17 DISCHARGE DATE: 04/29/17 DATE OF SERVICE: 04/29/2017. DIAGNOSES: 1. Unstable angina. 2. Coronary artery disease. 3. Percutaneous transluminal coronary angioplasty stent of left anterior descending this admission. HOSPITAL COURSE: This is a gentleman who presents with anginal symptomatology, found to have single vessel disease to the LAD, underwent successful PTCA stent of the LAD. Discharged home with the addition of Plavix to his medical regimen. Continue his Xarelto for his atrial fibrillation. Follow up with cardiology associates in 1 month. TRANSINT:[id number] Voice Confirmation ID: [id number] DOCUMENT ID: [id number] KYRIE MEDIAN MD at 1324 CC: [id number] DICTATION DATE: 04/29/17921 [place]: 04/29/17 1332 [facility] CLI 04/29/17 [id number] [place] [address]
--- NOTE | ~2017-04-28 | HEMODYNAMI ---
PATIENT:COOPER ALARCON MEDICAL RECORD: [id number] : 29 LOCATION:[address] ADMISSION DATE: 04/28/17 Generatedon:04/29/20179:15 Patient name: COOPER ALARCON Patient #: [id number] SSN: : 1930 Date of study: 04/29/2017 Page: Of Hemodynamic Procedure Report Patient Data Patient Demographics Procedure consent was obtained First Name: COOPER Gender: Male Last Name: FORTUNATO : 1930 Middle Initial: G Age: 86 year(s) Patient #: [id number] Race: Unknown Additional ID: [id number] Contact details Address: [address] [place] [address] State: [place] City: [place] Zip code: [address] Past Medical History Allergies: No known allergies Admission Admission Data Admission Date: 04/28/2017 Admission Time: 11:57 Room #: [facility] Procedure Procedure Types Cath Procedure Diagnostic Procedure LHC LHC w/Coronaries PCI Procedure Coronary Stent Coronary Stent Initial Miscellaneous Procedures Moderate Sedation up to 30 minutes Procedure Description Procedure Date Procedure Date: 04/29/2017 Procedure Start Time: 8:55 Procedure End Time: 9:15 Procedure Staff Name Function Shabbir Kelly MD Performing Physician Kristel Patino RT Monitor Dennis Regalado RN Nurse Reese Cha RT Scrub Procedure Data Cath Procedure Fluoroscopy Diagnostic fluoroscopy Total fluoroscopy Time: 4.5 time: 4.5 min min Diagnostic fluoroscopy Total fluoroscopy dose: 648 dose: 648 mGy mGy Contrast Material Contrast Material Type Amount (ml) Isovue 300 84 Entry Location Entry Primary Successful Side Size Upsize Upsize Entry Closure Succes sful Closure Location (Fr) 1 (Fr) 2 (Fr) Remarks Device Remarks Femoral Right 5 Fr 6 Fr 6 Fr Exoseal artery Long Short Estimated blood loss: 10 ml Diagnostic catheters Device Type Used For End Catheter Placement MULTIPACK Pigtail 5 Fr LV Angiography catheter MULTIPACK JL 4.0 5Fr Left Coronary catheter Angiography MULTIPACK 3DRC 5Fr Right Coronary catheter Angiography DIAGNOSTIC JL 6 5Fr Left Coronary catheter ([id number]) Angiography Procedure Complications No complications Procedure Medications Medication Administration Route Dosage Oxygen NC 2 l/min 0.9% NaCl I.V. 100 ml/hr Heparin Flush Bag added to field 2 bags (1000units/500ml NS) Fentanyl I.V. 50 mcg Versed I.V. 1 mg Lopressor I.V. 5 mg Fentanyl I.V. 50 mcg Versed I.V. 1 mg Heparin Bolus I.V. 4000 units Plavix P.O. 75 mg Hemodynamics Rest Heart Rate: 103 (bpm) Snapshots Pre Cath Intra NCS Post Cath Vital Signs Time Heart Resp SPO2 etCO2 NIBP (mmHg) Rhythm Pain Sedation Rate (ipm) (%) (mmHg) Status Level (bpm) 8:03:45 103 18 97 0 149/109(132) NSR 0 (11) 10(A) , No pain 8:08:24 103 19 97 0 142/102(126) NSR 0 (11) 10(A) , No pain 8:13:00 104 18 97 0 145/98(124) NSR 0 (11) 10(A) , No pain 8:17:36 103 20 97 0 139/101(119) NSR 0 (11) 10(A) , No pain 8:22:13 103 20 97 19.5 138/102(120) NSR 0 (11) 10(A) , No pain 8:26:50 103 18 97 0 130/101(118) NSR 0 (11) 10(A) , No pain 8:31:24 102 18 98 0 123/98(115) NSR 0 (11) 10(A) , No pain 8:35:58 103 19 97 31.5 125/89(106) NSR 0 (11) 10(A) , No pain 8:40:31 104 18 98 30 121/88(101) NSR 0 (11) 10(A) , No pain 8:45:03 104 17 97 30.8 108/83(95) NSR 0 (11) 10(A) , No pain 8:49:34 105 16 98 0 113/88(102) NSR 0 (11) 10(A) , No pain 8:54:33 105 18 0 Measuring NSR 0 (11) 10(A) , No pain 8:54:43 106 18 0 110/87(101) NSR 0 (11) 10(A) , No pain 8:59:16 104 16 97 36.1 120/87(103) NSR 0 (11) 9(A) , No pain 9:03:50 98 16 96 28.6 112/87(106) NSR 0 (11) 9(A) , No pain 9:08:22 98 18 97 36.8 113/80(91) NSR 0 (11) 9(A) , No pain 9:12:55 99 17 98 25.5 112/73(105) NSR 0 (11) 9(A) , No pain Medications Time Medication Route Dose Verified Delivered Reason Notes Effectiveness by by 8:15:03 Oxygen NC 2 Shabbir Alarcony Per physician l/min Leticia Regalado RN 8:15:12 0.9% NaCl I.V. 100 Shabbirrobert Alarcony Per physician ml/hr Leticia Regalado RN 8:15:23 Heparin Flush added 2 Shabbir Collins used for Bag to bags Leticia Regalado RN procedure (1000units/500ml field NS) 8:53:01 Fentanyl I.V. 50 Shabbir Alarcony for sedation mcg Leticia Regalado RN 8:53:09 Versed I.V. 1 mg Shabbir Collins for sedation Leticia Regalado RN 8:55:35 Lopressor I.V. 5 mg Shabbir Collins Per physician Letciia Regalado RN 8:57:20 Fentanyl I.V. 50 Shabbir Alarcony for sedation mcg Leticia Regalado RN 8:57:26 Versed I.V. 1 mg Shabbir Collins for sedation Leticia Regalado RN 9:04:45 Heparin Bolus I.V. 4000 Shabbir Collins for units Leticia Regalado RN anticoagulation 9:13:22 Plavix P.O. 75 mg Shabbir Collins for Leticia Regalado RN antiplatelet therapy Procedure Log Time Note 7:45:04 Dennis Regalado RN sent for patient. Start room use. 7:59:11 Time tracking: Regular hours 7:59:16 Plan of Care:Hemodynamics will remain stable., Cardiac rhythm will remain stable., Comfort level will be maintained., Respiratory function will remain adequate., Patient/ family verbilizes understanding of procedure., Procedure tolerated without complication., Recovers from procedure without complications.. 8:02:35 Patient received from Med II to CCL 1 Alert and oriented. Tansferred to table in Supine position. 8:02:36 Warm blankets applied, and jesus hugger turned on for patient comfort. 8:02:37 Correct patient and procedure confirmed by team. 8:02:38 Signed procedure consent form obtained from patient. 8:02:40 ECG and BP/O2 sat monitors applied to patient. 8:02:56 Vital chart was started 8:07:27 Rhythm: sinus tachycardia 8:07:28 Full Disclosure recording started 8:07:33 H&P Date Dictated: 04/28/2017 Within 30 days and on chart., H&P Addendum completed by physician on day of procedure. (MUST COMPLETE FOR ALL OUTPATIENTS). 8:07:35 Pre-procedure instructions explained to patient. 8:07:35 Pre-op teaching completed and patient verbalized understanding. 8:07:37 Family in patients room. 8:07:38 Patient NPO since Midnight. 8:07:44 Patient allergic to No known allergies 8:07:46 Is the patient allergic to Iodine/contrast media? No. 8:07:47 Is patient on blood thinner?Yes 8:07:50 ACC The patient was administered the following blood thiners within the last 24 hours: ACCPlavix 8:07:52 Patient diabetic? No. 8:07:54 Previous problem with sedation/anesthesia? No ? 8:07:56 Snore? Yes 8:07:57 Sleep apnea? No 8:07:58 Deviated septum? No 8:08:14 Opens mouth fully? Yes 8:08:14 Sticks out tongue? Yes 8:08:16 Airway obstruction? No ? 8:08:20 Dentures? Yes In 8:08:23 Pre procedure: right dorsailis pedis pulse 2+ Normal; easily identifiable; not easily obliterated 8:08:25 Patient pain scale 0/10 ?. 8:08:31 IV patent on arrival in left hand with 0.9% NaCl at KVO. 8:08:36 Lab results completed and on chart. 8:08:39 Right groin area was prepped with chlora-prep and draped in sterile fashion 8:08:40 Alarms reviewed by Patti N. 8:08:40 Sharps counted by scrub and verified by R.N. 8:08:45 Use device set Femoral Dx 8:08:45 ACIST Syringe (33773) opened to sterile field. 8:08:46 Bag Decanter (2002S) opened to sterile field. 8:08:46 Medline Cath Pack ([id number]) opened to sterile field. 8:08:47 SHEATH 5FR [place] (MCJ275) opened to sterile field. 8:08:47 DIAGNOSTIC WIRE .035 260cm J wire (958210) opened to sterile field. 8:08:48 ACIST Hand Control (71556) opened to sterile field. 8:08:49 ACIST Manifold (69604) opened to sterile field. 8:08:49 DIAGNOSTIC Multipack 5Fr catheter set (DA1504) opened to sterile field. 8:08:50 Tegaderm 4 x 4 (1626W) opened to sterile field. 8:08:51 PERCUTANEOUS ENTRY 19GA needle opened to sterile field. 8:09:44 Baseline sample Acquired. 8:13:12 Physician paged 8:15:03 Oxygen 2 l/min NC was administered by Dennis Regalado RN; Per physician; 8:15:12 0.9% NaCl 100 ml/hr I.V. was administered by Dennis Regalado RN; Per physician; 8:15:23 Heparin Flush Bag (1000units/500ml NS) 2 bags added to field was administered by Dennis Regalado RN; used for procedure; 8:48:57 Procedure delayed due to: Physician in another procedure 8:50:01 The patient's family notified of status per Dennis Regalado RN. 8:50:26 Patient resting comfortably on procedure table. 8:50:47 Final Timeout: patient, procedure, and site verified with staff and physician. All members of the team are in agreement. 8:50:50 Right groin site verified by team. 8:50:52 Physical assessment completed. ASA score P 2 - A patient with mild systemic disease as per Shabbir Kelly MD. 8:50:55 Sedation plan: IV Moderate Sedation Medication:Versed, Fentanyl 8:53:01 Fentanyl 50 mcg I.V. was administered by Dennis Regalado RN; for sedation; 8:53:09 Versed 1 mg I.V. was administered by Dennis Regalado RN; for sedation; 8:54:51 Procedure started. 8:55:10 Local anesthetic to right femoral artery with Lidocaine 2% by Shabbir Kelly MD.INITIAL ACCESS ONLY 8:55:26 A 5 Fr sheath was inserted into the Right Femoral artery 8:55:35 Lopressor 5 mg I.V. was administered by Dennis Regalado RN; Per physician; 8:56:09 Sheath upsized to a 6 Fr Long. 8:56:17 SHEATH 6FR ARROW 45cm (CL-76784) opened to sterile field. 8:57:20 Fentanyl 50 mcg I.V. was administered by Dennis Regalado RN; for sedation; 8:57:26 Versed 1 mg I.V. was administered by Dennis Regalado RN; for sedation; 8:58:03 A MULTIPACK Pigtail 5 Fr catheter was advanced over the wire and used for LV Angiography. 8:58:36 LV gram done using MCDANIELS 8:58:40 EF : 30 % 8:58:43 Injector settings: Ml/sec: 10, Volume: 20, 8:58:44 Catheter removed. 8:58:49 A MULTIPACK JL 4.0 5Fr catheter was advanced over the wire and used for Left Coronary Angiography. removed, unable to cannulate 9:00:00 A MULTIPACK 3DRC 5Fr catheter was advanced over the wire and used for Right Coronary Angiography. 9:00:55 Catheter removed. 9:01:39 A DIAGNOSTIC JL 6 5Fr catheter ([id number]) was advanced over the wire and used for Left Coronary Angiography. 9:02:10 Use device set TAUTH PCI 9:02:15 INFLATOR Merit BasixCompak (GV8269) opened to sterile field. 9:02:26 CHOICE PT Extra Support 182cm wire ([id number]) opened to sterile field. 9:02:49 GUIDE 6FR JL 6.0 catheter ([id number]) opened to sterile field. 9:04:20 6 Fr JL 6 guide catheter was inserted over the wire 9:04:39 SHEATH 6FR [place] (DOZ325) opened to sterile field. 9:04:45 Heparin Bolus 4000 units I.V. was administered by Dennis Regalado RN; for anticoagulation; 9:05:55 Guide Catheter removed. unable to cannulate vessel. 9:06:18 GUIDE 6FR EBU 4.5 catheter ([id number]) opened to sterile field. 9:06:38 6 Fr EBU 4.5 guide catheter was inserted over the wire 9:07:46 Choice PT ES wire advanced. 9:08:46 EXOSEAL 6Fr (EX600) opened to sterile field. 9:09:34 Inflation Number: 1 A INTEGRITY RX 3.5 x 22 stent ([id number]) was prepped and advanced across the Mid LAD. The stent was deployed at 15 ANNE for 0:09 (min:sec). 9:09:56 Stent catheter was removed intact over wire. 9:09:57 Wire removed. 9:09:57 Guide catheter removed. 9:10:12 Sheath upsized to a 6 Fr Short. 9:10:13 Sheath removed intact; hemostasis achieved with Exoseal to the Right Femoral artery. 9:10:52 Procedure ended.(Physican Out) 9:11:10 Fluoroscopy time 04.50 minutes. 9:11:13 Fluoroscopy dose: 648 mGy 9:11:13 Flurop Dose total: 648 9:11:26 Contrast amount:Isovue 300 84ml. 9:11:28 Sharps counted by scrub and verified by R.N. 9:11:29 Insertion/operative site no bleeding no hematoma. 9:11:32 Post-op/insertion site Right Femoral artery dressed using a 4 x 4 and Tegaderm. 9:11:35 Post right femoral artery:stable, clean and dry 9:11:36 Post Procedure Pulses reassessed and unchanged 9:11:38 Post-procedure physical assessment completed. ASA score P 2 - A patient with mild systemic disease as per Shabbir Kelly MD. 9:11:42 Post procedure rhythm: unchanged. 9:11:45 Estimated blood loss: 10 ml 9:11:47 Post procedure instruction explained to patient.Patient verbalizes understanding. 9:11:47 Patient needs reinforcement of post procedure teaching. 9:11:59 Procedure type changed to Cath procedure, Diagnostic procedure, LHC, LHC w/Coronaries, PCI procedure, Coronary Stent, Coronary Stent Initial, Miscellaneous Procedures, Moderate Sedation up to 30 minutes 9:12:08 Procedure Complication : No complications 9:12:10 See physician's report for complete and final results. 9:12:39 Procedure and supply charges have been captured, reviewed, submitted and are correct. 9:13:22 Plavix 75 mg P.O. was administered by Dennis Regalado RN; for antiplatelet therapy; 9:15:13 Vital chart was stopped 9:15:16 Report given to PCU. 9:15:18 Patient transfered to PCU with Bed. 9:15:26 Procedure ended. 9:15:26 Full Disclosure recording stopped 9:15:30 End room use (Document Last) Intervention Summary Intervention Notes Time ActionType Lesion and Equipment Action# Pressure Duration Attributes Used 9:09:34 Place stent Mid LAD INTEGRITY RX 1 15 00:09 3.5 x 22 stent ([id number]) Device Usage Item Name Manufacture Quantity Catalog Number Hospital Part Current Mini mal Lot# / Charge Number Stock Stock Serial# Code ACIST Acist 1 62421 536611 160440 276558 20 Syringe Medical (71968) Systems Inc Bag Decanter Microtek 1 2002S 688416 20980 044209 5 (2001S) Medical Inc. Medline Cath Cardinal 1 [id number] 123582 28138 429514 5 Pack Health ([id number]) SHEATH 5FR Terumo 1 OIK305 307599 547404 595853 40 [place] (RTX191) DIAGNOSTIC [facility] [place] 1 865022 945678 635619 750482 30 WIRE .035 260cm J wire (517057) ACIST Hand Acist 1 54842 177025 855370 394515 5 Control Medical (13797) Systems Inc ACIST Acist 1 71069 601596 497888 800333 5 Manifold Medical (48471) Systems Inc DIAGNOSTIC Cardinal 1 UM4118 321863 23806 144817 30 Multipack Health 5Fr catheter set (KY0176) Tegaderm 4 x 3M 1 1626W 905213 893659 493309 5 4 (1626W) PERCUTANEOUS Cook Medical 1 L12068 178262 680410 5 ENTRY 19GA needle SHEATH 6FR Teleflex 1 CL-11856 706869 043983 150852 5 ARROW 45cm (CL-74365) MULTIPACK Cardinal 1 152798 5 Pigtail 5 Fr Health catheter MULTIPACK JL Cardinal 1 786817 5 4.0 5Fr Health catheter MULTIPACK Cardinal 1 554816 5 3DRC 5Fr Health catheter DIAGNOSTIC Cardinal 1 [id number] 338418 842019 906655 5 JL 6 5Fr Health catheter ([id number]) INFLATOR [facility] [place] 1 ZQ0121 754373 697368 936302 15 [facility] [place] Medical BasixCompak (QQ8030) CHOICE PT Clifford 1 [id number] 568355 418921 300493 5 Extra Scientific Support 182cm wire ([id number]) GUIDE 6FR JL Medtronic 1 QK2CO59 939294 09376 173495 0 6.0 catheter (JV5GA23) SHEATH 6FR Terumo 1 FWH087 531774 480872 825265 40 [place] (DZK405) GUIDE 6FR Medtronic 1 [id number] 966614 36564 594509 0 EBU 4.5 catheter ([id number]) EXOSEAL 6Fr Cardinal 1 EX600 574289 506091 175509 10 (EX600) Health INTEGRITY RX Medtronic 1 [id number] 908110 779334 815299 5 [id number] 3.5 x 22 stent ([id number]) Signature Audit [place] Stage Time Signature Unsigned Intra-Procedure 04/29/2017 Kristel 9:15:39 AM Counts RT(R) Signatures Monitor : Kristel Signature : Counts RT Date : Time : [address] [address]
[~2017-04-28 10:49] MED LIST changes: +AMITIZA24 MCG PO; +CARDIZEM CD360 MG PO; +EMBEDA; +ENULOSE10 G/15 ML PO; +ISOSORBIDE MONO30 M1 PO; +LIDOCAINE 5 % O35 GM TOPICAL; +MECLIZINE HCL25 MG PO; +OMEPRAZOLE40 MG PO; +XARELTO15 MG PO; +ZOFRAN4 MG PO
[2017-04-28 11:26] LABS: HEMATOCRIT 40.5 % (42.0-54.0); HEMOGLOBIN 13.1 g/dL (13.5-17.5); LYMPHOCYTES 25.7 % (15-50); MCH 30.6 pg (26.0-34.0); MCHC 32.3 g/dL (31.0-37.0); MCV 94.6 fL (80.0-100.0); MEAN PLATELET VOLUME 9.8 fL (7.4-10.4); NEUTROPHILS 63.6 % (40-80); RBC 4.28 10x6/uL (4.20-6.10); RDW 13.3 % (11.5-14.5)
[2017-04-28 11:47] LABS: ALBUMIN 3.3 g/dL (3.4-5.0); ALKALINE PHOSPHATASE 72 U/L (46-116); ALT (SGPT) 19 U/L (10-68); CALC OSMOLALITY 287 mosm/kg (275-300); CALCIUM 8.9 mg/dL (8.5-10.1); CARBON DIOXIDE 32.6 mmol/L (21.0-32.0); CHLORIDE - SERUM 105 mmol/L (98-107); CREATININE - SERUM 1.4 mg/dL (0.6-1.3); GLUCOSE 111 mg/dL (74-106); POTASSIUM - SERUM 4.5 mmol/L (3.5-5.1); PROTEIN - SERUM 6.4 g/dL (6.4-8.2); SODIUM 142 mmol/L (136-145); UREA NITROGEN 24 mg/dL (7-18); eGFR NON AFRICAN AMERICAN 51 mL/min (90-120)
[2017-04-28 11:53] LABS: PLATELET COUNT 206 10x3/uL (130-400)
[2017-04-28 11:57] LABS: CHOL - HDL RATIO 2.9 ratio (2.3-4.9); CHOLESTEROL, TOTAL 132 mg/dL (0-200); CKMB 0.7 U/L (0.0-3.6); CREATINE KINASE 65 UL (21-232); HDL CHOLESTEROL 45 mg/dL (32-96); LDL CHOLESTEROL 70 mg/dL (0-100); LDL-HDL RATIO 1.6 ratio (1.5-3.5); TRIGLYCERIDE 89 mg/dL (30-200); TROPONIN-I < 0.017 ng/mL (0.000-0.060)
[2017-04-28 14:11] VITALS: BP 157/104; Ht 177.8 cm; Wt 87.7 kg
[2017-04-28 21:52] VITALS: BP 144/89
[2017-04-29 06:17] VITALS: BP 121/72
[2017-04-29 07:57] VITALS: BP 138/78
[2017-04-29] MEDS ORDERED: PLAVIX75 MG PO (09:54)
[2017-04-29] MEDS ORDERED: BETAPACE 120 M120 MG PO (09:55)
== END 2017-04-29 14:56 | disposition home or self-care (01) ==
LOC: OBSVTIME → D.ER 10:49 → D.CATH 10:49 → D.M2 11:57 → OBSVTIME 11:57 → D.ER 11:57 → D.M2 11:57 → EDSTATUS 13:00 → D.CATH 04-29 14:56 → D.M2 04-29 14:56
PROVIDERS: Emergency Medicine
DX: I25.110 Atherosclerotic heart disease of native coronary artery with unstable angina pectoris (principal); I71.2 Thoracic aortic aneurysm, without rupture; I48.0 Paroxysmal atrial fibrillation; Z79.01 Long term (current) use of anticoagulants; I10 Essential (primary) hypertension

== ENCOUNTER → 2018-01-26 13:25 | Outpatient (CLI) | payer MEDICARE, MEDICAID ==
[2017-04-28 14:11] VITALS: BMI 29.3
[~2018-01-26 13:25] MED LIST changes: +BETAPACE 120 M120 MG PO; +PLAVIX75 MG PO
== END | disposition home or self-care (01) ==
LOC: D.CT 13:25
DX: I71.2 Thoracic aortic aneurysm, without rupture (principal)

== ENCOUNTER → 2018-10-25 21:32 | Outpatient (CLI) | payer MEDICARE ==
[2017-04-28 14:11] VITALS: BMI 29.3
[~2018-10-25 21:32] MED LIST changes: +LIPITOR20 MG PO; +NORVASC5 MG PO
== END | disposition home or self-care (01) ==
LOC: D.LABREF 21:32
PROVIDERS: ATTEND Urology
DX: D72.829 Elevated white blood cell count, unspecified (principal); R31.9 Hematuria, unspecified

== ENCOUNTER 2018-11-02 11:35 | Day surgery (SDC) | payer MEDICARE ==
[2018-10-30 14:37] LABS: BASOPHILS 0.2 % (0-2); EOSINOPHILS 0.7 % (0-7); HEMATOCRIT 38.7 % (42.0-54.0); HEMOGLOBIN 12.7 g/dL (13.5-17.5); IMMATURE GRANULOCYTES 0.2 % (0-5); LYMPHOCYTES 35.1 % (15-50); MCH 29.7 pg (26.0-34.0); MCHC 32.8 g/dL (31.0-37.0); MCV 90.6 fL (80.0-100.0); MEAN PLATELET VOLUME 9.1 fL (7.4-10.4); NEUTROPHILS 53.8 % (40-80); PLATELET COUNT 203 10x3/uL (130-400); RBC 4.27 10x6/uL (4.20-6.10); RDW 15.7 % (11.5-14.5); WBC 5.9 10x3/uL (4.8-10.8)
[2018-10-30 14:46] LABS: APTT 30.8 SECONDS (22.8-39.4); INR 1.1 (0.85-1.17); PROTIME 13.7 SECONDS (11.6-15.0)
[2018-10-30 14:52] LABS: ANION GAP 6.8 mmol/L (8-16); CALCIUM 8.4 mg/dL (8.5-10.1); CARBON DIOXIDE 33.3 mmol/L (21.0-32.0); CREATININE - SERUM 1.3 mg/dL (0.6-1.3); POTASSIUM - SERUM 4.1 mmol/L (3.5-5.1)
--- NOTE | 2018-10-30 18:09 | NUR ---
KRYSTAL NOTE; DR. AHUMADA INFORMED PATIENT'S LAST DOSE PLAVIX 10/30/18. STATED THAT OK TO PROCEED WITH SURGERY 11/02/18.
[~2018-11-02] VITALS: Ht 177.8 cm; Wt 87.1 kg
[2018-11-02 14:02] VITALS: BP 160/79; Ht 177.8 cm; Wt 87.1 kg
--- NOTE | 2018-11-02 15:50 | NUR ---
REC'D FROM RR. FAMILY AT BEDSIDE. GODWIN TO GRAVITY DRAINAGE WITH BLOODY URIN IN BAG. FL TRAY BROUGHT TO PT.
--- NOTE | 2018-11-02 16:20 | NUR ---
TOLERATED FL DIET. NO CHANGES NOTED.
--- NOTE | 2018-11-02 16:50 | NUR ---
WRITTEN AND VERBAL DC INST. GIVEN TO PT.. VERBALIZED UNDERSTANDING. WRITTEN AND VERBAL DC INST. GIVEN TO PT AND FAMILY. VERBALIZED UNDERSTANDING.
--- NOTE | 2018-11-02 17:10 | NUR ---
DC'D HOME WITH FAMILY VIA PRIVATE VEHICLE. STABLE AT TIME OF DC.
--- NOTE | 2018-11-03 09:04 | OP ---
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 PROCEDURES: Cystoscopy, direct vision internal urethrotomy (DVIU), and UroLift times 1 implant. FINDINGS: Fossa navicularis urethral stricture. Obstructive right lateral lobe of the prostate near the bladder neck. BLOOD LOSS: Minimal. CLINICAL HISTORY: This is an 88-year-old male who had recurrent urinary tract infections with Pseudomonas when I first saw him in 2016. I removed a right staghorn renal calculus by PCNL in July 2016. Then, he had a GreenLight TURP with removal of 2 bladder stones on 01/20/2017. After that, he was infection free until about one month ago when he developed another urinary tract infection. Now, he has hesitancy and a slow urinary stream. IPSS score was 9, quality of life score was 2, and postvoid residual was 0 mL. He is not allergic to any medications. He was given Ancef on-call to the OR. He comes for cystoscopy to determine the cause of his bladder outlet obstruction and we will correct the cause of his bladder outlet obstruction. DESCRIPTION OF PROCEDURE: The patient was given IV sedation. He was then placed into dorsal lithotomy position. He was prepped and draped. I used the UroLift scope as a cystoscope. The scope could only enter into the fossa navicularis and then I encountered a tight urethral stricture. The scope was removed and we switched to the optic urethrotome. Once the scope was in, then we used a Sensor wire to pass through the stricture lumen and into the bladder. The cold knife was used to incise the stricture at the 12 o'clock position. Eventually, we were able to pass through the fossa navicularis stricture. The rest of the penile urethra showed no stricture. The prostate showed excellent resection on the left lateral lobe. There was still some residual right lateral lobe, especially near the bladder neck that was making contact with its opposite side and causing some obstruction. The bladder was heavily trabeculated and there were cellules and diverticula, but there were no bladder tumors seen. The Sensor wire was left in position. I then changed the optic urethrotome for the UroLift scope. At 1.5 cm distal to the bladder neck near the anterolateral sulcus, one UroLift unit was placed on the right lateral lobe. This opened up the entire bladder neck region. No further units were necessary. The UroLift scope was then removed. Over the Sensor wire, I inserted an indwelling Robison catheter, 16-Angolan in size. This was a Councill tip catheter which was placed over the wire. Once the catheter was in the bladder, then the balloon was inflated with 10 cc of sterile water and the guidewire was removed. The catheter was put to bag drainage. He will go home with a Robison catheter today and he will come next week to have the Robison catheter removed. OPERATIVE REPORT [id number] COOPER BUCIO TRANSINT:[id number] Voice Confirmation ID: [id number] DOCUMENT ID: [id number] MICHAEL AHUMADA MD at 0904 CC: [id number] DICTATION DATE: 11/02/18 1550 SWITCHBOARD MECHANIC: 11/02/18 [facility] 11/02/18 [facility] [address] [place] [address]
== END 2018-11-02 17:10 | disposition home or self-care (01) ==
LOC: D.OPS 11:35 → D.PAN 13:45 → D.OPS 17:10
PROVIDERS: Anesthesiology; ATTEND Urology
DX: N32.0 Bladder-neck obstruction (principal); N35.919 Unspecified urethral stricture, male, unspecified site; N40.1 Benign prostatic hyperplasia with lower urinary tract symptoms; N13.8 Other obstructive and reflux uropathy; Z01.812 Encounter for preprocedural laboratory examination
CPT/HCPCS: 52276; C9739

== ENCOUNTER 2018-11-14 22:47 | Emergency (ER) | payer MEDICARE ==
[~2018-11-14] VITALS: Ht 177.8 cm; Wt 87.3 kg
[2018-11-14 22:48] VITALS: Ht 177.8 cm; Wt 87.3 kg
[2018-11-14 23:47] LABS: HEMATOCRIT 36.8 % (42.0-54.0); HEMOGLOBIN 12.1 g/dL (13.5-17.5); MCH 30.3 pg (26.0-34.0); MCHC 32.9 g/dL (31.0-37.0); MEAN PLATELET VOLUME 9.6 fL (7.4-10.4); NEUTROPHILS 57.4 % (40-80); PLATELET COUNT 209 10x3/uL (130-400); RDW 15.5 % (11.5-14.5); WBC 6.3 10x3/uL (4.8-10.8)
[2018-11-14 23:53] LABS: APTT 39.7 SECONDS (22.8-39.4); INR 2.4 (0.85-1.17); PROTIME 25.4 SECONDS (11.6-15.0)
[2018-11-14 23:55] LABS: ALBUMIN 3.3 g/dL (3.4-5.0); ANION GAP 9.4 mmol/L (8-16); BILIRUBIN - TOTAL 0.83 mg/dL (0.2-1.3); CALCIUM 8.4 mg/dL (8.5-10.1); CREATININE - SERUM 1.2 mg/dL (0.6-1.3); POTASSIUM - SERUM 4.4 mmol/L (3.5-5.1); PROTEIN - SERUM 6.7 g/dL (6.4-8.2)
[2018-11-15 01:09] VITALS: BP 113/62
== END 2018-11-15 01:02 | disposition home or self-care (01) ==
LOC: D.ER 22:47
PROVIDERS: Family Medicine
DX: R04.0 Epistaxis (principal); Z79.01 Long term (current) use of anticoagulants

== ENCOUNTER 2018-12-06 17:06 | Emergency (ER) | payer MEDICARE ==
[~2018-12-06] VITALS: Ht 177.8 cm; Wt 90.0 kg
[2018-12-06 17:10] VITALS: Ht 177.8 cm; Wt 90.0 kg
[2018-12-06 17:55] LABS: BASOPHILS 0.2 % (0-2); EOSINOPHILS 1.3 % (0-7); HEMATOCRIT 31.3 % (42.0-54.0); HEMOGLOBIN 10.1 g/dL (13.5-17.5); IMMATURE GRANULOCYTES 0.2 % (0-5); LYMPHOCYTES 27.2 % (15-50); MCH 28.7 pg (26.0-34.0); MCHC 32.3 g/dL (31.0-37.0); MCV 88.9 fL (80.0-100.0); MEAN PLATELET VOLUME 9.1 fL (7.4-10.4); MONOCYTES 10.9 % (2-11); NEUTROPHILS 60.2 % (40-80); PLATELET COUNT 238 10x3/uL (130-400); RBC 3.52 10x6/uL (4.20-6.10); RDW 14.9 % (11.5-14.5)
[2018-12-06 18:05] LABS: INR 1.47 (0.85-1.17); PROTIME 17.2 SECONDS (11.6-15.0)
[2018-12-06 18:47] VITALS: BP 144/76
== END 2018-12-06 18:48 | disposition home or self-care (01) ==
LOC: D.ER 17:06
PROVIDERS: Family Medicine
DX: R04.0 Epistaxis (principal); Z79.01 Long term (current) use of anticoagulants

== ENCOUNTER 2018-12-16 11:54 | Emergency (ER) | payer MEDICARE ==
[~2018-12-16] VITALS: Ht 177.8 cm; Wt 87.3 kg
[2018-12-16 12:18] VITALS: Ht 177.8 cm; Wt 87.3 kg
[2018-12-16 12:52] LABS: BASOPHILS 0.3 % (0-2); EOSINOPHILS 1.2 % (0-7); HEMATOCRIT 30.4 % (42.0-54.0); HEMOGLOBIN 9.9 g/dL (13.5-17.5); IMMATURE GRANULOCYTES 0.2 % (0-5); LYMPHOCYTES 25.3 % (15-50); MCH 28.8 pg (26.0-34.0); MCHC 32.6 g/dL (31.0-37.0); MCV 88.4 fL (80.0-100.0); MEAN PLATELET VOLUME 10.2 fL (7.4-10.4); MONOCYTES 8.2 % (2-11); NEUTROPHILS 64.8 % (40-80); PLATELET COUNT 202 10x3/uL (130-400); RBC 3.44 10x6/uL (4.20-6.10); RDW 14.8 % (11.5-14.5); WBC 6.4 10x3/uL (4.8-10.8)
[2018-12-16 12:53] LABS: APTT 43.9 SECONDS (22.8-39.4); INR 2.72 (0.85-1.17); PROTIME 28.1 SECONDS (11.6-15.0)
[2018-12-16 12:59] LABS: ALBUMIN 3.6 g/dL (3.4-5.0); ALKALINE PHOSPHATASE 68 U/L (46-116); ALT (SGPT) 13 U/L (10-68); BILIRUBIN - TOTAL 0.94 mg/dL (0.2-1.3); CALC OSMOLALITY 283 mosm/kg (275-300); CALCIUM 8.7 mg/dL (8.5-10.1); CHLORIDE - SERUM 104 mmol/L (98-107); GLUCOSE 120 mg/dL (74-106); POTASSIUM - SERUM 4.7 mmol/L (3.5-5.1); PROTEIN - SERUM 6.8 g/dL (6.4-8.2); SODIUM 140 mmol/L (136-145); UREA NITROGEN 24 mg/dL (7-18); eGFR NON AFRICAN AMERICAN 75 mL/min (90-120)
[2018-12-16 13:31] VITALS: BP 132/78
== END 2018-12-16 13:32 | disposition home or self-care (01) ==
LOC: D.ER 11:54
PROVIDERS: Family Medicine
DX: R04.0 Epistaxis (principal)

== ENCOUNTER 2018-12-18 11:32 | Emergency (ER) | payer MEDICARE ==
[~2018-12-18] VITALS: Ht 177.8 cm; Wt 90.0 kg
[2018-12-18 11:53] VITALS: Ht 177.8 cm; Wt 90.0 kg
[2018-12-18 12:31] LABS: BASOPHILS 0.3 % (0-2); EOSINOPHILS 0.8 % (0-7); HEMATOCRIT 30.5 % (42.0-54.0); HEMOGLOBIN 9.6 g/dL (13.5-17.5); IMMATURE GRANULOCYTES 0.2 % (0-5); LYMPHOCYTES 27.3 % (15-50); MCH 27.8 pg (26.0-34.0); MCHC 31.5 g/dL (31.0-37.0); MCV 88.4 fL (80.0-100.0); MEAN PLATELET VOLUME 9.5 fL (7.4-10.4); MONOCYTES 10.6 % (2-11); NEUTROPHILS 60.8 % (40-80); PLATELET COUNT 239 10x3/uL (130-400); RBC 3.45 10x6/uL (4.20-6.10); RDW 14.9 % (11.5-14.5); WBC 6.1 10x3/uL (4.8-10.8)
[2018-12-18 12:37] LABS: APTT 30.1 SECONDS (22.8-39.4)
[2018-12-18 12:48] LABS: ALBUMIN 3.5 g/dL (3.4-5.0); ANION GAP 12.2 mmol/L (8-16); BILIRUBIN - TOTAL 1.25 mg/dL (0.2-1.3); CALCIUM 8.8 mg/dL (8.5-10.1); CARBON DIOXIDE 28.6 mmol/L (21.0-32.0); CREATININE - SERUM 1.2 mg/dL (0.6-1.3); POTASSIUM - SERUM 4.8 mmol/L (3.5-5.1); PROTEIN - SERUM 6.7 g/dL (6.4-8.2)
[2018-12-18 12:51] LABS: INR 1.11 (0.85-1.17); PROTIME 13.8 SECONDS (11.6-15.0)
[2018-12-18 12:57] LABS: THYROID STIMULATING HORMONE 3.23 uIU/mL (0.36-3.74); TROPONIN-I 0.017 ng/mL (0.000-0.060)
[2018-12-18 13:55] VITALS: BP 123/55
== END 2018-12-18 13:48 | disposition home or self-care (01) ==
LOC: D.ER 11:32
PROVIDERS: Family Medicine
DX: R04.0 Epistaxis (principal); R42 Dizziness and giddiness

== ENCOUNTER 2018-12-27 06:08 | Inpatient (IN) | payer MEDICARE ==
[~2018-12-27] VITALS: Ht 177.8 cm; Wt 85.7 kg
--- NOTE | 2018-12-27 07:00 | NUR ---
NASAL PACKING INSERTED INTO THE RT NARE PER DR. ENRIQUEZ. SLIGHT BLEEDING CONTINUES TO DRIP FROM THE RT NARE.
--- NOTE | 2018-12-27 07:00 | NUR ---
REPORT GIVEN TO YAMILEX VALDEZ
[2018-12-27 07:04] LABS: BASOPHILS 0.3 % (0-2); EOSINOPHILS 2.2 % (0-7); HEMATOCRIT 26.7 % (42.0-54.0); HEMOGLOBIN 8.4 g/dL (13.5-17.5); IMMATURE GRANULOCYTES 0.2 % (0-5); LYMPHOCYTES 24.7 % (15-50); MCH 27.5 pg (26.0-34.0); MCHC 31.5 g/dL (31.0-37.0); MCV 87.5 fL (80.0-100.0); MEAN PLATELET VOLUME 9.6 fL (7.4-10.4); MONOCYTES 13.2 % (2-11); NEUTROPHILS 59.4 % (40-80); PLATELET COUNT 255 10x3/uL (130-400); RBC 3.05 10x6/uL (4.20-6.10); RDW 14.9 % (11.5-14.5); WBC 6.3 10x3/uL (4.8-10.8)
--- NOTE | 2018-12-27 07:09 | NUR ---
PER DR. BLEDSOE, PT NPO. THIS EXPLAINED TO PT WHO VOICED UNDERSTANDING.
[2018-12-27 07:10] LABS: APTT 34.4 SECONDS (22.8-39.4); INR 1.38 (0.85-1.17); PROTIME 16.4 SECONDS (11.6-15.0)
[2018-12-27 07:16] LABS: ALBUMIN 3.2 g/dL (3.4-5.0); ALKALINE PHOSPHATASE 60 U/L (46-116); ALT (SGPT) 18 U/L (10-68); BILIRUBIN - TOTAL 0.71 mg/dL (0.2-1.3); CALC OSMOLALITY 284 mosm/kg (275-300); CALCIUM 8.4 mg/dL (8.5-10.1); CHLORIDE - SERUM 106 mmol/L (98-107); CREATININE - SERUM 1.2 mg/dL (0.6-1.3); GLUCOSE 104 mg/dL (74-106); POTASSIUM - SERUM 4.1 mmol/L (3.5-5.1); PROTEIN - SERUM 6.1 g/dL (6.4-8.2); SODIUM 141 mmol/L (136-145); UREA NITROGEN 23 mg/dL (7-18); eGFR NON AFRICAN AMERICAN 61 mL/min (90-120)
[2018-12-27 07:23] LABS: PRO BNP 907 pg/mL (0-450); TROPONIN-I < 0.017 ng/mL (0.000-0.060)
--- NOTE | 2018-12-27 08:24 | NUR ---
LINEN CHANGE DONE BY THIS NURSE, PT'S FACE CLEANED. PT'S CLOTHING SOILED, PT DECLINED PUTTING ON HOSPITAL GOWN WHEN OFFERED. PT AWARE HE IS BEING ADMITTED TO [facility].
[2018-12-27 10:17] VITALS: BP 135/77; BMI 27.3
--- NOTE | 2018-12-27 12:18 | NUR ---
PT RESTING IN BED. NO SIGNS OF DISTRESS. IV TO LEFT FORARM PATENT NO REDNESS OR TENDERNESS. PACKING TO RIGHT NARE. DENIES ANY FURTHER NEED AT THIS TIME. CALL LIGHT IN REACH.
[2018-12-27 17:01] LABS: % SATURATION 9 % (15-55); IRON 31 ug/dl (35-150); TOTAL IRON BIND CAPACITY 323 ug/dl (260-445); UNSAT IRON BIND CAPACITY 292 ug/dl (150-375)
[2018-12-27 17:10] VITALS: BP 145/69
[2018-12-27 21:53] VITALS: BP 103/64
[2018-12-28] VITALS (11 sets, daily range): BP systolic 113–143; BP diastolic 51–72; Ht 177.8 cm; Wt 85.7 kg
--- NOTE | 2018-12-28 | NUR ---
ASSESSMENT COMPLETE PACKING TO RT NARE IN PLACE DRAINS SMALL AMOUNT OF BLOOD.REMAINS NPO FOR SURGERY.
--- NOTE | 2018-12-28 05:45 | NUR ---
UA OBTAINED AND SENT TO LAB BATH TAKEN AND LINENS CHANGED FAMILY AT BEDSIDE.
[2018-12-28 06:03] LABS: BASOPHILS 0.3 % (0-2); EOSINOPHILS 1.8 % (0-7); HEMATOCRIT 24.1 % (42.0-54.0); HEMOGLOBIN 7.6 g/dL (13.5-17.5); IMMATURE GRANULOCYTES 0.2 % (0-5); LYMPHOCYTES 33.2 % (15-50); MCH 27.3 pg (26.0-34.0); MCHC 31.5 g/dL (31.0-37.0); MCV 86.7 fL (80.0-100.0); MEAN PLATELET VOLUME 10.8 fL (7.4-10.4); MONOCYTES 12.1 % (2-11); NEUTROPHILS 52.4 % (40-80); RBC 2.78 10x6/uL (4.20-6.10); RDW 14.8 % (11.5-14.5); WBC 6.2 10x3/uL (4.8-10.8)
[2018-12-28 06:09] LABS: INR 1.31 (0.85-1.17); PROTIME 15.7 SECONDS (11.6-15.0)
[2018-12-28 06:19] LABS: CALC OSMOLALITY 279 mosm/kg (275-300); CARBON DIOXIDE 27.3 mmol/L (21.0-32.0); CHLORIDE - SERUM 106 mmol/L (98-107); GLUCOSE 90 mg/dL (74-106); SODIUM 139 mmol/L (136-145); UREA NITROGEN 18 mg/dL (7-18); eGFR NON AFRICAN AMERICAN 75 mL/min (90-120)
--- NOTE | 2018-12-28 06:29 | NUR ---
PRE OP MED GIVEN REGLAN AND PEPCID SEE MAR.
[2018-12-28 06:47] LABS: PLATELET COUNT 116 10x3/uL (130-400)
[2018-12-28 07:46] LABS: APPEARANCE CLEAR (CLEAR); COLOR YELLOW (YELLOW)
[2018-12-28 07:47] LABS: BILIRUBIN NEGATIVE (NEGATIVE); GLUCOSE NEGATIVE (NEGATIVE); KETONE NEGATIVE (NEGATIVE); NITRITE NEGATIVE (NEGATIVE); PROTEIN NEGATIVE (NEGATIVE); UROBILINOGEN NORMAL (NORMAL); WHITE CELLS - URINE 0-5 /hpf (0-5)
[2018-12-28 07:48] LABS: BACTERIA FEW /hpf (NONE SEEN); EPITHELIAL CELLS OCC /hpf (0-5); RED CELLS - URINE 0-5 /hpf (0-5)
--- NOTE | 2018-12-28 07:59 | NUR ---
PT RESTING IN BED WITH EYES OPEN, DAUGHTER AT THE BEDSIDE. IV LOCATED TO LEFT FOREARM RUNNING NS @ 50ML. PACKING TO NOSE NOTED, WAITING TO GO DOWN FOR SURGERY. ALERT AND ORIENTED, NO S/S OF DISTRESS AT THIS TIME, DENIES ANY CURRENT NEEDS WILL CONT TO MONITOR.
[2018-12-28 08:41] LABS: PLATELET ESTIMATE NORMAL; PLATELET MORPHOLOGY PLT CLUMPS PRESENT
--- NOTE | 2018-12-28 09:20 | NUR ---
RCVED PT BACK FROM SURGERY VIA HOSPITAL STAFF AND BED. COMPLAINING OF BACKPAIN, ADMINISTERED PERCOCET PER DRS ORDERS.
--- NOTE | 2018-12-28 10:48 | NUR ---
PLACED EGGCRATE MATTRESS COVER ON BED PER DRS ORDERS.
--- NOTE | 2018-12-28 15:28 | NUR ---
PT REPORTS PAIN /10 REQUESTING SOMETHING FOR PAIN, ADMINISTERED PERCOCET PER DR.S ORDERS.
--- NOTE | 2018-12-28 19:00 | NUR ---
BEDSIDE REPORT RECEIVED AND CARE OF PT ASSUMED. PT LYING IN LOW LAI'S POSITION...JUST CAME FROM RESTROOM WHERE HE REPORTS A MED BM. IV TO LEFT FA PATENT WITH NS INFUSING AT 50 ML/HR. WILL MONITOR FOR NEEDS.
--- NOTE | 2018-12-28 20:08 | NUR ---
HS MEDICATIONS GIVEN. PT DECLINES PAIN MED AT THIS TIME. WILL CONTINUE TO MONITOR FOR NEEDS.
--- NOTE | 2018-12-28 20:30 | NUR ---
PT REPORTS LARGE SOFT BM. WILL CONTINUE TO FOLLOW FOR NEEDS.
[2018-12-29 05:07] VITALS: BP 128/52
--- NOTE | 2018-12-29 06:00 | NUR ---
PT SHOWERED AND ALL LINENS AND GOWN CHANGED.
--- NOTE | 2018-12-29 06:05 | NUR ---
PT IV PULLED OUT. RE-SITED TO LEFT UPPER ARM USING 20 GUAGE CATHETER IN ONE STICK. IV FLUIDS RE-STARTED. PT TOLERATED WELL.
[2018-12-29 06:11] LABS: BASOPHILS 0.4 % (0-2); EOSINOPHILS 1.6 % (0-7); HEMATOCRIT 25.4 % (42.0-54.0); HEMOGLOBIN 8.1 g/dL (13.5-17.5); IMMATURE GRANULOCYTES 0.2 % (0-5); LYMPHOCYTES 29.8 % (15-50); MCH 27.6 pg (26.0-34.0); MCHC 31.9 g/dL (31.0-37.0); MCV 86.7 fL (80.0-100.0); MEAN PLATELET VOLUME 9.9 fL (7.4-10.4); MONOCYTES 14.4 % (2-11); NEUTROPHILS 53.6 % (40-80); RBC 2.93 10x6/uL (4.20-6.10); RDW 14.8 % (11.5-14.5); WBC 5.6 10x3/uL (4.8-10.8)
[2018-12-29 06:28] LABS: CALC OSMOLALITY 279 mosm/kg (275-300); CALCIUM 7.9 mg/dL (8.5-10.1); CARBON DIOXIDE 26.1 mmol/L (21.0-32.0); CHLORIDE - SERUM 107 mmol/L (98-107); GLUCOSE 93 mg/dL (74-106); SODIUM 141 mmol/L (136-145); eGFR NON AFRICAN AMERICAN 75 mL/min (90-120)
[2018-12-29 06:30] LABS: UREA NITROGEN 11 mg/dL (7-18)
[2018-12-29 06:31] LABS: INR 1.18 (0.85-1.17); PROTIME 14.5 SECONDS (11.6-15.0)
[2018-12-29 06:33] LABS: PLATELET COUNT 171 10x3/uL (130-400)
--- NOTE | 2018-12-29 07:22 | NUR ---
PT RESTING IN BED WITH EYES OPEN, DAUGHTER AT HIS BEDSIDE. IV LOCATED TO UPPER LEFT ARM RUNNING NS @ 50ML/HR. ALERT AND ORIENTED WITH NO S/S OF DISTRESS. DENIES NEEDS AT THIS TIME, WILL CONT TO MONITOR.
[2018-12-29 08:09] VITALS: BP 141/72
[2018-12-29] MEDS ORDERED: BETAPACE 120 M120 MG PO (08:52)
[2018-12-29] MEDS ORDERED: MIRALAX17 GM PO (08:53)
--- NOTE | 2018-12-29 11:33 | MORECARE ---
CASE MANAGEMENT DISCHARGE SUMMARY PATIENT: COOPER BUCIO UNIT: [id number] ADM DATE: 12/27/18 AGE: 88 : 29 SEX: M ROOM/BED: D.2215 AUTHOR: MICHELLEDOC PHYSICIAN: REFERRING PHYSICIAN: LUPE FERNÁNDEZ DO DATE OF SERVICE: 12/29/18 Discharge Plan Patient Name: COOPER BUCIO Facility: [facility]:[place] : 1930 Planned Disposition: Home Anticipated Discharge Date: Discharge Date: Expected LOS: Initial Reviewer: [email or web address] Initial Review Date: 12/27/2018 Generated: 12/29/18 12:32 pm Comments DCP- Discharge Planning Updated by [email or web address]: Kristen Brand on 12/29/18 10:[address] Patient Name: COOPER BUCIO Admission Status: ER Accout number: [id number] Admission Date: 12-27-2018 : 1930 Admission Diagnosis: Attending: LUPE FERNÁNDEZ Current LOS: 2 Anticipated DC Date: Planned Disposition: Home Primary Insurance: [facility] MEDICARE SOLUTIONS Discharge Planning Comments: CM met with patient to complete initial dc planning assessment. CM educated patient on the CM role and verbal consent given by patient to complete assessment. Patient lives at home by himself where he is independent with her care. At discharge patient plans to return home and feels this is a safe discharge. His daughter will be his p d driver home. CM discussed availability of home health, rehab services, and medical equipment. Patient denied known discharge needs at this time. CM will continue to follow and will assist as needed with dc plans/needs. Structural Steel Detailer: Kristen Brand DCPIA - Discharge Planning Initial Assessment Updated by [email or web address]: Kristen Brand on 12/29/18 11:28 am * Is the patient Alert and Oriented? Yes * How many steps to enter\exit or inside your home? * PCP JOLENE * Pharmacy [facility] * Preadmission Environment Home Alone * ADLs Independent * Equipment None * List name and contact numbers for known caregivers / representatives who currently or will assist patient after discharge: ANKIT (DAUGHTER) [phone] * Verbal permission to speak to the caregivers and representatives has been obtained from the patient. Yes * Community resources currently utilized None * Additional services required to return to the preadmission environment? No * Can the patient safely return to the preadmission environment? Yes * Has this patient been hospitalized within the prior 30 days at any hospital? No Patient Name: COOPER BUCIO Page [id number] at 1133 All edits/amendments must be made on the electronic document DICTATION DATE: 12/29/181131 JOURNEYMAN MEAT CUTTER: YUSRA 12/29/181131 RPT#: [id number] DC DATE: STATUS: ADM IN [facility] [address] [place] [address] END OF REPORT
[2018-12-29] MEDS ORDERED: AFRIN15 ML NASAL (12:21)
--- NOTE | 2019-01-01 11:31 | CN ---
PATIENT NAME:COOPER ALARCON MEDICAL RECORD: [id number] : 28 LOCATION:D.MS [facility] ADMIT DATE: 12/27/18 ACCOUNT: [id number] CONSULTING PHYSICIAN: ALYSSA LA MD REFERRING PHYSICIAN: LUPE FERNÁNDEZ DO DATE OF CONSULTATION: 12/27/2018 HISTORY OF PRESENT ILLNESS: Mr. Alarcon is an 88-year-old male with recurrent problems with epistaxis. According to him and his family, he has been in the Emergency Room 4 times in the past month with profuse always right-sided epistaxis. His hemoglobin is down to 8. They are considering transfusion at this point, but he is on Plavix and Xarelto. He has abdominal aortic aneurysm. He has a history of pulmonary embolisms and he has atrial fibrillation. He has not been taken off anticoagulation. He was cauterized by ENT at [facility] a couple of days ago before he presented to [facility] with his episode of epistaxis. We have no records of that or how much his hemoglobin has dropped. I cannot find any information that since he has been taken care of elsewhere, mostly it looks like. PHYSICAL EXAMINATION: GENERAL: He is healthy-appearing 88-year-old sandor. He is alert, oriented, has a good voice. EYES: Sclerae and conjunctivae are normal. ORAL CAVITY AND OROPHARYNX: He has no trismus. Pharynx looks completely clean and dry. There is no evidence of any blood running down the back. NOSE: He has got a packing, is inflated on the right side. There is a little bit of blood around it, but there is no active bleeding. The left side of the nose, looks clear. NECK: No masses, no adenopathy. IMPRESSION: Repeated right-sided epistaxis. He has undergone multiple episodes of packing. He has been cauterized. He is having enough bleeding to consider transfusion. Again, close to that and has not been controlled. PLAN: I think I may have to take out the packing in the OR, look for a source, see if there is something that can be cauterized, possibly have to repack him since he is having to stay continue on aggressive anticoagulation. This may be fairly difficult to control, especially if it is profuse or if there is a lot of trauma from all these episodes of packing. TRANSINT:[id number] Voice Confirmation ID: [id number] DOCUMENT ID: [id number] ALYSSA LA MD at 1131 CC: [id number] DICTATION DATE: 12/27/18 1308 RAISE DRILLER: 12/27/18 1410 DIS IN 12/29/18 [facility] [address] [id number]
--- NOTE | 2019-01-01 11:31 | OP ---
PATIENT NAME: COOPER BUCIO MEDICAL RECORD: [id number] :28 LOCATION:D.MS [facility] ADMISSION DATE:12/27/18 SURGEON: ALEX LA MD DATE OF OPERATION: 12/28/2018 PREOPERATIVE DIAGNOSIS: Epistaxis, right-sided. POSTOPERATIVE DIAGNOSIS: Epistaxis, right-sided. PROCEDURE: Cautery of right-sided epistaxis. SURGEON: Alex La MD ANESTHESIA: General orotracheal. BLOOD LOSS: Less than 10 cc during the procedure. COMPLICATIONS: None. DISPOSITION: Recovery stable. No packing. Surgiflo and absorbable Gelfoam were used. No permanent packing. FINDINGS: He has been packed 4 times and cauterized in the past month. He is on Plavix and Xarelto, so basically diffuse oozing and bleeding from septal spur, inferior turbinate, middle turbinate just a lot of excoriation from the packing, but there was some bleeding from the anterior septum and the septal spur that were fairly profuse and required cauterization with the suction cautery. This seemed to be likely sources of the problem. PROCEDURE NOTE: He was brought to the operating room and placed in supine position, sedated and intubated by anesthesia. The table was turned 90 degrees, left side of the nose been decongested with Afrin. Right sided packing was removed and was examined. I did not use any Afrin, just carefully suctioned out all the blood and inspected all the area, the septal spur was bleeding. Of course, the anterior septum was bleeding, lot of mucosal tearing and scraping in that area. The inferior turbinate was oozing and nothing profuse. Certainly the floor of the nose was normal. The inferior meatus was completely clean. The nasal vault was clean as well. There was no blood above the middle turbinate that area looked completely clear. I looked at the posterior lateral nasal wall and nasopharynx, it also looked really clean. The entire maxillary sinus was full of blood. There was a very large antral window there, bigger than quarter size just full of old red clot. I suctioned all that out; that area was not refilling with any red blood. I cauterized a little bit of polypoid tissue just above that opening. It was vascular and friable, but it did not really look like it had been bleeding. I cauterized that with suction cautery. Anyway, both medial and lateral surfaces of the middle turbinate appeared normal. I carefully inspected all the areas of the nose really carefully for the next half hour. The pressure was going up and down a little bit to see if I could find any profuse source of bleeding, cauterized a couple of areas on the anterior septum that is when I really started up some profuse bleeding there that was controlled with cautery and appeared to be a possible source of the bleeding since it was so profuse once I started to deal with it. The other areas were just mucosal tears and excoriation from the packing that I took care of over the septal spur and the inferior turbinate. With the field OPERATIVE REPORT [id number] COOPER BUCIO completely clean and dry, I inspected it repeatedly, filled the middle meatus, nasal vault, and coated all these areas with the Surgiflo and then packed it with long strips of Gelfoam above and below the septal spur covering all these areas since he is requiring continued anticoagulation to try to prevent any oozing. The pharynx was completely clear, no bleeding from the left side. He was awakened, extubated, and transported to recovery in good condition. No complications. TRANSINT:[id number] Voice Confirmation ID: [id number] DOCUMENT ID: [id number] ALEX LA MD at 1131 CC: [id number] DICTATION DATE: 12/28/18 0838 GENERAL OFFICE DISPATCHER: 12/28/18 1226 DIS IN 12/29/18 [facility] [address] [place] [address]
--- NOTE | 2019-01-02 14:28 | MORECARE ---
CASE MANAGEMENT DISCHARGE SUMMARY PATIENT: COOPER BUCIO UNIT: [id number] ADM DATE: 12/27/18 AGE: 88 : 29 SEX: M ROOM/BED: D.2215 AUTHOR: MICHELLEDOC PHYSICIAN: REFERRING PHYSICIAN: LUPE FERNÁNDEZ DO DATE OF SERVICE: 01/02/19 Discharge Plan Patient Name: COOPER BUCIO Facility: [facility]:[place] : 1930 Planned Disposition: Home Anticipated Discharge Date: Discharge Date: 12/29/2018 Expected LOS: 0 Initial Reviewer: [email or web address] Initial Review Date: 12/27/2018 Generated: 01/02/19 3:28 pm Comments DCP- Discharge Planning Updated by [email or web address]: Kristen Brand on 12/29/18 10:[address] Patient Name: COOPER BUCIO Admission Status: ER Accout number: [id number] Admission Date: 12-27-2018 : 1930 Admission Diagnosis: Attending: LUPE FERNÁNDEZ Current LOS: 2 Anticipated DC Date: Planned Disposition: Home Primary Insurance: [facility] MEDICARE SOLUTIONS Discharge Planning Comments: CM met with patient to complete initial dc planning assessment. CM educated patient on the CM role and verbal consent given by patient to complete assessment. Patient lives at home by himself where he is independent with her care. At discharge patient plans to return home and feels this is a safe discharge. His daughter will be his driver salesman home. CM discussed availability of home health, rehab services, and medical equipment. Patient denied known discharge needs at this time. CM will continue to follow and will assist as needed with dc plans/needs. Workgroup Leader: Kristen Brand DCPIA - Discharge Planning Initial Assessment Updated by [email or web address]: Kristen Brand on 12/29/18 11:28 am * Is the patient Alert and Oriented? Yes * How many steps to enter\exit or inside your home? * PCP JOLENE * Pharmacy [facility] * Preadmission Environment Home Alone * ADLs Independent * Equipment None * List name and contact numbers for known caregivers / representatives who currently or will assist patient after discharge: ANKIT (DAUGHTER) [phone] * Verbal permission to speak to the caregivers and representatives has been obtained from the patient. Yes * Community resources currently utilized None * Additional services required to return to the preadmission environment? No * Can the patient safely return to the preadmission environment? Yes * Has this patient been hospitalized within the prior 30 days at any hospital? No Last DP export: 12/29/18 10:33 a Patient Name: COOPER BUCIO Page [phone] at 1428 All edits/amendments must be made on the electronic document DICTATION DATE: 01/02/191427 OFFICE MOVER: YUSRA 01/02/191427 RPT#: [id number] DC DATE:12/29/18 STATUS: DIS IN [facility] [address] [place] [address] END OF REPORT
== END 2018-12-29 13:27 | disposition home or self-care (01) | DRG 151 ==
LOC: OBSVTIME → D.ER 06:08 → D.OPS 06:08 → OBSVTIME 08:06 → D.ER 08:06 → D.MS 08:06 → D.ER 08:42 → D.MS 15:05 → EDSTATUS 12-28 07:30 → D.MS 12-29 13:27
PROVIDERS: Family Medicine; Internal Medicine Nephrology; Otolaryngology; ADMIT Family Medicine; ATTEND Family Medicine
PROC: 093K7ZZ Control Bleeding in Nasal Mucosa and Soft Tissue, Via Natural or Artificial Opening (ICD-10-PCS; principal; 2018-12-28 07:30)
DX: R04.0 Epistaxis (principal); D62 Acute posthemorrhagic anemia; I48.91 Unspecified atrial fibrillation; Z79.01 Long term (current) use of anticoagulants; D69.6 Thrombocytopenia, unspecified; R19.5 Other fecal abnormalities

== ENCOUNTER → 2019-03-05 10:43 | Outpatient (CLI) | payer MEDICARE ==
[2018-12-28 13:55] VITALS: BMI 27.1
[~2019-03-05 10:43] MED LIST changes: +AFRIN15 ML NASAL; +VOLTAREN75 MG PO
== END | disposition home or self-care (01) ==
LOC: D.CT 10:43
PROVIDERS: ATTEND Urology
DX: M25.551 Pain in right hip (principal); R10.9 Unspecified abdominal pain

== ENCOUNTER 2019-03-05 12:04 | Emergency (ER) | payer MEDICARE ==
[~2019-03-05] VITALS: Ht 177.8 cm; Wt 87.3 kg
[~2019-03-05 12:04] MED LIST changes: -VOLTAREN75 MG PO
[2019-03-05 12:24] VITALS: Ht 177.8 cm; Wt 87.3 kg
[2019-03-05] MEDS ORDERED: VOLTAREN75 MG PO (13:28)
[2019-03-05 14:01] VITALS: BP 127/64
== END 2019-03-05 14:08 | disposition home or self-care (01) ==
LOC: D.ER 12:04
DX: M54.5 Low back pain (principal); I10 Essential (primary) hypertension; Z72.0 Tobacco use; M19.90 Unspecified osteoarthritis, unspecified site; I25.10 Atherosclerotic heart disease of native coronary artery without angina pectoris

== ENCOUNTER 2019-04-19 08:22 | Day surgery (SDC) | payer MEDICARE ==
[~2019-04-19] VITALS: Ht 177.8 cm; Wt 81.6 kg
[~2019-04-19 08:22] MED LIST changes: +VOLTAREN75 MG PO
[2019-04-19 08:57] LABS: BASOPHILS 0.2 % (0-2); EOSINOPHILS 1.7 % (0-7); HEMATOCRIT 31.8 % (42.0-54.0); HEMOGLOBIN 9.7 g/dL (13.5-17.5); IMMATURE GRANULOCYTES 0.3 % (0-5); LYMPHOCYTES 25.5 % (15-50); MCH 24.4 pg (26.0-34.0); MCHC 30.5 g/dL (31.0-37.0); MCV 80.1 fL (80.0-100.0); MEAN PLATELET VOLUME 8.6 fL (7.4-10.4); NEUTROPHILS 60.3 % (40-80); RBC 3.97 10x6/uL (4.20-6.10); RDW 21.1 % (11.5-14.5); WBC 6.5 10x3/uL (4.8-10.8)
[2019-04-19 09:04] LABS: PLATELET COUNT 243 10x3/uL (130-400)
[2019-04-19 09:05] LABS: CALC OSMOLALITY 282 mosm/kg (275-300); CALCIUM 8.8 mg/dL (8.5-10.1); CARBON DIOXIDE 28.3 mmol/L (21.0-32.0); CHLORIDE - SERUM 106 mmol/L (98-107); GLUCOSE 105 mg/dL (74-106); POTASSIUM - SERUM 4.5 mmol/L (3.5-5.1); SODIUM 140 mmol/L (136-145); UREA NITROGEN 24 mg/dL (7-18); eGFR NON AFRICAN AMERICAN 75 mL/min (90-120)
[2019-04-19 09:09] LABS: APTT 29.2 SECONDS (22.8-39.4); INR 1.06 (0.85-1.17); PROTIME 13.3 SECONDS (11.6-15.0)
[2019-04-19 09:41] VITALS: Ht 177.8 cm; Wt 81.6 kg
[2019-04-19 10:54] LABS: APPEARANCE SL CLDY (CLEAR); BILIRUBIN NEGATIVE (NEGATIVE); COLOR YELLOW (YELLOW); GLUCOSE NEGATIVE (NEGATIVE); KETONE NEGATIVE (NEGATIVE); NITRITE NEGATIVE (NEGATIVE); PROTEIN NEGATIVE (NEGATIVE); UROBILINOGEN NORMAL (NORMAL)
[2019-04-19 10:56] LABS: BACTERIA MODERATE /hpf (NEGATIVE); EPITHELIAL CELLS 0-5 /hpf (0-5); RED CELLS - URINE NONE SEEN /hpf (0-5); WHITE CELLS - URINE 0-5 /hpf (NEGATIVE)
[2019-04-19 10:57] LABS: AMORPHOUS SEDIMENT <1+ /lpf (NONE SEEN); MUCUS <1+ /lpf (NONE SEEN)
--- NOTE | 2019-04-19 12:30 | NUR ---
RIGHT HAND CELLULITIS. NOTED IN HOLDING AREA PRIOR TO SURGERY
--- NOTE | 2019-04-19 13:45 | NUR ---
DR AHUMADA ENTERS ENTERS ROOM TO SPEAK WITH PATIENT AND FAMILY
--- NOTE | 2019-04-19 13:55 | NUR ---
DISCHARGE INSTRUCTIONS REVIEWED WITH PATIENT AND DAUGHTERS, DISCHARGED HOME VIA WHEELCHAIR TO PRIVATE VEHICLE WITH DAUGHTER
--- NOTE | 2019-04-20 08:35 | OP ---
PATIENT NAME: COOPER BUCIO MEDICAL RECORD: [id number] :28 LOCATION:D.OPS ADMISSION DATE: SURGEON: YAAKOV AHUMADA MD DATE OF OPERATION: 04/19/2019 SURGEON: Yaakov Ahumada MD ANESTHESIA: TIVA by Lisa Ho CRNA. PREOPERATIVE DIAGNOSIS: History of bladder cancer, right-hand cellulitis. PROCEDURE: Cystoscopy. FINDINGS: On cystoscopy, a long obstructive lateral lobes of the prostate with signs of previous TURP. Trabeculated bladder with cellules and diverticula. Single ureteral orifices. There is some stone debris in the bladder, but no tumors were seen. The right hand the dorsal surface has cellulitis associated with abrasion of the skin from a fall about a week ago. There is no fluctuance or tenderness to suggest an abscess. CLINICAL HISTORY: This is an 88-year-old male with a previous history of BPH and urinary tract infections. He had a GreenLight laser TURP and then later, I performed an UroLift implantation times 1 to open up some residual obstruction. He also has a history of urethral stricture, which I have dilated. There is a question of history of bladder cancer in the past. He comes today for cystoscopy. While I was seeing him in the preoperative holding area, he mentioned that he had fallen and hurt his hand. On examining the hand, there is a significant amount of cellulitis, although there is no fluctuance to suggest an abscess. I will be giving him vancomycin to cover gram-positive and Levaquin to cover the Gram negatives. ALLERGIES: He has no drug allergies. DESCRIPTION OF PROCEDURE: The patient was given the IV antibiotics. He was then placed into the lithotomy position after being given IV sedation. Cystoscopy was performed using a 17-Turkmen cystoscope with 30-degree lens. He has a slight annular stricture in the proximal urethra, which was easily passed through with the scope. There is enlargement of the lateral lobe of the prostate, but there are signs of previous TURP and there is a channel through which he can void. The bladder was heavily trabeculated and there is some debris in the bladder. No tumors were seen. The bladder was emptied through the scope and the scope was removed. I will see the patient in followup in 2 weeks' time to check on his hand and also to check the urine to be sure there is no UTI. I will be giving him a script for Augmentin in the interim. TRANSINT:[id number] Voice Confirmation ID: [id number] DOCUMENT ID: [id number] OPERATIVE REPORT [id number] COOPER BUCIO ROBERT S MD at 0835 CC: [id number] DICTATION DATE: 04/19/19 1245 OPERATING ROOM AIDE: 04/19/[address] [facility] 04/19/19 [place] [id number]
== END 2019-04-19 13:58 | disposition home or self-care (01) ==
LOC: D.OPS 08:22 → D.PAN 10:30 → D.OPS 11:50 → D.PAN 12:25 → D.OPS 13:30
PROVIDERS: Anesthesiology; ATTEND Urology
DX: Z85.51 Personal history of malignant neoplasm of bladder (principal); L03.113 Cellulitis of right upper limb; N30.00 Acute cystitis without hematuria; I25.10 Atherosclerotic heart disease of native coronary artery without angina pectoris; I26.99 Other pulmonary embolism without acute cor pulmonale; I48.91 Unspecified atrial fibrillation; R04.0 Epistaxis; D68.32 Hemorrhagic disorder due to extrinsic circulating anticoagulants; Z87.442 Personal history of urinary calculi; M54.9 Dorsalgia, unspecified; D29.1 Benign neoplasm of prostate

== ENCOUNTER 2019-05-02 14:10 | Outpatient (CLI) | payer MEDICARE ==
[~2019-05-02] VITALS: Ht 177.8 cm; Wt 81.8 kg
[2019-05-02 14:36] VITALS: BP 136/53; Ht 177.8 cm; Wt 81.8 kg
--- NOTE | 2019-05-02 17:14 | NUR ---
1650 MIDLINE CATHETER FLUSHED WITH 10ML OF NS AND CAPPED
== END 2019-05-02 17:00 | disposition home or self-care (01) ==
LOC: D.OPS 14:10
PROVIDERS: ATTEND Urology
DX: N39.0 Urinary tract infection, site not specified (principal); Z16.24 Resistance to multiple antibiotics